=== PATIENT | male | born 1970 | race African-American/Black ===

== ENCOUNTER → 2016-09-20 | Outpatient (CLI) | payer MEDICARE ==
[~2016-09-20] MED LIST: AMLO10 PO; CINA30 PO; CLON.2 PO; RAMI10CA PO; SEVEL800 OR; TOPR100T15 PO
--- NOTE | 2016-09-21 14:16 | EKG ---
Date Performed: 09/20/2016 Time Performed: 14:07:59 PTAGE: 46 years EKG: Sinus rhythm POSSIBLE LEFT ATRIAL ENLARGEMENT BORDERLINE ECG PREVIOUS TRACING : 08/06/2013 05.35 Since previous tracing, R-wave progression has slightly imp roved, otherwise no significant change. DOCTOR: rGeg Taylor Interpretating Date/Time 09/21/2016 14:14:07
== END ==
LOC: HCAV 13:28
PROVIDERS: ATTEND Internal Medicine Nephrology
DX: N18.5 Chronic kidney disease, stage 5 (principal); R94.31 Abnormal electrocardiogram [ECG] [EKG]
CPT/HCPCS: 93005

== ENCOUNTER 2017-02-15 05:18 | Inpatient (IN) | payer MEDICARE, MEDICAID ==
[~2017-02-15] VITALS: Ht 172.7 cm; Wt 134.5 kg
[2017-02-15 05:20] VITALS: BP 159/91; PULSE 81; RESP 16; TEMP 98.1; O2SAT 98
[2017-02-15] MEDS ORDERED: CINA30 PO (05:44)
[2017-02-15] MEDS ORDERED: AMLO10TA2 PO (05:44)
[2017-02-15] MEDS ORDERED: CLON0.2T PO (05:44)
[2017-02-15] MEDS ORDERED: TOPR100T PO (05:44)
[2017-02-15] MEDS ORDERED: SEVEL800 PO (05:44)
[2017-02-15] MEDS ORDERED: ALTA10CA12 PO (05:44)
--- NOTE | 2017-02-15 06:21 | PD ---
HPI Chief Complaint: Edema Time Seen by Provider: 05:43 Travel History International Travel<30 days: No Contact w/Intl Traveler<30days: No Traveled to known affect area: No History of Present Illness HPI Patient is a 46-year-old male with AV fistula in his left upper arm. It was placed many years ago and revised withion last year ago by Dr. Ramos vascular surgeon. Patient says for the last few days he's felt it swelling and tender. It is not hot is not erythematous. He was last dialyzed on Saturday 5 days ago Without complications he was able to be dialyzed a full-time on the machine. Now he says it is swelling significantly in the last 24 hours. took nothing for the pain , has not seen his Nephro MD Hedrick for this compliant. [facility] Past Medical History Arthritis: No Asthma: No Autoimmune Disease: No Blood Disorders: No Heart Rhythm Problems: No Cancer: No Cardiovascular Problems: Yes High Cholesterol: No Chemotherapy: No Chest Pain: No Congestive Heart Failure: Yes COPD: No Cerebrovascular Accident: No Diabetes: No Diminished Hearing: No Endocrine: No GERD: No Glaucoma: No Genitourinary: No Headaches: No Hepatitis: No Hiatal Hernia: No Hypertension: Yes Immune Disorder: No Kidney Stones: No Musculoskeletal: No Neurologic: No Psychiatric: No Respiratory: Yes Immunizations Current: Yes Myocardial Infarction: No Radiation Therapy: No Renal Failure: Yes (DIALYSIS M,W,F) Seizures: No Sickle Cell Disease: No Sleep Apnea: No Thyroid Disease: No Ulcer: No Past Surgical History Abdominal Surgery: No AICD: No Cardiac Surgery: Yes Ear Surgery: No Endocrine Surgery: No Eye Surgery: No Genitourinary Surgery: No Gynecologic Surgery: No Joint Replacement: No Oral Surgery: No Pacemaker: No Thoracic Surgery: No Other Surgery: Yes (AV FISTULA LEFT UPPER ARM) Social History Alcohol Use: Yes (OCC) Tobacco Use: No Substance Use: No Allergies-Medications (Allergen,Severity, Reaction): Coded Allergies: No Known Allergies (Verified Allergy, Unknown, 02/15/17) Reported Meds & Prescriptions Reported Meds & Active Scripts Active Reported Renvela (Sevelamer Carbonate) 800 Mg Tab 800 Mg PO TID Toprol XL (Metoprolol Succinate) 100 Mg Tab 100 Mg PO DAILY Altace (Ramipril) 10 Mg Cap 10 Mg PO BID Clonidine (Clonidine HCl) 0.2 Mg Tab 0.2 Mg PO BID Sensipar (Cinacalcet) 30 Mg Tab 30 Mg PO DAILY Amlodipine (Amlodipine Besylate) 10 Mg Tab 10 Mg PO DAILY Review of Systems Except as stated in HPI: all other systems reviewed are Neg Musculoskeletal: Positive: Other (swelling of the left upper arm around the fistula area) Physical Exam Narrative GENERAL: In no distress awake alert SKIN: Warm and dry. HEAD: Atraumatic. Normocephalic. EYES: Pupils equal and round. No scleral icterus. No injection or drainage. ENT: No nasal bleeding or discharge. Mucous membranes pink and moist. NECK: Trachea midline. No JVD. CARDIOVASCULAR: Regular rate and rhythm. RESPIRATORY: No accessory muscle use. Clear to auscultation. Breath sounds equal bilaterally. GASTROINTESTINAL: Abdomen soft, non-tender, nondistended. Hepatic and splenic margins not palpable. MUSCULOSKELETAL: Extremities the left upper arm has a tortuous swollen area with a be fistula auscultation I do not hear a bruit I do not hear thrill , Point of care bedside ultrasound with linear probe I do not see any large expanding hematoma Doppler color there is minimal flow however I do see what appears to be clots in the central area of the fistulas that I examined NEUROLOGICAL: Awake and alert. No obvious cranial nerve deficits. Motor grossly within normal limits. Five out of 5 muscle strength in the arms and legs. Normal speech. PSYCHIATRIC: Appropriate mood and affect; insight and judgment normal. Data Data Last Documented VS Vital Signs Date Time Temp Pulse Resp B/P (MAP) Pulse Ox O2 Delivery O2 Flow Rate FiO2 02/15/17 05:20 98.1 81 16 159/91 (113) 98 Room Air Orders Orders Complete Blood Count With Diff (02/15/17 06:12) Comprehensive Metabolic Panel (02/15/17 06:12) Prothrombin Time / Inr (Pt) (02/15/17 06:12) Admit Order (Ed Use Only) (02/15/17 06:37) Labs Laboratory Tests Test 02/15/17 06:14 White Blood Count 5.1 TH/MM3 Red Blood Count 3.72 MIL/MM3 Hemoglobin 12.0 GM/DL Hematocrit 35.2 % Mean Corpuscular Volume 94.6 FL Mean Corpuscular Hemoglobin 32.2 PG Mean Corpuscular Hemoglobin Concent 34.0 % Red Cell Distribution Width 15.3 % Platelet Count 176 TH/MM3 Mean Platelet Volume 9.6 FL Neutrophils (%) (Auto) 57.6 % Lymphocytes (%) (Auto) 19.6 % Monocytes (%) (Auto) 19.5 % Eosinophils (%) (Auto) 2.5 % Basophils (%) (Auto) 0.8 % Neutrophils # (Auto) 2.9 TH/MM3 Lymphocytes # (Auto) 1.0 TH/MM3 Monocytes # (Auto) 1.0 TH/MM3 Eosinophils # (Auto) 0.1 TH/MM3 Basophils # (Auto) 0.0 TH/MM3 CBC Comment DIFF FINAL Differential Comment Prothrombin Time 10.5 SEC Prothromb Time International Ratio 1.0 RATIO Blood Urea Nitrogen 67 MG/DL Creatinine 20.37 MG/DL Random Glucose 82 MG/DL Total Protein 8.1 GM/DL Albumin 3.8 GM/DL Calcium Level 9.2 MG/DL Alkaline Phosphatase 87 U/L Aspartate Amino Transf (AST/SGOT) 13 U/L Alanine Aminotransferase (ALT/SGPT) 17 U/L Total Bilirubin 0.5 MG/DL Sodium Level 135 MEQ/L Potassium Level 5.5 MEQ/L Chloride Level 97 MEQ/L Carbon Dioxide Level 25.1 MEQ/L Anion Gap 13 MEQ/L Estimat Glomerular Filtration Rate 3 ML/MIN MDM Medical Decision Making Medical Screen Exam Complete: Yes Emergency Medical Condition: Yes Differential Diagnosis Differential includes thrombosed AV fistula versus hematoma versus pain NOS of AV fistula Narrative Course I call and speak to the on-call computational scientist as well as the on-call vascular surgeon Dr. Nunez he says he will come bedside to examine the patient basic labs are sent as well as coags and I will sign the patient out to the oncoming attending and have vascular examine the patient in the ER . Dr. Nunez came bedside in the ER and decides the fistula is clotted off and will need to be revised needs the patient to be admitted will need a Tessio temporize his ability to be dialyzed and he will have to have a new constructed AV fistula will admit HEPIS AND and vascular consult Procedures Procedure Narrative POC bedside Ultra Sound -- linear probe U/S i see no blood flow through the fistula and I see a large clot in graft Physician Communication Physician Communication Spoke with Nepho and Vascular store protection specialist to arrange management of clotted A/V fistula Diagnosis Primary Impression: Thrombosis due to arteriovenous access device for hemodialysis Qualified Codes: T82.868A - Thrombosis due to vascular prosthetic devices, implants and grafts, initial encounter Admitting Information Admitting Physician Requests: it Price Adan MD Feb 15, 2017 06:21
--- NOTE | 2017-02-15 06:35 | PD.VS.CON ---
History of Present Illness Chief Complaint: Occluded L UE AVF Consult Requested by: Dr. Adan, ED History of Present Illness 46 yo male with ESRD since 2009 who has a L BC AVF revised several months ago. Presented to ED with swelling L UE. Has L Giana that failed and then this access. Last HD was Saturday. RIGHT handed. Past/Family/Social History Past Medical History ESRD HTN Past Surgical History L Giana L BC AVF Social History lives in [facility]. Family History [place] Home Medications Reported Medications Sevelamer Carbonate (Renvela) 800 Mg Tab, 800 MG PO TID for Control phosphorous levels, #90 TAB 0 Refills 02/15/17 Metoprolol Succinate ER 24 HR (Toprol XL) 100 Mg Tab, 100 MG PO DAILY, #30 TAB 0 Refills 02/15/17 Ramipril (Altace) 10 Mg Cap, 10 MG PO BID, #60 CAP 0 Refills 02/15/17 Clonidine (Clonidine) 0.2 Mg Tab, 0.2 MG PO BID for Blood Pressure Management, # 60 TAB 0 Refills 02/15/17 Cinacalcet (Sensipar) 30 Mg Tab, 30 MG PO DAILY, #30 TAB 0 Refills 02/15/17 Amlodipine (Amlodipine) 10 Mg Tab, 10 MG PO DAILY for Blood Pressure Management , #30 TAB 0 Refills 02/15/17 Cinacalcet Hcl 30 mg (Sensipar 30 mg) 30 Mg Tab, PO, TAB 08/06/13 Sevelamer Carbonate (Renvela) 800 Mg Tab, 800 MG OR 11/24/10 Ramipril (Altace) 10 Mg Cap, 10 MG PO BID 11/24/10 Toprol XL (Toprol XL) 100 Mg Tab, 100 MG PO BID, 0 Refills 11/24/10 Amlodipine Besylate (Norvasc) 10 Mg Tab, 10 MG PO DAILY, 0 Refills 11/24/10 Clonidine 0.2 mg (Catapres 0.2 mg) 0.2 Mg Tab, 0.2 MG PO TID, 0 Refills 11/24/10 Coded Allergies: No Known Allergies (Verified Adverse Reaction, Unknown, 02/15/17) Review of Systems Respiratory: COMPLAINS OF: Shortness of breath Cardiovascular: DENIES: Chest pain Musculoskeletal: COMPLAINS OF: Joint pain, Joint Swelling Physical Exam Vitals/I&O Date Time Temp Pulse Resp B/P (MAP) Pulse Ox O2 Delivery O2 Flow Rate FiO2 02/15/17 05:20 98.1 81 16 159/91 (113) 98 Room Air Neuro: alert, oriented, no distress HEENT: NC/AT Neck: no JVD Heart: reg rate Lungs: clear B Abdomen: NT Vascular: L UE palpable radial pulse. Aneurysmal, thrombosed L UE AVF, non tender. Skin not threatened pending Assessment and Plan Plan Occluded aneurysmal L UE AVF. 1. No role for thrombectomy given appearance of what was clearly failing AVF. 2. Needs BMP, catheter and HD (last HD Saturday) - likely best coordinated as inpatient on medical service 3. Tentatively will plan for L UE access excision and new access creation on Saturday Genaro Nunez MD FACS RPVI sheet roller operator [facility] at [facility] [phone] Genaro Nunez MD Feb 15, 2017 06:35
[2017-02-15] MEDS ORDERED: IOHEXOL 350 MG/ML 50 ML BTL (for RAD DIAG) OTHER ONE (06:39)
[2017-02-15 06:41] LABS: AUTOMATED NEUTROPHIL # 2.9 TH/MM3 (1.8-7.7); BASOPHIL % 0.8 % (0.0-2.0); EOSINOPHIL # 0.1 TH/MM3 (0-0.4); EOSINOPHIL % 2.5 % (0.0-4.0); HEMATOCRIT 35.2 % (39.0-51.0); LYMPH % 19.6 % (9.0-44.0); MEAN CELL VOLUME 94.6 FL (80.0-100.0); MEAN CORPUSCULAR HEMOGLOBIN 32.2 PG (27.0-34.0); MEAN PLATELET VOLUME 9.6 FL (7.0-11.0); MONO % 19.5 % (0.0-8.0); NEUT % 57.6 % (16.0-70.0); PLATELET COUNT 176 TH/MM3 (150-450); RED BLOOD COUNT 3.72 MIL/MM3 (4.50-5.90); RED CELL DISTRIBUTION WIDTH 15.3 % (11.6-17.2); WHITE BLOOD COUNT 5.1 TH/MM3 (4.0-11.0)
[2017-02-15] MEDS ORDERED: NALOXONE HCL 0.4 MG/ML AMP IV PUSH PRN ×2 (06:45→11:30)
[2017-02-15] MEDS ORDERED: BISACODYL 10 MG SUPP RECTAL PRN ×2 (06:45→11:30)
[2017-02-15] MEDS ORDERED: ACETAMINOPHEN 325 MG TAB PO PRN ×4 (06:45→11:30)
[2017-02-15] MEDS ORDERED: LACTULOSE SYRUP 20 GM/30 ML CUP PO PRN ×2 (06:45→11:30)
[2017-02-15] MEDS ORDERED: SODIUM CHLORIDE 0.9% FLUSH 10 ML FLUSH IV FLUSH PRN ×4 (06:45→11:30)
[2017-02-15] MEDS ORDERED: SENNOSIDES 8.6 MG TAB PO PRN ×2 (06:45→11:30)
[2017-02-15] MEDS ORDERED: MAGNESIUM HYDROXIDE SUSP 30 ML CUP PO PRN ×2 (06:45→11:30)
[2017-02-15] MEDS ORDERED: ONDANSETRON HCL 4 MG/2 ML VIAL IVP PRN (06:45)
[2017-02-15 06:53] LABS: ALBUMIN 3.8 GM/DL (3.4-5.0); ALT (GPT) 17 U/L (12-78); AST (GOT) 13 U/L (15-37); BICARBONATE 25.1 MEQ/L (21.0-32.0); BLOOD UREA NITROGEN 67 MG/DL (7-18); CALCIUM 9.2 MG/DL (8.5-10.1); CHLORIDE 97 MEQ/L (98-107); GLUCOSE,RANDOM 82 MG/DL (74-106); SODIUM (NA) 135 MEQ/L (136-145)
[2017-02-15 06:55] LABS: PROTHROMBIN TIME - PATIENT 10.5 SEC (9.8-11.6)
[2017-02-15 07:00] LABS: ALKALINE PHOSPHATASE 87 U/L (45-117); GLOMERULAR FILTRATION RATE 3 ML/MIN (>89); TOTAL BILIRUBIN ADULT 0.5 MG/DL (0.2-1.0); TOTAL PROTEIN 8.1 GM/DL (6.4-8.2)
[2017-02-15 07:08] LABS: CREATININE 20.37 MG/DL (0.60-1.30)
[2017-02-15] MEDS ORDERED: SODIUM CHLORIDE 0.9% FLUSH 10 ML FLUSH IV FLUSH SCH (09:00)
[2017-02-15] MEDS ORDERED: DOCUSATE SODIUM 50 MG/SENNA 8.6 MG TAB PO SCH (09:00)
[2017-02-15 09:07] VITALS: BP 150/74; PULSE 78; RESP 17; O2SAT 98
[2017-02-15] MEDS ORDERED: MIDAZOLAM HCL 2 MG/2 ML VIAL ONE (09:32)
[2017-02-15] MEDS ORDERED: ceFAZolin 2 GM PREMIX 50 ML ONE (09:33)
[2017-02-15] MEDS ORDERED: VANCOMYCIN HCL 1000 MG VIAL ONE (09:33)
[2017-02-15] MEDS ORDERED: fentaNYL CITRATE 250 MCG/5 ML AMP ONE (09:33)
[2017-02-15] MEDS ORDERED: SODIUM CHLOR 0.9% 1000 ML INJ 1,000 ML IV PRN (09:42)
[2017-02-15] MEDS ORDERED: SODIUM CHLOR 0.9% 1000 ML INJ 1,000 ML OTHER PRN ×2 (09:42)
[2017-02-15] MEDS ORDERED: MANNITOL 12.5 GM/50 ML VIAL IV PRN (09:45)
[2017-02-15] MEDS ORDERED: GELATIN 12 MM/7 MM FOAM TOP PRN (09:45)
[2017-02-15] MEDS ORDERED: ALBUMIN 25% INJ 100 ML IV PRN (09:45)
[2017-02-15] MEDS ORDERED: NITROGLYCERIN 0.4 MG SL 25 TABS/BTL SL PRN (09:45)
[2017-02-15] MEDS ORDERED: cloNIDine HCL 0.1 MG TAB PO PRN ×2 (09:45→11:30)
[2017-02-15] MEDS ORDERED: diphenhydrAMINE HCL 25 MG CAP PO PRN (09:45)
[2017-02-15] MEDS ORDERED: ONDANSETRON HCL 4 MG/2 ML VIAL IV PUSH PRN (09:45)
[2017-02-15] MEDS ORDERED: HEPARIN SODIUM - IV 10,000 UNITS/10 ML VIAL IV FLUSH PRN (09:45)
--- NOTE | 2017-02-15 10:37 | PD.RAD ---
Post Procedure Progress Note Pre Procedure Diagnosis: (1) ESRD (end stage renal disease) on dialysis Post Procedure Diagnosis: (1) ESRD (end stage renal disease) on dialysis Procedure Date: Feb 15, 2017 Supervising Radiologist: Pratik Myles Estimated blood loss: 5cc Anesthesia: Local, Conscious Sedation Plan of Activity Patient to Unit: Other Patient Condition: Fair Additional Comments: RIght IJ occluded centrally. SVC stenosis Right subclavian catheter placed. Catheter tip is in the distal SVC/right atrium Full dictated report to follow. See PACS Report for procedural detail/treatment Pratik Myles MD Feb 15, 2017 10:37
[2017-02-15] MEDS ORDERED: HEPARIN SODIUM - IV 2,000 UNITS/2 ML VIAL IV FLUSH PRN (10:45)
[2017-02-15] MEDS ORDERED: TEMAZEPAM 15 MG CAP PO PRN (11:30)
[2017-02-15] MEDS ORDERED: oxyCODONE/ACETAMINOPHEN 5 MG/325 MG TAB PO PRN (11:30)
[2017-02-15] MEDS: HEPARIN SODIUM - SQ 10,000 UNITS/ML VIAL SQ SCH ×2 (11:30→23:44)
[2017-02-15] MEDS ORDERED: MORPHINE SULFATE 2 MG/ML INJ IV PUSH PRN ×2 (11:30)
--- NOTE | 2017-02-15 11:37 | HHI.HP ---
[facility] Primary Care Physician Vikash Hedrick MD Admission Diagnosis AV fistula thrombosed Diagnoses: Chief Complaint: DIALYSIS ACCESS NOT WORKING Travel History International Travel<30 Days: No Contact w/Intl Traveler <30 Da: No Traveled to Known Affected Are: No History of Present Illness Patient is a 46-year-old male with A CHRONIC AV fistula in his left upper arm. It was placed A FEW years ago and revised not too long ago by Dr. Ramos OF vascular surgeon. Patient HAS HAD PAIN SWELLING AND TENDERNESS IN LEFT UPPER EXTREMITY. PATIENT DENIES ANY ERYTHEMA IN LEFT UPPER EXTREMITY. He was last dialyzed on Saturday 5 days ago BECAUSE OF THE HOLIDAY, PATIENT NORMALLY dialyzes on Saturday and Saturday and Saturday. Patient normally tolerated a full dialysis session. This had worsening pain and swelling for the last 24 hours. Patient has been seen by Dr. Nunez and had a right-sided chest dialysis access placed by interventional radiology. Patient is currently about to undergo hemodialysis through his no ACCESS. Patient was seen in the dialysis lab. Scheduled to undergo surgery on Saturday with Dr. Nunez to create new ACCESS Review of Systems Constitutional: DENIES: Diaphoretic episodes, Fatigue, Fever, Weight gain, Weight loss, Chills, Dizziness, Change in appetite, Night Sweats Endocrine: DENIES: Heat/cold intolerance, Polydipsia, Polyuria, Polyphagia Eyes: DENIES: Blurred vision, Diplopia, Eye inflammation, Eye pain, Vision loss , Photosensitivity, Double Vision Ears, nose, mouth, throat: DENIES: Tinnitus, Hearing loss, Vertigo, Nasal discharge, Oral lesions, Throat pain, Hoarseness Respiratory: DENIES: Apneas, Cough, Snoring, Wheezing, Hemoptysis Cardiovascular: DENIES: Chest pain, Palpitations, Syncope, Dyspnea on Exertion , PND, Lower Extremity Edema Gastrointestinal: DENIES: Abdominal pain, Black stools, Bloody stools, Constipation, Diarrhea Musculoskeletal: DENIES: Joint pain, Muscle aches, Stiffness, Joint Swelling Integumentary: DENIES: Abnormal pigmentation, Nail changes, Pruritus Hematologic/lymphatic: DENIES: Bruising, Lymphadenopathy Immunologic/allergic: DENIES: Eczema, Urticaria Neurologic: DENIES: Abnormal gait, Headache, Localized weakness, Paresthesias, Seizures Psychiatric: DENIES: Anxiety, Confusion, Mood changes, Depression, Hallucinations Except as stated in HPI: all other systems reviewed are Neg Past Family Social History Past Medical History Hypertension End-stage renal disease on hemodialysis Saturday, Saturday, and Saturday Obesity History of congestive heart failure Past Surgical History Left arm AV fistula creation and revision Multiple dialysis access in past Reported Medications Reported Meds & Active Scripts Active Reported Renvela (Sevelamer Carbonate) 800 Mg Tab 800 Mg PO TID Toprol XL (Metoprolol Succinate) 100 Mg Tab 100 Mg PO DAILY Altace (Ramipril) 10 Mg Cap 10 Mg PO BID Clonidine (Clonidine HCl) 0.2 Mg Tab 0.2 Mg PO BID Sensipar (Cinacalcet) 30 Mg Tab 30 Mg PO DAILY Amlodipine (Amlodipine Besylate) 10 Mg Tab 10 Mg PO DAILY Allergies: Coded Allergies: No Known Allergies (Verified Allergy, Unknown, 02/15/17) Active Ordered Medications Current Medications Sodium Chloride (NS Flush) 2 ml UNSCH PRN IV FLUSH FLUSH AFTER USING IV ACCESS ; Start 02/15/17 at 06:45 Sodium Chloride (NS Flush) 2 ml BID IV FLUSH Last administered on 02/15/17at 08: 37; Start 02/15/17 at 09:00 Acetaminophen (Tylenol) 650 mg Q4H PRN PO TEMP > 100.4; Start 02/15/17 at 06:45 Ondansetron HCl (Zofran Inj) 4 mg Q6H PRN IVP NAUSEA OR VOMITING; Start at 06:45 Naloxone HCl (Narcan Inj) 0.4 mg UNSCH PRN IV PUSH SEE LABEL COMMENTS; Start at 06:45 Senna/Docusate Sodium (Ayse-Colace) 1 tab BID PO ; Start 02/15/17 at 09:00 Magnesium Hydroxide (Milk Of Magnesia Liq) 30 ml Q12H PRN PO Mild constipation ; Start 02/15/17 at 06:45 Sennosides (Senokot) 17.2 mg Q12H PRN PO Moderate constipation; Start 02/15/17 at 06:45 Bisacodyl (Dulcolax Supp) 10 mg DAILY PRN RECTAL SEVERE CONSITIPATION/ IF NPO; Start 02/15/17 at 06:45 Lactulose (Lactulose Liq) 30 ml DAILY PRN PO SEVERE CONSITIPATION/ IF PO; Start 02/15/17 at 06:45 Midazolam HCl (Versed Inj) 4 mg STK-MED ONCE .ROUTE Last administered on at 10:00; Start 02/15/17 at 09:32; Stop 02/15/17 at 09:33; Status DC Fentanyl Citrate (fentaNYL INJ) 250 mcg STK-MED ONCE .ROUTE Last administered on 02/15/17at 10:00; Start 02/15/17 at 09:33; Stop 02/15/17 at 09:34; Status DC Vancomycin HCl (Vancomycin Inj) 1,000 mg STK-MED ONCE .ROUTE Last administered on 02/15/17at 09:50; Start 02/15/17 at 09:33; Stop 02/15/17 at 09:34; Status DC Cefazolin Sodium/ Dextrose 50 ml @ As Directed STK-MED ONCE .ROUTE Last administered on 02/15/17at 09:50; Start 02/15/17 at 09:33; Stop 02/15/17 at 09:34; Status DC Sodium Chloride 1,000 ml @ 0 mls/hr Q0M PRN OTHER For Prime & Rinse Back; Start 02/15/17 at 09:42 Heparin Sodium (Porcine) (Heparin Inj) 8,000 units UNSCH PRN IV FLUSH WITH DIALYSIS; Start 02/15/17 at 09:45 Sodium Chloride 1,000 ml @ 200 mls/hr Q5H PRN IV WITH DIALYSIS; Start 02/15/17 at 09:42 Sodium Chloride 1,000 ml @ 0 mls/hr Q0M PRN OTHER WITH DIALYSIS; Start 02/15/17 at 09:42 Mannitol (Mannitol Inj) 12.5 gm UNSCH PRN IV WITH DIALYSIS; Start 02/15/17 at 09 :45 Albumin Human 100 ml @ 60 mls/hr UNSCH PRN IV WITH DIALYSIS; Start 02/15/17 at 09:45 Sodium Chloride (NS Flush) 5 ml UNSCH PRN IV FLUSH WITH DIALYSIS; Start at 09:45 Heparin Sodium (Porcine) (Heparin Inj) UNSCH PRN .XX WITH DIALYSIS; Start 02/15 at 09:45 Gentamicin Sulfate (Gentamicin (Dialysis) Inj) 20 mg UNSCH PRN OTHER WITH DIALYSIS; Start 02/15/17 at 09:45 Ondansetron HCl (Zofran Inj) 4 mg UNSCH PRN IV PUSH WITH DIALYSIS; Start at 09:45 Acetaminophen (Tylenol) 650 mg UNSCH PRN PO for headach, pain, temp > 101F; Start 02/15/17 at 09:45 Diphenhydramine HCl (Benadryl) 25 mg UNSCH PRN PO for hives/itching/anaphylaxis ; Start 02/15/17 at 09:45 Nitroglycerin (Nitrostat Sl) 0.4 mg UNSCH PRN SL CHEST PAIN; Start 02/15/17 at 09:45 Clonidine (Catapres) 0.1 mg UNSCH PRN PO for BP > 180/100 X 2 readings; Start 02/15/17 at 09:45 Gelatin (Gelfoam 12 Mm/7 Mm Top) 1 foam UNSCH PRN TOP SEE LABEL COMMENTS; Start 02/15/17 at 09:45 Heparin Sodium (Porcine) (*HEPARIN INJ Periprocedural ONLY) 10,000 units STK- MED ONCE .ROUTE Last administered on 02/15/17at 10:23; Start 02/15/17 at 09:43; Stop 02/15/17 at 09:44; Status DC Sodium Chloride (NS Flush) UNSCH PRN IV FLUSH SEE PROTOCOL; Start 02/15/17 at 10:45 Heparin Sodium (Porcine) (Heparin Inj) UNSCH PRN IV FLUSH SEE PROTOCOL; Start 02/15/17 at 10:45 Iohexol (Omnipaque 350 Inj) 15 ml STK-MED ONCE OTHER Last administered on at 10:15; Start 02/15/17 at 06:39; Stop 02/15/17 at 10:56; Status DC Family History Hypertension Renal disease Possible diabetes 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 SKIN: No rashes, ecchymoses or lesions. Cool and dry. HEAD: Atraumatic. Normocephalic. No temporal or scalp tenderness. EYES: Pupils equal round and reactive. Extraocular motions intact. No scleral icterus. No injection or drainage. ENT: Nose without bleeding, purulent drainage or septal hematoma. Throat without erythema, tonsillar hypertrophy or exudate. Uvula midline. Airway patent. NECK: Trachea midline. No JVD or lymphadenopathy. Supple, nontender, no meningeal signs. CARDIOVASCULAR: Regular rate and rhythm without murmurs, gallops, or rubs. S1 and S2 no S3 or S4 no heave or thrill or rub or gallop-- Has right-sided hemodialysis access now RESPIRATORY: Clear to auscultation. Breath sounds equal bilaterally. No wheezes , rales, or rhonchi. GASTROINTESTINAL: Abdomen soft, non-tender, nondistended. No hepato-splenomegaly , or palpable masses. No guarding. Obese MUSCULOSKELETAL: Extremities without clubbing, cyanosis, or edema. No joint tenderness, effusion, or edema noted. No calf tenderness. Negative Homans sign bilaterally. Left upper extremity AV fistula with no thrill or bruit NEUROLOGICAL: Awake and alert. Cranial nerves II through XII intact. Motor and sensory grossly within normal limits. Five out of 5 muscle strength in all muscle groups. Normal speech. Insight and judgment is good Mood and behaviors appropriate Laboratory Laboratory Tests Test 02/15/17 06:14 White Blood Count 5.1 Red Blood Count 3.72 Hemoglobin 12.0 Hematocrit 35.2 Mean Corpuscular Volume 94.6 Mean Corpuscular Hemoglobin 32.2 Mean Corpuscular Hemoglobin Concent 34.0 Red Cell Distribution Width 15.3 Platelet Count 176 Mean Platelet Volume 9.6 Neutrophils (%) (Auto) 57.6 Lymphocytes (%) (Auto) 19.6 Monocytes (%) (Auto) 19.5 Eosinophils (%) (Auto) 2.5 Basophils (%) (Auto) 0.8 Neutrophils # (Auto) 2.9 Lymphocytes # (Auto) 1.0 Monocytes # (Auto) 1.0 Eosinophils # (Auto) 0.1 Basophils # (Auto) 0.0 CBC Comment DIFF FINAL Differential Comment Prothrombin Time 10.5 Prothromb Time International Ratio 1.0 Blood Urea Nitrogen 67 Creatinine 20.37 Random Glucose 82 Total Protein 8.1 Albumin 3.8 Calcium Level 9.2 Alkaline Phosphatase 87 Aspartate Amino Transf (AST/SGOT) 13 Alanine Aminotransferase (ALT/SGPT) 17 Total Bilirubin 0.5 Sodium Level 135 Potassium Level 5.5 Chloride Level 97 Carbon Dioxide Level 25.1 Anion Gap 13 Estimat Glomerular Filtration Rate 3 Result Diagram: 02/15/1761302/15/17613 Caprini VTE Risk Assessment Caprini VTE Risk Assessment: Mod/High Risk (score >= 2) Caprini Risk Assessment Model Point Value = 1 Point Value = 2 Point Value = 3 Point Value = 5 Age 41-60 Minor surgery BMI > 25 kg/m2 Swollen legs Varicose veins or History of unexplained or recurrent spontaneous Oral contraceptives or hormone replacement Sepsis (< 1 month) Serious lung disease, including pneumonia (< 1 month) Abnormal pulmonary function Acute myocardial infarction Congestive heart failure (< 1 month) History of inflammatory bowel disease Medical patient at bed rest Age 61-74 Arthroscopic surgery Major open surgery (> 45 min) Laparoscopic surgery (> 45 min) Malignancy Confined to bed (> 72 hours) Immobilizing plaster cast Central venous access Age >= 75 History of VTE Family history of VTE Factor V Leiden Prothrombin [id number] Lupus anticoagulant Anticardiolipin antibodies Elevated serum homocysteine Heparin-induced thrombocytopenia Other congenital or acquired thrombophilia Stroke (< 1 month) Elective arthroplasty Hip, pelvis, or leg fracture Acute spinal cord injury (< 1 month) Prophylaxis Regimen Total Risk Factor Score Risk Level Prophylaxis Regimen 0-1 Low Early ambulation 2 Moderate Order ONE of the following: *Sequential Compression Device (SCD) *Heparin 5000 units SQ BID 3-4 Higher Order ONE of the following medications: *Heparin 5000 units SQ TID *Enoxaparin/Lovenox 40 mg SQ daily (WT < 150 kg, CrCl > 30 mL/min) *Enoxaparin/Lovenox 30 mg SQ daily (WT < 150 kg, CrCl > 10-29 mL/min) *Enoxaparin/Lovenox 30 mg SQ BID (WT < 150 kg, CrCl > 30 mL/min) AND/OR *Sequential Compression Device (SCD) 5 or more Highest Order ONE of the following medications: *Heparin 5000 units SQ TID (Preferred with Epidurals) *Enoxaparin/Lovenox 40 mg SQ daily (WT < 150 kg, CrCl > 30 mL/min) *Enoxaparin/Lovenox 30 mg SQ daily (WT < 150 kg, CrCl > 10-29 mL/min) *Enoxaparin/Lovenox 30 mg SQ BID (WT < 150 kg, CrCl > 30 mL/min) AND *Sequential Compression Device (SCD) Assessment and Plan Assessment and Plan End-stage renal disease on hemodialysis Saturday with ACCESS not working on the left upper extremity For his hemodialysis Dr. 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 In the case of services not specified as inpatient-only, they are appropriately provided as inpatient services in accordance with the 2-midnight benchmark. Estimated LOS (days): 3 3 days is the estimated time the patient will need to remain in the hospital, assuming treatment plan goals are met and no additional complications. Post-Hospital Plan: Kevin Maria DO Feb 15, 2017 11:37
--- NOTE | 2017-02-15 12:52 | PD.CONS ---
HPI Service Nephrology Consult Requested By Reason for Consult ESRD on HD Primary Care Physician Vikash Hedrick MD History of Present Illness This is our 46 y/o AAM dialysis patient who had his last treatment Saturday. States he missed Sat as he did not feel well. 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 His creatinine was over 20 today, K5.5. He had Permcath placed and is seen today during dialysis. He is a full code. (Pilar Bravo) Review of Systems Constitutional: COMPLAINS OF: Fatigue, Fever Respiratory: COMPLAINS OF: Cough (Pilar Bravo) Past Family Social History Allergies: Coded Allergies: No Known Allergies (Verified Allergy, Unknown, 02/15/17) Past Medical History ESRD on HD MWF Hypertension Metabolic bone disorder Anemia Obesity History of congestive heart failure Past Surgical History Left arm AV fistula creation and revision Multiple dialysis access in past Reported Medications Renvela (Sevelamer Carbonate)800 Mg Tab 3200 Mg PO TID Toprol XL (Metoprolol Succinate) 100 Mg Tab 100 Mg PO DAILY Altace (Ramipril) 10 Mg Cap 10 Mg PO BID Clonidine (Clonidine HCl) 0.2 Mg Tab 0.2 Mg PO BID Sensipar (Cinacalcet) 30 Mg Tab 30 Mg PO DAILY Amlodipine (Amlodipine Besylate) 10 Mg Tab 10 Mg PO DAILY Sensipar 30 mg (Cinacalcet) 30 Mg Tab Unknown Dose PO Renvela (Sevelamer Carbonate) 800 Mg Tab 800 Mg OR Altace (Ramipril) 10 Mg Cap 10 Mg PO BID Toprol XL (Metoprolol Succinate) 100 Mg Tab 100 Mg PO BID Norvasc (Amlodipine Besylate) 10 Mg Tab 10 Mg PO DAILY Catapres 0.2 mg (Clonidine HCl) 0.2 Mg Tab 0.2 Mg PO TID Active Ordered Medications Current Medications Medications (Trade) Dose Ordered Sig/Roberta Route Start Time Stop Time Status Last Admin (NS Flush) 2 ml UNSCH PRN IV FLUSH 02/15/17 06:45 (NS Flush) 2 ml BID IV FLUSH 02/15/17 09:00 02/15/17 08:37 (Tylenol) 650 mg Q4H PRN PO 02/15/17 06:45 (Zofran Inj) 4 mg Q6H PRN IVP 02/15/17 06:45 (Narcan Inj) 0.4 mg UNSCH PRN IV PUSH 02/15/17 06:45 (Ayse-Colace) 1 tab BID PO 02/15/17 09:00 (Milk Of Magnesia Liq) 30 ml Q12H PRN PO 02/15/17 06:45 (Senokot) 17.2 mg Q12H PRN PO 02/15/17 06:45 (Dulcolax Supp) 10 mg DAILY PRN RECTAL 02/15/17 06:45 (Lactulose Liq) 30 ml DAILY PRN PO 02/15/17 06:45 Sodium Chloride 1,000 ml @ 0 mls/hr Q0M PRN OTHER 02/15/17 09:42 (Heparin Inj) 8,000 units UNSCH PRN IV FLUSH 02/15/17 09:45 Sodium Chloride 1,000 ml @ 200 mls/hr Q5H PRN IV 02/15/17 09:42 Sodium Chloride 1,000 ml @ 0 mls/hr Q0M PRN OTHER 02/15/17 09:42 (Mannitol Inj) 12.5 gm UNSCH PRN IV 02/15/17 09:45 Albumin Human 100 ml @ 60 mls/hr UNSCH PRN IV 02/15/17 09:45 (NS Flush) 5 ml UNSCH PRN IV FLUSH 02/15/17 09:45 (Heparin Inj) UNSCH PRN .XX 02/15/17 09:45 (Gentamicin (Dialysis) Inj) 20 mg UNSCH PRN OTHER 02/15/17 09:45 (Zofran Inj) 4 mg UNSCH PRN IV PUSH 02/15/17 09:45 (Tylenol) 650 mg UNSCH PRN PO 02/15/17 09:45 (Benadryl) 25 mg UNSCH PRN PO 02/15/17 09:45 (Nitrostat Sl) 0.4 mg UNSCH PRN SL 02/15/17 09:45 (Catapres) 0.1 mg UNSCH PRN PO 02/15/17 09:45 (Gelfoam 12 Mm/7 Mm Top) 1 foam UNSCH PRN TOP 02/15/17 09:45 (NS Flush) UNSCH PRN IV FLUSH 02/15/17 10:45 (Heparin Inj) UNSCH PRN IV FLUSH 02/15/17 10:45 (Norvasc) 10 mg DAILY PO 02/16/17 09:00 (Sensipar) 30 mg DAILY PO 02/16/17 09:00 (Catapres) 0.2 mg BID PO 02/15/17 21:00 (Toprol Xl) 100 mg DAILY PO 02/16/17 09:00 (Altace) 10 mg BID PO 02/15/17 21:00 (Renvela) 800 mg TID PO 02/15/17 13:00 (Catapres) 0.1 mg Q4H PRN PO 02/15/17 11:30 (NS Flush) 2 ml UNSCH PRN IV FLUSH 02/15/17 11:30 (NS Flush) 2 ml BID IV FLUSH 02/15/17 21:00 (Tylenol) 650 mg Q4H PRN PO 02/15/17 11:30 (Restoril) 15 mg HS PRN PO 02/15/17 11:30 (Heparin Inj) 5,000 units Q12H SQ 02/15/17 11:30 (Tylenol) 650 mg Q6H PRN PO 02/15/17 11:30 (Percocet 5-325 Mg) 1 tab Q6H PRN PO 02/15/17 11:30 (Percocet 10-325 Mg) 1 tab Q6H PRN PO 02/15/17 11:30 (Morphine Inj) 2 mg Q3H PRN IV PUSH 02/15/17 11:30 (Morphine Inj) 4 mg Q3H PRN IV PUSH 02/15/17 11:30 (Narcan Inj) 0.4 mg UNSCH PRN IV PUSH 02/15/17 11:30 (Ayse-Colace) 1 tab BID PO 02/15/17 21:00 (Milk Of Magnesia Liq) 30 ml Q12H PRN PO 02/15/17 11:30 (Senokot) 17.2 mg Q12H PRN PO 02/15/17 11:30 (Dulcolax Supp) 10 mg DAILY PRN RECTAL 02/15/17 11:30 (Lactulose Liq) 30 ml DAILY PRN PO 02/15/17 11:30 Family History Non contributory Social History Non smoking He is Lives locally Full code Disabled independent (Pilar Bravo) Physical Exam Vital Signs Vital Signs Date Time Temp Pulse Resp B/P (MAP) Pulse Ox O2 Delivery O2 Flow Rate FiO2 02/15/17 10:18 02/15/17 09:07 78 17 150/74 (99) 98 Room Air 02/15/17 05:20 98.1 81 16 159/91 (113) 98 Room Air Physical Exam Middle aged AAM sitting up in bed receiving HD Permcath right IJ S1/S2, RRR no murmurs Lungs clear, some coughing on exam Abdomen soft No edema Left arm, AVF large aneuryism Laboratory Laboratory Tests Test 02/15/17 06:14 White Blood Count 5.1 Red Blood Count 3.72 Hemoglobin 12.0 Hematocrit 35.2 Mean Corpuscular Volume 94.6 Mean Corpuscular Hemoglobin 32.2 Mean Corpuscular Hemoglobin Concent 34.0 Red Cell Distribution Width 15.3 Platelet Count 176 Mean Platelet Volume 9.6 Neutrophils (%) (Auto) 57.6 Lymphocytes (%) (Auto) 19.6 Monocytes (%) (Auto) 19.5 Eosinophils (%) (Auto) 2.5 Basophils (%) (Auto) 0.8 Neutrophils # (Auto) 2.9 Lymphocytes # (Auto) 1.0 Monocytes # (Auto) 1.0 Eosinophils # (Auto) 0.1 Basophils # (Auto) 0.0 CBC Comment DIFF FINAL Differential Comment Prothrombin Time 10.5 Prothromb Time International Ratio 1.0 Blood Urea Nitrogen 67 Creatinine 20.37 Random Glucose 82 Total Protein 8.1 Albumin 3.8 Calcium Level 9.2 Alkaline Phosphatase 87 Aspartate Amino Transf (AST/SGOT) 13 Alanine Aminotransferase (ALT/SGPT) 17 Total Bilirubin 0.5 Sodium Level 135 Potassium Level 5.5 Chloride Level 97 Carbon Dioxide Level 25.1 Anion Gap 13 Estimat Glomerular Filtration Rate 3 (Pilar Bravo) Result Diagram: 02/15/1714 02/15/17 0614 Assessment and Plan Problem List: (1) ESRD (end stage renal disease) on dialysis ICD Codes: N18.6 - End stage renal disease; Z99.2 - Dependence on renal dialysis Plan: Last HD Saturday Seen during HD today on a 2K, 250 BFR, goal 4L Resume MWF HD schedule Permcath in place for treatment Avoid IVF, gadolinium is contraindicated Intermittently obtain renal panel Epogen not required for anemia (2) Metabolic bone disease ICD Codes: E88.9 - Metabolic disorder, unspecified; M90.80 - Osteopathy in diseases classified elsewhere, unspecified site Plan: Increase renvela, he takes 3200 mg per meal (3) AVF (arteriovenous fistula) ICD Codes: I77.0 - Arteriovenous fistula, acquired Plan: Vascular is following To have excision and revision or creation on Saturday Temporary access obtained this AM (4) HTN (hypertension) ICD Codes: I10 - Essential (primary) hypertension Plan: Home medications were resumed (Pilar Bravo) Assessment and Plan patient was seen and examined. Had dialysis today after placement of PermCath. Needs AVF revision: scheduled for Saturday. It is thrombosed, has aneurysmal dilatation. 4 liters removed in dialysis today. (Johann Oconnor MD) Pilar Bravo Feb 15, 2017 12:52 Johann Oconnor MD Feb 15, 2017 14:34
[2017-02-15] MEDS ORDERED: SEVELAMER CARBONATE 800 MG TAB PO SCH (13:00)
--- NOTE | 2017-02-15 13:06 | RADRPT ---
EXAM DATE/TIME: 02/15/2017 10:58 [facility] COMPARISON: VENOGRAM, JUGULAR, RIGHT, February 15, 2017, 0:00. INDICATIONS : Patient presents with end stage renal disease in need of dialysis catheter placement for treatment. MEDICAL HISTORY : ESRD HTN Dialysis PAD Heart failure SURGICAL HISTORY : Carolin Coe BC AVF ENCOUNTER: Initial ACUITY: 2 days PAIN SCORE: 8/10 LOCATION: Left arm pain. FLUORO TIME: 6.7 minutes IMAGE SERIES: 3 SEDATION TIME: 45 minutes CONTRAST: 15 cc Omnipaque (iohexol) 350 ACCESS: Right subclavian vein SEDATION: 1.) 4 mg midazolam (Versed) IV 2.) 250 mcg fentanyl (Sublimaze) IV 3.) 1g Vancomycin IV 4.) 2g cefazolin (Ancef) IV Prophylactic antibiotics were administered with appropriate pre-procedure timing. Vancomycin within 2 hours of procedure, Ancef (or alternative) within 1 hour of procedure. DEVICE: 1. 15 Beninese dual lumen 23 cm Leger II Plus catheter PROCEDURE : 1. Ultrasound-guided venipuncture. 2. PermaCath placement. 3. Conscious sedation with continuous EKG and oximetry monitoring. The risks, benefits and alternatives to the procedure were explained and verbal and written consent w as obtained. The site was prepped in sterile fashion. Full sterile technique was used, including ca p, mask, sterile gloves and gown and a large sterile sheet. Hand hygiene and 2% chlorhexidine and/or betadine/alcohol prep was utilized per protocol for cutaneous antisepsis. Sterile gel and sterile p robe cover were utilized for ultrasound guidance. The skin and subcutaneous tissues were infiltrated with local anesthetic solution. The right internal jugular vein was identified with ultrasound and accessed under direct culture nonv isualization. A wire could not be advanced into the central venous system. A small injection of contr ast through the 3/4 dilator demonstrated complete occlusion of the distal right internal jugular vein at its junction with the SVC. The right chest was examined with ultrasound. The right subclavian vein was patent. It was accessed d istally. A wire was manipulated through the subclavian vein into the superior vena cava. The tract wa s dilated. A 14 Beninese hemostatic sheath was placed. A 23 cm permacath was advanced through the peel- away sheath and passed into the superior vena cava without difficulty. The catheter flushed and aspir ated well. Conscious sedation was performed with the prescribed dosages and duration as above in the presence of an independent trained radiology nurse to assist in the monitoring of the patient. EKG and oximetry remained stable throughout the procedure. The patient tolerated the procedure well and there were n o complications. The patient was sent to post anesthesia recovery in stable condition. CONCLUSION: Uncomplicated PermaCath placement as above. Permacath was placed via the subclavian vein. 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 This report was verified electronically.
[2017-02-15] MEDS: HEPARIN SODIUM - IV 10,000 UNITS/10 ML VIAL PRN (15:30)
[2017-02-15] MEDS: GENTAMICIN SULFATE (DIALYSIS USE ONLY) 20 MG/2 ML VIAL OTHER PRN (15:30)
[2017-02-15] MEDS: SEVELAMER CARBONATE 800 MG TAB PO SCH ×2 (15:44→17:26)
[2017-02-15 17:15] VITALS: BP 158/95; PULSE 100; RESP 21; TEMP 96.7; O2SAT 98
[2017-02-15 20:00] VITALS: BP 133/86; PULSE 106; RESP 20; TEMP 96.6; O2SAT 95
[2017-02-15] MEDS: RAMIPRIL 5 MG CAP PO SCH (20:56)
[2017-02-15] MEDS: DOCUSATE SODIUM 50 MG/SENNA 8.6 MG TAB PO SCH (20:57)
[2017-02-15] MEDS: cloNIDine HCL 0.2 MG TAB PO SCH (20:57)
[2017-02-15 20:58] VITALS: PULSE 111
[2017-02-15] MEDS: SODIUM CHLORIDE 0.9% FLUSH 10 ML FLUSH IV FLUSH SCH (22:38)
--- NOTE | 2017-02-15 23:41 | RADRPT ---
EXAM DATE/TIME: 02/15/2017 21:52 [facility] COMPARISON: VENOGRAM, JUGULAR, RIGHT, February 15, 2017, 0:00. INDICATIONS : Arteriovenous fistula planning. MEDICAL HISTORY : Congestive heart failure. Hypertension. Dyspnea. Renal failure. Cardiac disorders. SURGICAL HISTORY : Cardiac surgery. Dialysis. AV fistula left upper arm. ENCOUNTER: Initial ACUITY: 1 day PAIN SCORE: 5/10 LOCATION: Bilateral arm. FINDINGS: RIGHT UPPER EXTREMITY: There is spontaneous flow documented in the brachial, basilic, cephalic, axillary, and subclavian vei ns. The vessels are compressible and augmentation response is documented. No filling defects are se en. The flow is phasic with respiration. Direction of flow in the jugular vein is caudal. LEFT UPPER EXTREMITY: The patient is status post prior AV fistula. There is thrombus in the region of the fistula graft ext ending into the cephalic vein and distal brachial vein. A internal jugular vein, subclavian vein, axi llary vein, and proximal brachial vein are patent with normal color Doppler flow. Left ulnar and radi al veins are also within normal limits. CONCLUSION: 1. No evidence of right upper extremity DVT. 2. Evidence of clotting of AV fistula in the left upper arm with clot extending into the region of th e cephalic vein and distal brachial vein. Eugene Ware MD on February 15, 2017 at 23:30 Board Certified Radiologist. This report was verified electronically.
[2017-02-15] MEDS: oxyCODONE/ACETAMINOPHEN 10 MG/325 MG TAB PO PRN (23:45)
[2017-02-16] VITALS (10 sets, daily range): BP systolic 111–163; BP diastolic 56–90; PULSE 82–112; RESP 17–20; TEMP 96.9–98.3; O2SAT 94–98
--- NOTE | 2017-02-16 07:19 | RADRPT ---
EXAM DATE/TIME: 02/15/2017 22:09 [facility] COMPARISON: No previous studies available for comparison. INDICATIONS : Arteriovenous fistula planning. MEDICAL HISTORY : Congestive heart failure. Hypertension. Dyspnea. Renal failure. Cardiac disorders. SURGICAL HISTORY : Cardiac surgery. Dialysis. AV fistula left upper arm. ENCOUNTER: Initial ACUITY: 2 day PAIN SCORE: 5/10 LOCATION: Bilateral arm. CEPHALIC: ORIGIN: Right 3 mm Left Thrombosed MID-ARM: Right 2 mm Left Thrombosed ELBOW: Right 3 mm Left Thrombosed FOREARM: Right 2 mm Left 3 mm WRIST: Right 4 mm Left 3 mm BASILIC: ORIGIN: Right 6 mm Left 3 mm MID-ARM: Right 4 mm Left 9 mm ELBOW: Right 3 mm Left 5 mm ARTERIES: BRACHIAL: Right 5 mm Left 7 mm ULNAR: Right 3 mm Left 4 mm RADIAL: Right 3 mm Left 3 mm VEINS: RADIAL: Right 2 mm Left 2 mm ULNAR: Right 2 mm Left 2 mm FINDINGS: The venous system of the upper extremities are patent by color Doppler imaging. Measurements of the arm veins (in mm) are listed above. CONCLUSION: Thrombosis of the left cephalic vein above the elbow. Otherwise, measurements of the arm veins are listed above. Genaro Bass MD on February 16, 2017 at 7:15 Board Certified Radiologist. This report was verified electronically.
[2017-02-16] MEDS: SEVELAMER CARBONATE 800 MG TAB PO SCH ×3 (08:56→18:19)
[2017-02-16] MEDS: DOCUSATE SODIUM 50 MG/SENNA 8.6 MG TAB PO SCH ×2 (08:56→19:39)
[2017-02-16] MEDS: METOPROLOL SUCCINATE 50 MG EXTENDED RELEASE TAB PO SCH (08:56)
[2017-02-16] MEDS: RAMIPRIL 5 MG CAP PO SCH ×2 (08:56→19:40)
[2017-02-16] MEDS: cloNIDine HCL 0.2 MG TAB PO SCH ×2 (08:56→19:39)
[2017-02-16 09:10] LABS: AUTOMATED NEUTROPHIL # 2.7 TH/MM3 (1.8-7.7); BASOPHIL % 0.8 % (0.0-2.0); EOSINOPHIL # 0.1 TH/MM3 (0-0.4); EOSINOPHIL % 2.9 % (0.0-4.0); HEMATOCRIT 35.3 % (39.0-51.0); HEMOGLOBIN 11.7 GM/DL (13.0-17.0); LYMPH % 18.9 % (9.0-44.0); LYMPHOCYTE # 0.9 TH/MM3 (1.0-4.8); MEAN CELL VOLUME 95.4 FL (80.0-100.0); MEAN CORPUSCULAR HEMOGLOBIN 31.6 PG (27.0-34.0); MEAN CORPUSCULAR HGB CONC 33.2 % (32.0-36.0); MEAN PLATELET VOLUME 9.5 FL (7.0-11.0); MONO % 18.9 % (0.0-8.0); MONOCYTE # 0.9 TH/MM3 (0-0.9); NEUT % 58.5 % (16.0-70.0); PLATELET COUNT 161 TH/MM3 (150-450); RED BLOOD COUNT 3.71 MIL/MM3 (4.50-5.90); RED CELL DISTRIBUTION WIDTH 15.3 % (11.6-17.2); WHITE BLOOD COUNT 4.7 TH/MM3 (4.0-11.0)
[2017-02-16] MEDS: oxyCODONE/ACETAMINOPHEN 10 MG/325 MG TAB PO PRN ×2 (09:13→18:22)
[2017-02-16] MEDS: CINACALCET HYDROCHLORIDE 30 MG TAB PO SCH (09:39)
[2017-02-16] MEDS: SODIUM CHLORIDE 0.9% FLUSH 10 ML FLUSH IV FLUSH SCH ×2 (09:40→19:40)
[2017-02-16 09:45] LABS: ALBUMIN 3.6 GM/DL (3.4-5.0); ALKALINE PHOSPHATASE 87 U/L (45-117); ALT (GPT) 12 U/L (12-78); AST (GOT) 17 U/L (15-37); BICARBONATE 26.5 MEQ/L (21.0-32.0); BLOOD UREA NITROGEN 54 MG/DL (7-18); CALCIUM 10.3 MG/DL (8.5-10.1); CHLORIDE 96 MEQ/L (98-107); FREE T4 0.99 NG/DL (0.76-1.46); GLOMERULAR FILTRATION RATE 3 ML/MIN (>89); GLUCOSE,RANDOM 85 MG/DL (74-106); MAGNESIUM 2.4 MG/DL (1.5-2.5); PHOSPHORUS 8.4 MG/DL (2.5-4.9); SODIUM (NA) 134 MEQ/L (136-145); TOTAL BILIRUBIN ADULT 0.5 MG/DL (0.2-1.0); TOTAL PROTEIN 8.3 GM/DL (6.4-8.2)
[2017-02-16 09:51] LABS: CREATININE 18.24 MG/DL (0.60-1.30)
[2017-02-16 10:25] LABS: HEMOGLOBIN A1C 5.3 % (4.3-6.0)
[2017-02-16] MEDS: HEPARIN SODIUM - SQ 10,000 UNITS/ML VIAL SQ SCH (12:28)
--- NOTE | 2017-02-16 14:23 | HHI.NPPN ---
Subjective History of Present Illness 46 year old male with ESRD need AVF revision Objective Data Data Vital Signs Date Time Temp Pulse Resp B/P (MAP) Pulse Ox O2 Delivery O2 Flow Rate FiO2 02/16/17 12:00 98.3 94 17 142/65 (90) 98 02/16/17 08:00 97.3 93 18 163/90 (114) 96 02/16/17 06:18 97.0 86 20 111/56 (74) 97 02/16/17 04:19 83 02/16/17 03:09 96 02/16/17 00:07 91 02/16/17 00:00 97.6 89 20 116/58 (77) 96 02/15/17 20:58 111 02/15/17 20:00 96.6 106 20 133/86 (102) 95 02/15/17 17:15 96.7 100 21 158/95 (116) 98 02/15/17 16:44 20 -: 02/16/17 0813 02/16/17 0813 Physical Exam General Appearance: Well Developed, Well Nourished Eyes Eye Exam: Pupils Equal Neck Neck Exam: Neck Supple Pulmonary Resp Exam: Clear Bilaterally, Breath Sounds Equal Cardiology CV Exam: Regular, Normal Sinus Rhythm Gastrointestinal/Abdomen GI Exam: Soft, Non-Tender, Bowel Sounds Present Extremeties Extremities Exam: No Edema Assessment/Plan Problem List: (1) ESRD (end stage renal disease) on dialysis ICD Codes: N18.6 - End stage renal disease; Z99.2 - Dependence on renal dialysis Plan: seen at dialysis, goal 3L Resume MWF HD schedule Permcath in place for treatment Avoid IVF, gadolinium is contraindicated Intermittently obtain renal panel Epogen not required for anemia AVF revision Saturday (2) Metabolic bone disease ICD Codes: E88.9 - Metabolic disorder, unspecified; M90.80 - Osteopathy in diseases classified elsewhere, unspecified site Plan: Increase renvela, he takes 3200 mg per meal (3) AVF (arteriovenous fistula) ICD Codes: I77.0 - Arteriovenous fistula, acquired Plan: Vascular is following To have excision and revision or creation on Saturday Temporary access obtained this AM (4) HTN (hypertension) ICD Codes: I10 - Essential (primary) hypertension Plan: Home medications were resumed Flash Molina MD Feb 16, 2017 14:23
--- NOTE | 2017-02-16 16:29 | HHI.PR ---
Subjective Remarks f/u failed AV fistula. patient has no complaints. He stated he has been doing well. no events. Objective Vitals Vital Signs Date Time Temp Pulse Resp B/P (MAP) Pulse Ox O2 Delivery O2 Flow Rate FiO2 02/16/17 12:00 98.3 94 17 142/65 (90) 98 02/16/17 08:00 97.3 93 18 163/90 (114) 96 02/16/17 06:18 97.0 86 20 111/56 (74) 97 02/16/17 04:19 83 02/16/17 03:09 96 02/16/17 00:07 91 02/16/17 00:00 97.6 89 20 116/58 (77) 96 02/15/17 20:58 111 02/15/17 20:00 96.6 106 20 133/86 (102) 95 02/15/17 17:15 96.7 100 21 158/95 (116) 98 02/15/17 16:44 20 I/O 02/15/17 02/15/17 02/15/17 02/16/17 02/16/17 02/16/17 07:00 15:00 23:00 07:00 15:00 23:00 Intake Total 180 ml Output Total 4000 ml Balance -4000 ml 180 ml Intake Oral 180 ml Output Hemodialysis 4000 ml # Voids 1 Result Diagram: 02/16/17 0813 02/16/17 0813 Objective Remarks GENERAL: This is a well-nourished, well-developed patient, in no apparent distress. CARDIOVASCULAR: Regular rate and rhythm without murmurs, gallops, or rubs. S1 and S2 no S3 or S4 no heave or thrill or rub or gallop-- Has right-sided hemodialysis access now RESPIRATORY: Clear to auscultation. Breath sounds equal bilaterally. No wheezes , rales, or rhonchi. GASTROINTESTINAL: Abdomen soft, non-tender, nondistended. No hepato-splenomegaly , or palpable masses. No guarding. Obese MUSCULOSKELETAL: Extremities without clubbing, cyanosis, or edema. No joint tenderness, effusion, or edema noted. No calf tenderness. Negative Homans sign bilaterally. Left upper extremity AV fistula with no thrill or bruit Medications and IVs Current Medications Sodium Chloride (NS Flush) 2 ml UNSCH PRN IV FLUSH FLUSH AFTER USING IV ACCESS ; Start 1/5/18 at 06:45; Stop 02/15/17 at 16:14; Status DC Sodium Chloride (NS Flush) 2 ml BID IV FLUSH Last administered on 02/15/17at 08: 37; Start 02/15/17 at 09:00; Stop 02/15/17 at 16:14; Status DC Acetaminophen (Tylenol) 650 mg Q4H PRN PO TEMP > 100.4; Start 02/15/17 at 06:45 ; Stop 02/15/17 at 16:17; Status DC Ondansetron HCl (Zofran Inj) 4 mg Q6H PRN IVP NAUSEA OR VOMITING; Start at 06:45 Naloxone HCl (Narcan Inj) 0.4 mg UNSCH PRN IV PUSH SEE LABEL COMMENTS; Start at 06:45; Stop 02/15/17 at 16:16; Status DC Senna/Docusate Sodium (Ayse-Colace) 1 tab BID PO ; Start 02/15/17 at 09:00; Stop 02/15/17 at 16:15; Status DC Magnesium Hydroxide (Milk Of Magnesia Liq) 30 ml Q12H PRN PO Mild constipation ; Start 02/15/17 at 06:45; Stop 02/15/17 at 16:15; Status DC Sennosides (Senokot) 17.2 mg Q12H PRN PO Moderate constipation; Start 02/15/17 at 06:45; Stop 02/15/17 at 16:15; Status DC Bisacodyl (Dulcolax Supp) 10 mg DAILY PRN RECTAL SEVERE CONSITIPATION/ IF NPO; Start 02/15/17 at 06:45; Stop 02/15/17 at 16:16; Status DC Lactulose (Lactulose Liq) 30 ml DAILY PRN PO SEVERE CONSITIPATION/ IF PO; Start 02/15/17 at 06:45; Stop 02/15/17 at 16:15; Status DC Midazolam HCl (Versed Inj) 4 mg STK-MED ONCE .ROUTE Last administered on at 10:00; Start 02/15/17 at 09:32; Stop 02/15/17 at 09:33; Status DC Fentanyl Citrate (fentaNYL INJ) 250 mcg STK-MED ONCE .ROUTE Last administered on 02/15/17at 10:00; Start 02/15/17 at 09:33; Stop 02/15/17 at 09:34; Status DC Vancomycin HCl (Vancomycin Inj) 1,000 mg STK-MED ONCE .ROUTE Last administered on 02/15/17at 09:50; Start 02/15/17 at 09:33; Stop 02/15/17 at 09:34; Status DC Cefazolin Sodium/ Dextrose 50 ml @ As Directed STK-MED ONCE .ROUTE Last administered on 02/15/17at 09:50; Start 02/15/17 at 09:33; Stop 02/15/17 at 09:34; Status DC Sodium Chloride 1,000 ml @ 0 mls/hr Q0M PRN OTHER For Prime & Rinse Back Last administered on 02/15/17at 15:30; Start 02/15/17 at 09:42 Heparin Sodium (Porcine) (Heparin Inj) 8,000 units UNSCH PRN IV FLUSH WITH DIALYSIS; Start 02/15/17 at 09:45 Sodium Chloride 1,000 ml @ 200 mls/hr Q5H PRN IV WITH DIALYSIS; Start 02/15/17 at 09:42 Sodium Chloride 1,000 ml @ 0 mls/hr Q0M PRN OTHER WITH DIALYSIS; Start 02/15/17 at 09:42 Mannitol (Mannitol Inj) 12.5 gm UNSCH PRN IV WITH DIALYSIS; Start 02/15/17 at 09 :45 Albumin Human 100 ml @ 60 mls/hr UNSCH PRN IV WITH DIALYSIS; Start 02/15/17 at 09:45 Sodium Chloride (NS Flush) 5 ml UNSCH PRN IV FLUSH WITH DIALYSIS; Start at 09:45 Heparin Sodium (Porcine) (Heparin Inj) UNSCH PRN .XX WITH DIALYSIS Last administered on 02/15/17at 15:30; Start 02/15/17 at 09:45 Gentamicin Sulfate (Gentamicin (Dialysis) Inj) 20 mg UNSCH PRN OTHER WITH DIALYSIS Last administered on 02/15/17at 15:30; Start 02/15/17 at 09:45 Ondansetron HCl (Zofran Inj) 4 mg UNSCH PRN IV PUSH WITH DIALYSIS; Start at 09:45 Acetaminophen (Tylenol) 650 mg UNSCH PRN PO for headach, pain, temp > 101F; Start 02/15/17 at 09:45 Diphenhydramine HCl (Benadryl) 25 mg UNSCH PRN PO for hives/itching/anaphylaxis ; Start 02/15/17 at 09:45 Nitroglycerin (Nitrostat Sl) 0.4 mg UNSCH PRN SL CHEST PAIN; Start 02/15/17 at 09:45 Clonidine (Catapres) 0.1 mg UNSCH PRN PO for BP > 180/100 X 2 readings; Start 02/15/17 at 09:45 Gelatin (Gelfoam 12 Mm/7 Mm Top) 1 foam UNSCH PRN TOP SEE LABEL COMMENTS; Start 02/15/17 at 09:45 Heparin Sodium (Porcine) (*HEPARIN INJ Periprocedural ONLY) 10,000 units STK- MED ONCE .ROUTE Last administered on 02/15/17at 10:23; Start 02/15/17 at 09:43; Stop 02/15/17 at 09:44; Status DC Sodium Chloride (NS Flush) UNSCH PRN IV FLUSH SEE PROTOCOL; Start 02/15/17 at 10:45 Heparin Sodium (Porcine) (Heparin Inj) UNSCH PRN IV FLUSH SEE PROTOCOL; Start 02/15/17 at 10:45 Iohexol (Omnipaque 350 Inj) 15 ml STK-MED ONCE OTHER Last administered on at 10:15; Start 02/15/17 at 06:39; Stop 02/15/17 at 10:56; Status DC Amlodipine Besylate (Norvasc) 10 mg DAILY PO Last administered on 02/16/17at 08: 56; Start 02/16/17 at 09:00 Cinacalcet (Sensipar) 30 mg DAILY PO Last administered on 02/16/17at 09:39; Start 02/16/17 at 09:00 Clonidine (Catapres) 0.2 mg BID PO Last administered on 02/16/17at 08:56; Start 02/15/17 at 21:00 Metoprolol Succinate (Toprol Xl) 100 mg DAILY PO Last administered on 02/16/17at 08:56; Start 02/16/17 at 09:00 Ramipril (Altace) 10 mg BID PO Last administered on 02/16/17at 08:56; Start at 21:00 Sevelamer Carbonate (Renvela) 800 mg TID PO ; Start 02/15/17 at 13:00; Stop at 13:00; Status DC Clonidine (Catapres) 0.1 mg Q4H PRN PO SBP>160, DBP>90; Start 02/15/17 at 11:30 Sodium Chloride (NS Flush) 2 ml UNSCH PRN IV FLUSH FLUSH AFTER USING IV ACCESS ; Start 02/15/17 at 11:30 Sodium Chloride (NS Flush) 2 ml BID IV FLUSH Last administered on 02/16/17at 09: 40; Start 02/15/17 at 21:00 Acetaminophen (Tylenol) 650 mg Q4H PRN PO TEMP > 100.4; Start 02/15/17 at 11:30 Temazepam (Restoril) 15 mg HS PRN PO INSOMNIA; Start 02/15/17 at 11:30 Heparin Sodium (Porcine) (Heparin Inj) 5,000 units Q12H SQ Last administered on 02/16/17at 12:28; Start 02/15/17 at 11:30 Acetaminophen (Tylenol) 650 mg Q6H PRN PO PAIN SCALE 1 TO 2; Start 02/15/17 at 11:30 Oxycodone/ Acetaminophen (Percocet 5-325 Mg) 1 tab Q6H PRN PO PAIN SCALE 3 TO 5 Last administered on 02/15/17at 15:44; Start 02/15/17 at 11:30 Oxycodone/ Acetaminophen (Percocet 10-325 Mg) 1 tab Q6H PRN PO PAIN SCALE 6 TO 10 Last administered on 02/16/17at 09:13; Start 02/15/17 at 11:30 Morphine Sulfate (Morphine Inj) 2 mg Q3H PRN IV PUSH Pain 3-5; if unable to take PO; Start 02/15/17 at 11:30 Morphine Sulfate (Morphine Inj) 4 mg Q3H PRN IV PUSH Pain 6-10;if unable to take PO; Start 02/15/17 at 11:30 Naloxone HCl (Narcan Inj) 0.4 mg UNSCH PRN IV PUSH SEE LABEL COMMENTS; Start at 11:30 Senna/Docusate Sodium (Ayse-Colace) 1 tab BID PO Last administered on 02/16/17at 08:56; Start 02/15/17 at 21:00 Magnesium Hydroxide (Milk Of Magnesia Liq) 30 ml Q12H PRN PO Mild constipation ; Start 02/15/17 at 11:30 Sennosides (Senokot) 17.2 mg Q12H PRN PO Moderate constipation; Start 02/15/17 at 11:30 Bisacodyl (Dulcolax Supp) 10 mg DAILY PRN RECTAL SEVERE CONSITIPATION; Start at 11:30 Lactulose (Lactulose Liq) 30 ml DAILY PRN PO SEVERE CONSITIPATION; Start at 11:30 Sevelamer Carbonate (Renvela) 3,200 mg TID PO Last administered on 02/16/17at 12: 29; Start 02/15/17 at 14:00 A/P Assessment and Plan Patient p/w failed AV fistula Occluded aneurysmal L UE AVF. -per vascular surgeon no role for thrombectomy given appearance of what was clearly failing AVF. -s/p catheter -tentatively plan for L UE access excision and new access creation on Saturday End-stage renal disease on hemodialysis Saturday -Nephro consulted and ff Hypertension -continue home medication. Hyperkalemia - due to end-stage renal disease -asymptomatic. -dialysis as above. Myra Mohamud MD Feb 16, 2017 16:29
[2017-02-17] VITALS (11 sets, daily range): BP systolic 95–154; BP diastolic 53–93; PULSE 73–92; RESP 17–21; TEMP 96.4–97.4; O2SAT 93–98
[2017-02-17] MEDS: oxyCODONE/ACETAMINOPHEN 10 MG/325 MG TAB PO PRN ×3 (00:31→20:01)
[2017-02-17] MEDS: HEPARIN SODIUM - SQ 10,000 UNITS/ML VIAL SQ SCH ×3 (00:32→23:20)
--- NOTE | 2017-02-17 08:19 | PD.VS.PN ---
Pre-operative Note Pre-operative diagnosis: Thrombosed L UE AVF, skin compromise Planned procedure: L UE access excision Interval History: Pt has had HD Fri and Sat. Arm ok. Will plan for access excision and then re- evaluate for new AVF after arm heals Labs: Laboratory Results Test 02/15/17 06:14 02/16/17 08:13 Prothromb Time International Ratio 1.0 RATIO Anion Gap 12 MEQ/L (5-15) Blood Urea Nitrogen 54 MG/DL (7-18) Creatinine 18.24 MG/DL (0.60-1.30) Random Glucose 85 MG/DL (74-106) Total Protein 8.3 GM/DL (6.4-8.2) Albumin 3.6 GM/DL (3.4-5.0) Calcium Level 10.3 MG/DL (8.5-10.1) Phosphorus Level 8.4 MG/DL (2.5-4.9) Magnesium Level 2.4 MG/DL (1.5-2.5) Alkaline Phosphatase 87 U/L (45-117) Aspartate Amino Transf (AST/SGOT) 17 U/L (15-37) Alanine Aminotransferase (ALT/SGPT) 12 U/L (12-78) Total Bilirubin 0.5 MG/DL (0.2-1.0) Sodium Level 134 MEQ/L (136-145) Potassium Level 5.4 MEQ/L (3.5-5.1) Chloride Level 96 MEQ/L (98-107) Carbon Dioxide Level 26.5 MEQ/L (21.0-32.0) Hematocrit 35.3 % (39.0-51.0) Hemoglobin 11.7 GM/DL (13.0-17.0) Mean Corpuscular Hemoglobin 31.6 PG (27.0-34.0) Mean Corpuscular Hemoglobin Concent 33.2 % (32.0-36.0) Mean Corpuscular Volume 95.4 FL (80.0-100.0) Mean Platelet Volume 9.5 FL (7.0-11.0) Platelet Count 161 TH/MM3 (150-450) Red Blood Count 3.71 MIL/MM3 (4.50-5.90) Red Cell Distribution Width 15.3 % (11.6-17.2) White Blood Count 4.7 TH/MM3 (4.0-11.0) Blood: T&S ordered Imaging: Last Impressions Upper Extremity Ultrasound 02/15/17 0000 Signed Impressions: Service Date/Time: Wednesday, February 15, 2017 21:52 - CONCLUSION: 1. No evidence of right upper extremity DVT. 2. Evidence of clotting of AV fistula in the left upper arm with clot extending into the region of the cephalic vein and distal brachial vein. Eugene Ware MD Catheter Placement X-Ray 02/15/17 Signed Impressions: Service Date/Time: Wednesday, February 15, 2017 10:58 - CONCLUSION: Uncomplicated PermaCath placement as above. Permacath was placed via the subclavian vein. Complete occlusion of the jugular vein at its junction with the SVC Pratik Myles MD Orders: NPO Vanc 1g IV OCTOR Post-operative destination: PACU Operative site marked: Yes Consent: Informed consent has been obtained from Jackson Rubio. I have explained the procedure in detail and discussed the risks, benefits, and potential complications. All questions have been answered. Genaro Nunez MD Feb 17, 2017 08:19
[2017-02-17] MEDS: RAMIPRIL 5 MG CAP PO SCH ×2 (09:00→20:01)
[2017-02-17] MEDS: METOPROLOL SUCCINATE 50 MG EXTENDED RELEASE TAB PO SCH ×2 (09:00→13:17)
[2017-02-17] MEDS: cloNIDine HCL 0.2 MG TAB PO SCH ×2 (09:00→20:01)
[2017-02-17] MEDS: CINACALCET HYDROCHLORIDE 30 MG TAB PO SCH (10:02)
[2017-02-17] MEDS: SEVELAMER CARBONATE 800 MG TAB PO SCH ×3 (10:04→17:27)
[2017-02-17] MEDS: DOCUSATE SODIUM 50 MG/SENNA 8.6 MG TAB PO SCH ×2 (10:04→20:01)
[2017-02-17] MEDS: SODIUM CHLORIDE 0.9% FLUSH 10 ML FLUSH IV FLUSH SCH ×2 (10:04→20:07)
--- NOTE | 2017-02-17 10:18 | HHI.PR ---
Subjective Remarks f/u for occluded aneurysmal L UE AVF. patient has no complaints discussed case with patient's nurse BP lower in AM but asymptomatic. BP meds held. Objective Vitals Vital Signs Date Time Temp Pulse Resp B/P (MAP) Pulse Ox O2 Delivery O2 Flow Rate FiO2 02/17/17 08:00 96.6 76 19 95/53 (67) 96 02/17/17 04:00 97.0 92 20 126/66 (86) 98 02/17/17 04:00 79 02/17/17 00:23 96.7 92 20 122/70 (87) 96 02/17/17 00:00 73 02/16/17 20:31 98.2 112 20 121/66 (84) 94 02/16/17 20:00 84 02/16/17 17:30 98 21 02/16/17 17:30 96.9 82 18 120/65 (83) 97 02/16/17 12:00 98.3 94 17 142/65 (90) 98 I/O 02/16/17 02/16/17 02/16/17 02/17/17 02/17/17 02/17/17 07:00 15:00 23:00 07:00 15:00 23:00 Intake Total 180 ml 525 ml 480 ml Output Total 1000 ml Balance 180 ml -475 ml 480 ml Intake Oral 180 ml 525 ml 480 ml Output Hemodialysis 1000 ml # Voids 1 1 1 # Bowel Movements 0 0 Result Diagram: 02/16/17 0813 02/16/17 0813 Objective Remarks GENERAL: This is a well-nourished, well-developed patient, in no apparent distress. CARDIOVASCULAR: Regular rate and rhythm without murmurs, gallops, or rubs. S1 and S2 no S3 or S4 no heave or thrill or rub or gallop-- Has right-sided hemodialysis access now RESPIRATORY: Clear to auscultation. Breath sounds equal bilaterally. No wheezes , rales, or rhonchi. GASTROINTESTINAL: Abdomen soft, non-tender, nondistended. No hepato-splenomegaly , or palpable masses. No guarding. Obese MUSCULOSKELETAL: Extremities without clubbing, cyanosis, or edema. No joint tenderness, effusion, or edema noted. No calf tenderness. Negative Homans sign bilaterally. Left upper extremity AV fistula with no thrill or bruit Medications and IVs Current Medications Sodium Chloride (NS Flush) 2 ml UNSCH PRN IV FLUSH FLUSH AFTER USING IV ACCESS ; Start 02/15/17 at 06:45; Stop 02/15/17 at 16:14; Status DC Sodium Chloride (NS Flush) 2 ml BID IV FLUSH Last administered on 02/15/17at 08: 37; Start 02/15/17 at 09:00; Stop 02/15/17 at 16:14; Status DC Acetaminophen (Tylenol) 650 mg Q4H PRN PO TEMP > 100.4; Start 02/15/17 at 06:45 ; Stop 02/15/17 at 16:17; Status DC Ondansetron HCl (Zofran Inj) 4 mg Q6H PRN IVP NAUSEA OR VOMITING; Start at 06:45 Naloxone HCl (Narcan Inj) 0.4 mg UNSCH PRN IV PUSH SEE LABEL COMMENTS; Start at 06:45; Stop 02/15/17 at 16:16; Status DC Senna/Docusate Sodium (Ayse-Colace) 1 tab BID PO ; Start 02/15/17 at 09:00; Stop 02/15/17 at 16:15; Status DC Magnesium Hydroxide (Milk Of Magnesia Liq) 30 ml Q12H PRN PO Mild constipation ; Start 02/15/17 at 06:45; Stop 02/15/17 at 16:15; Status DC Sennosides (Senokot) 17.2 mg Q12H PRN PO Moderate constipation; Start 02/15/17 at 06:45; Stop 02/15/17 at 16:15; Status DC Bisacodyl (Dulcolax Supp) 10 mg DAILY PRN RECTAL SEVERE CONSITIPATION/ IF NPO; Start 02/15/17 at 06:45; Stop 02/15/17 at 16:16; Status DC Lactulose (Lactulose Liq) 30 ml DAILY PRN PO SEVERE CONSITIPATION/ IF PO; Start 02/15/17 at 06:45; Stop 02/15/17 at 16:15; Status DC Midazolam HCl (Versed Inj) 4 mg STK-MED ONCE .ROUTE Last administered on at 10:00; Start 02/15/17 at 09:32; Stop 02/15/17 at 09:33; Status DC Fentanyl Citrate (fentaNYL INJ) 250 mcg STK-MED ONCE .ROUTE Last administered on 02/15/17at 10:00; Start 02/15/17 at 09:33; Stop 02/15/17 at 09:34; Status DC Vancomycin HCl (Vancomycin Inj) 1,000 mg STK-MED ONCE .ROUTE Last administered on 02/15/17at 09:50; Start 02/15/17 at 09:33; Stop 02/15/17 at 09:34; Status DC Cefazolin Sodium/ Dextrose 50 ml @ As Directed STK-MED ONCE .ROUTE Last administered on 02/15/17at 09:50; Start 02/15/17 at 09:33; Stop 02/15/17 at 09:34; Status DC Sodium Chloride 1,000 ml @ 0 mls/hr Q0M PRN OTHER For Prime & Rinse Back Last administered on 02/15/17at 15:30; Start 02/15/17 at 09:42 Heparin Sodium (Porcine) (Heparin Inj) 8,000 units UNSCH PRN IV FLUSH WITH DIALYSIS; Start 02/15/17 at 09:45 Sodium Chloride 1,000 ml @ 200 mls/hr Q5H PRN IV WITH DIALYSIS; Start 02/15/17 at 09:42 Sodium Chloride 1,000 ml @ 0 mls/hr Q0M PRN OTHER WITH DIALYSIS; Start 02/15/17 at 09:42 Mannitol (Mannitol Inj) 12.5 gm UNSCH PRN IV WITH DIALYSIS; Start 02/15/17 at 09 :45 Albumin Human 100 ml @ 60 mls/hr UNSCH PRN IV WITH DIALYSIS; Start 02/15/17 at 09:45 Sodium Chloride (NS Flush) 5 ml UNSCH PRN IV FLUSH WITH DIALYSIS; Start at 09:45 Heparin Sodium (Porcine) (Heparin Inj) UNSCH PRN .XX WITH DIALYSIS Last administered on 02/15/17at 15:30; Start 02/15/17 at 09:45 Gentamicin Sulfate (Gentamicin (Dialysis) Inj) 20 mg UNSCH PRN OTHER WITH DIALYSIS Last administered on 02/15/17at 15:30; Start 02/15/17 at 09:45 Ondansetron HCl (Zofran Inj) 4 mg UNSCH PRN IV PUSH WITH DIALYSIS; Start at 09:45 Acetaminophen (Tylenol) 650 mg UNSCH PRN PO for headach, pain, temp > 101F; Start 02/15/17 at 09:45 Diphenhydramine HCl (Benadryl) 25 mg UNSCH PRN PO for hives/itching/anaphylaxis ; Start 02/15/17 at 09:45 Nitroglycerin (Nitrostat Sl) 0.4 mg UNSCH PRN SL CHEST PAIN; Start 02/15/17 at 09:45 Clonidine (Catapres) 0.1 mg UNSCH PRN PO for BP > 180/100 X 2 readings; Start 02/15/17 at 09:45 Gelatin (Gelfoam 12 Mm/7 Mm Top) 1 foam UNSCH PRN TOP SEE LABEL COMMENTS; Start 02/15/17 at 09:45 Heparin Sodium (Porcine) (*HEPARIN INJ Periprocedural ONLY) 10,000 units STK- MED ONCE .ROUTE Last administered on 02/15/17at 10:23; Start 02/15/17 at 09:43; Stop 02/15/17 at 09:44; Status DC Sodium Chloride (NS Flush) UNSCH PRN IV FLUSH SEE PROTOCOL; Start 02/15/17 at 10:45 Heparin Sodium (Porcine) (Heparin Inj) UNSCH PRN IV FLUSH SEE PROTOCOL; Start 02/15/17 at 10:45 Iohexol (Omnipaque 350 Inj) 15 ml STK-MED ONCE OTHER Last administered on at 10:15; Start 02/15/17 at 06:39; Stop 02/15/17 at 10:56; Status DC Amlodipine Besylate (Norvasc) 10 mg DAILY PO Last administered on 02/16/17at 08: 56; Start 02/16/17 at 09:00 Cinacalcet (Sensipar) 30 mg DAILY PO Last administered on 02/17/17at 10:02; Start 02/16/17 at 09:00 Clonidine (Catapres) 0.2 mg BID PO Last administered on 02/16/17at 19:39; Start 02/15/17 at 21:00 Metoprolol Succinate (Toprol Xl) 100 mg DAILY PO Last administered on 02/16/17at 08:56; Start 02/16/17 at 09:00 Ramipril (Altace) 10 mg BID PO Last administered on 02/16/17at 19:40; Start at 21:00 Sevelamer Carbonate (Renvela) 800 mg TID PO ; Start 02/15/17 at 13:00; Stop at 13:00; Status DC Clonidine (Catapres) 0.1 mg Q4H PRN PO SBP>160, DBP>90; Start 02/15/17 at 11:30 Sodium Chloride (NS Flush) 2 ml UNSCH PRN IV FLUSH FLUSH AFTER USING IV ACCESS ; Start 02/15/17 at 11:30 Sodium Chloride (NS Flush) 2 ml BID IV FLUSH Last administered on 02/17/17at 10: 04; Start 02/15/17 at 21:00 Acetaminophen (Tylenol) 650 mg Q4H PRN PO TEMP > 100.4; Start 02/15/17 at 11:30 Temazepam (Restoril) 15 mg HS PRN PO INSOMNIA; Start 02/15/17 at 11:30 Heparin Sodium (Porcine) (Heparin Inj) 5,000 units Q12H SQ Last administered on 02/17/17at 00:32; Start 02/15/17 at 11:30 Acetaminophen (Tylenol) 650 mg Q6H PRN PO PAIN SCALE 1 TO 2; Start 02/15/17 at 11:30 Oxycodone/ Acetaminophen (Percocet 5-325 Mg) 1 tab Q6H PRN PO PAIN SCALE 3 TO 5 Last administered on 02/15/17at 15:44; Start 02/15/17 at 11:30 Oxycodone/ Acetaminophen (Percocet 10-325 Mg) 1 tab Q6H PRN PO PAIN SCALE 6 TO 10 Last administered on 02/17/17at 06:33; Start 02/15/17 at 11:30 Morphine Sulfate (Morphine Inj) 2 mg Q3H PRN IV PUSH Pain 3-5; if unable to take PO; Start 02/15/17 at 11:30 Morphine Sulfate (Morphine Inj) 4 mg Q3H PRN IV PUSH Pain 6-10;if unable to take PO; Start 02/15/17 at 11:30 Naloxone HCl (Narcan Inj) 0.4 mg UNSCH PRN IV PUSH SEE LABEL COMMENTS; Start at 11:30 Senna/Docusate Sodium (Ayse-Colace) 1 tab BID PO Last administered on 02/17/17at 10:04; Start 02/15/17 at 21:00 Magnesium Hydroxide (Milk Of Magnesia Liq) 30 ml Q12H PRN PO Mild constipation ; Start 02/15/17 at 11:30 Sennosides (Senokot) 17.2 mg Q12H PRN PO Moderate constipation; Start 02/15/17 at 11:30 Bisacodyl (Dulcolax Supp) 10 mg DAILY PRN RECTAL SEVERE CONSITIPATION; Start at 11:30 Lactulose (Lactulose Liq) 30 ml DAILY PRN PO SEVERE CONSITIPATION; Start at 11:30 Sevelamer Carbonate (Renvela) 3,200 mg TID PO Last administered on 02/17/17at 10: 04; Start 02/15/17 at 14:00 A/P Assessment and Plan Patient p/w failed AV fistula Occluded aneurysmal L UE AVF. -per vascular surgeon no role for thrombectomy given appearance of what was clearly failing AVF. -s/p catheter -schedule for access excision and then re-evaluate for new AVF after arm heals tomorrow. End-stage renal disease on hemodialysis Saturday -Nephro consulted and ff Hypertension -anti-hypertensive meds held due to hypotension. asymptomatic. continue to monitor. Hyperkalemia - due to end-stage renal disease -asymptomatic. -dialysis as above. Discharge Planning scheduled for OR tomorrow. Myra Mohamud MD Feb 17, 2017 10:18
[2017-02-17 10:37] LABS: BICARBONATE 28.2 MEQ/L (21.0-32.0); CALCIUM 9.2 MG/DL (8.5-10.1)
[2017-02-17 10:40] LABS: CREATININE 16.34 MG/DL (0.60-1.30)
[2017-02-17] MEDS ORDERED: SODIUM CHLORID 0.9% 500 ML IV PRN (12:30)
[2017-02-17] MEDS ORDERED: METOPROLOL TARTRATE 25 MG TAB PO PRN (12:30)
[2017-02-17] MEDS ORDERED: POVIDONE IODINE 5% (ANTISEPSIS KIT) 4 APPLICATIONS EACH NARE PRN (12:30)
[2017-02-17] MEDS ORDERED: CHLORHEXIDINE GLUCONATE 2 % 1 PACK (2 CLOTHS) TOPICAL PRN (12:30)
[2017-02-17] MEDS ORDERED: LACTATED RINGER'S 1000 ML IV PRN (12:30)
[2017-02-17] MEDS ORDERED: SODIUM POLYSTYRENE SULFONATE SUSP 15 GM/60 ML CUP PO ONE (15:15)
--- NOTE | 2017-02-17 15:16 | HHI.NPPN ---
Subjective History of Present Illness 46 year old male with ESRD need AVF revision Objective Data Data Vital Signs Date Time Temp Pulse Resp B/P (MAP) Pulse Ox O2 Delivery O2 Flow Rate FiO2 02/17/17 12:47 80 02/17/17 12:00 96.4 83 21 140/60 (86) 93 02/17/17 09:12 94 21 02/17/17 08:30 80 02/17/17 08:00 96.6 76 19 95/53 (67) 96 02/17/17 04:00 97.0 92 20 126/66 (86) 98 02/17/17 04:00 79 02/17/17 00:23 96.7 92 20 122/70 (87) 96 02/17/17 00:00 73 02/16/17 20:31 98.2 112 20 121/66 (84) 94 02/16/17 20:00 84 02/16/17 17:30 98 21 02/16/17 17:30 96.9 82 18 120/65 (83) 97 -: 02/16/17 0813 02/17/17 0944 Physical Exam General Appearance: Well Developed, Well Nourished Eyes Eye Exam: Pupils Equal Neck Neck Exam: Neck Supple Pulmonary Resp Exam: Clear Bilaterally, Breath Sounds Equal Cardiology CV Exam: Regular, Normal Sinus Rhythm Gastrointestinal/Abdomen GI Exam: Soft, Non-Tender, Bowel Sounds Present Extremeties Extremities Exam: No Edema Assessment/Plan Problem List: (1) ESRD (end stage renal disease) on dialysis ICD Codes: N18.6 - End stage renal disease; Z99.2 - Dependence on renal dialysis Plan: dialysis, yesterday K 5.6 went up give kayexalate BMP in am HD yesterday Resume MWF HD schedule Permcath in place for treatment Avoid IVF, gadolinium is contraindicated Intermittently obtain renal panel Epogen not required for anemia AVF revision Saturday Dr. Oconnor to follow (2) Metabolic bone disease ICD Codes: E88.9 - Metabolic disorder, unspecified; M90.80 - Osteopathy in diseases classified elsewhere, unspecified site Plan: Increase renvela, he takes 3200 mg per meal (3) AVF (arteriovenous fistula) ICD Codes: I77.0 - Arteriovenous fistula, acquired Plan: Vascular is following To have excision and revision or creation on Levar Temporary access obtained this AM (4) HTN (hypertension) ICD Codes: I10 - Essential (primary) hypertension Plan: Home medications were resumed Flash Molina MD Feb 17, 2017 15:16
[2017-02-18 00:24] VITALS: BP 138/84; PULSE 82; RESP 20; TEMP 96.2; O2SAT 97
[2017-02-18 04:00] VITALS: PULSE 69
[2017-02-18 05:23] VITALS: BP 118/58; PULSE 78; RESP 18; TEMP 96.3; O2SAT 97
[2017-02-18 08:00] VITALS: BP 173/89; PULSE 102; PULSE 79; RESP 19; TEMP 96.1; O2SAT 94
[2017-02-18] MEDS: CINACALCET HYDROCHLORIDE 30 MG TAB PO SCH ×2 (08:13→08:16)
[2017-02-18] MEDS: RAMIPRIL 5 MG CAP PO SCH ×2 (08:13→21:02)
[2017-02-18] MEDS: DOCUSATE SODIUM 50 MG/SENNA 8.6 MG TAB PO SCH ×2 (08:13→21:00)
[2017-02-18] MEDS: METOPROLOL SUCCINATE 50 MG EXTENDED RELEASE TAB PO SCH (08:13)
[2017-02-18] MEDS: SODIUM CHLORIDE 0.9% FLUSH 10 ML FLUSH IV FLUSH SCH ×2 (08:14→21:02)
[2017-02-18] MEDS: cloNIDine HCL 0.2 MG TAB PO SCH ×2 (08:14→21:02)
[2017-02-18] MEDS: SEVELAMER CARBONATE 800 MG TAB PO SCH ×3 (08:16→18:00)
--- NOTE | 2017-02-18 10:06 | HHI.PR ---
Subjective Remarks f/u for occluded AVF patient has no complaints. he is schedule for OR today. remains afebrile. Objective Vitals Vital Signs Date Time Temp Pulse Resp B/P (MAP) Pulse Ox O2 Delivery O2 Flow Rate FiO2 02/18/17 08:00 96.1 102 19 173/89 (117) 94 02/18/17 05:23 96.3 78 18 118/58 (78) 97 02/18/17 04:00 69 02/18/17 00:24 96.2 82 20 138/84 (102) 97 02/17/17 23:58 80 02/17/17 20:00 97.2 92 18 154/93 (113) 97 02/17/17 16:00 97.4 81 17 139/73 (95) 95 02/17/17 12:47 80 02/17/17 12:00 96.4 83 21 140/60 (86) 93 I/O 02/17/17 02/17/17 02/17/17 02/18/17 02/18/17 02/18/17 07:00 15:00 23:00 07:00 15:00 23:00 Intake Total 480 ml 575 ml 580 ml Balance 480 ml 575 ml 580 ml Intake Oral 480 ml 575 ml 580 ml # Voids 1 2 1 # Bowel Movements 0 0 1 Result Diagram: 02/16/17 0813 02/17/17 0944 Objective Remarks GENERAL: This is a well-nourished, well-developed patient, in no apparent distress. CARDIOVASCULAR: Regular rate and rhythm without murmurs, gallops, or rubs. S1 and S2 no S3 or S4 no heave or thrill or rub or gallop-- Has right-sided hemodialysis access now RESPIRATORY: Clear to auscultation. Breath sounds equal bilaterally. No wheezes , rales, or rhonchi. GASTROINTESTINAL: Abdomen soft, non-tender, nondistended. No hepato-splenomegaly , or palpable masses. No guarding. Obese MUSCULOSKELETAL: Extremities without clubbing, cyanosis, or edema. No joint tenderness, effusion, or edema noted. No calf tenderness. Negative Homans sign bilaterally. Left upper extremity AV fistula with no thrill or bruit Medications and IVs Current Medications Sodium Chloride (NS Flush) 2 ml UNSCH PRN IV FLUSH FLUSH AFTER USING IV ACCESS ; Start 02/15/17 at 06:45; Stop 02/15/17 at 16:14; Status DC Sodium Chloride (NS Flush) 2 ml BID IV FLUSH Last administered on 02/15/17at 08: 37; Start 02/15/17 at 09:00; Stop 02/15/17 at 16:14; Status DC Acetaminophen (Tylenol) 650 mg Q4H PRN PO TEMP > 100.4; Start 02/15/17 at 06:45 ; Stop 02/15/17 at 16:17; Status DC Ondansetron HCl (Zofran Inj) 4 mg Q6H PRN IVP NAUSEA OR VOMITING; Start at 06:45 Naloxone HCl (Narcan Inj) 0.4 mg UNSCH PRN IV PUSH SEE LABEL COMMENTS; Start at 06:45; Stop 02/15/17 at 16:16; Status DC Senna/Docusate Sodium (Ayse-Colace) 1 tab BID PO ; Start 02/15/17 at 09:00; Stop 02/15/17 at 16:15; Status DC Magnesium Hydroxide (Milk Of Magnesia Liq) 30 ml Q12H PRN PO Mild constipation ; Start 02/15/17 at 06:45; Stop 02/15/17 at 16:15; Status DC Sennosides (Senokot) 17.2 mg Q12H PRN PO Moderate constipation; Start 02/15/17 at 06:45; Stop 02/15/17 at 16:15; Status DC Bisacodyl (Dulcolax Supp) 10 mg DAILY PRN RECTAL SEVERE CONSITIPATION/ IF NPO; Start 02/15/17 at 06:45; Stop 02/15/17 at 16:16; Status DC Lactulose (Lactulose Liq) 30 ml DAILY PRN PO SEVERE CONSITIPATION/ IF PO; Start 02/15/17 at 06:45; Stop 02/15/17 at 16:15; Status DC Midazolam HCl (Versed Inj) 4 mg STK-MED ONCE .ROUTE Last administered on at 10:00; Start 02/15/17 at 09:32; Stop 02/15/17 at 09:33; Status DC Fentanyl Citrate (fentaNYL INJ) 250 mcg STK-MED ONCE .ROUTE Last administered on 02/15/17at 10:00; Start 02/15/17 at 09:33; Stop 02/15/17 at 09:34; Status DC Vancomycin HCl (Vancomycin Inj) 1,000 mg STK-MED ONCE .ROUTE Last administered on 02/15/17at 09:50; Start 02/15/17 at 09:33; Stop 02/15/17 at 09:34; Status DC Cefazolin Sodium/ Dextrose 50 ml @ As Directed STK-MED ONCE .ROUTE Last administered on 02/15/17at 09:50; Start 02/15/17 at 09:33; Stop 02/15/17 at 09:34; Status DC Sodium Chloride 1,000 ml @ 0 mls/hr Q0M PRN OTHER For Prime & Rinse Back Last administered on 02/15/17at 15:30; Start 02/15/17 at 09:42 Heparin Sodium (Porcine) (Heparin Inj) 8,000 units UNSCH PRN IV FLUSH WITH DIALYSIS; Start 02/15/17 at 09:45 Sodium Chloride 1,000 ml @ 200 mls/hr Q5H PRN IV WITH DIALYSIS; Start 02/15/17 at 09:42 Sodium Chloride 1,000 ml @ 0 mls/hr Q0M PRN OTHER WITH DIALYSIS; Start 02/15/17 at 09:42 Mannitol (Mannitol Inj) 12.5 gm UNSCH PRN IV WITH DIALYSIS; Start 02/15/17 at 09 :45 Albumin Human 100 ml @ 60 mls/hr UNSCH PRN IV WITH DIALYSIS; Start 02/15/17 at 09:45 Sodium Chloride (NS Flush) 5 ml UNSCH PRN IV FLUSH WITH DIALYSIS; Start at 09:45 Heparin Sodium (Porcine) (Heparin Inj) UNSCH PRN .XX WITH DIALYSIS Last administered on 02/15/17at 15:30; Start 02/15/17 at 09:45 Gentamicin Sulfate (Gentamicin (Dialysis) Inj) 20 mg UNSCH PRN OTHER WITH DIALYSIS Last administered on 02/15/17at 15:30; Start 02/15/17 at 09:45 Ondansetron HCl (Zofran Inj) 4 mg UNSCH PRN IV PUSH WITH DIALYSIS; Start at 09:45 Acetaminophen (Tylenol) 650 mg UNSCH PRN PO for headach, pain, temp > 101F; Start 02/15/17 at 09:45 Diphenhydramine HCl (Benadryl) 25 mg UNSCH PRN PO for hives/itching/anaphylaxis ; Start 02/15/17 at 09:45 Nitroglycerin (Nitrostat Sl) 0.4 mg UNSCH PRN SL CHEST PAIN; Start 02/15/17 at 09:45 Clonidine (Catapres) 0.1 mg UNSCH PRN PO for BP > 180/100 X 2 readings; Start 02/15/17 at 09:45 Gelatin (Gelfoam 12 Mm/7 Mm Top) 1 foam UNSCH PRN TOP SEE LABEL COMMENTS; Start 02/15/17 at 09:45 Heparin Sodium (Porcine) (*HEPARIN INJ Periprocedural ONLY) 10,000 units STK- MED ONCE .ROUTE Last administered on 02/15/17at 10:23; Start 02/15/17 at 09:43; Stop 02/15/17 at 09:44; Status DC Sodium Chloride (NS Flush) UNSCH PRN IV FLUSH SEE PROTOCOL; Start 02/15/17 at 10:45 Heparin Sodium (Porcine) (Heparin Inj) UNSCH PRN IV FLUSH SEE PROTOCOL; Start 02/15/17 at 10:45 Iohexol (Omnipaque 350 Inj) 15 ml STK-MED ONCE OTHER Last administered on at 10:15; Start 02/15/17 at 06:39; Stop 02/15/17 at 10:56; Status DC Amlodipine Besylate (Norvasc) 10 mg DAILY PO Last administered on 02/18/17at 08: 14; Start 02/16/17 at 09:00 Cinacalcet (Sensipar) 30 mg DAILY PO Last administered on 02/17/17at 10:02; Start 02/16/17 at 09:00 Clonidine (Catapres) 0.2 mg BID PO Last administered on 02/18/17at 08:14; Start 02/15/17 at 21:00 Metoprolol Succinate (Toprol Xl) 100 mg DAILY PO Last administered on 02/18/17at 08:13; Start 02/16/17 at 09:00 Ramipril (Altace) 10 mg BID PO Last administered on 02/18/17at 08:13; Start at 21:00 Sevelamer Carbonate (Renvela) 800 mg TID PO ; Start 02/15/17 at 13:00; Stop at 13:00; Status DC Clonidine (Catapres) 0.1 mg Q4H PRN PO SBP>160, DBP>90; Start 02/15/17 at 11:30 Sodium Chloride (NS Flush) 2 ml UNSCH PRN IV FLUSH FLUSH AFTER USING IV ACCESS ; Start 02/15/17 at 11:30 Sodium Chloride (NS Flush) 2 ml BID IV FLUSH Last administered on 02/18/17at 08: 14; Start 02/15/17 at 21:00 Acetaminophen (Tylenol) 650 mg Q4H PRN PO TEMP > 100.4; Start 02/15/17 at 11:30 Temazepam (Restoril) 15 mg HS PRN PO INSOMNIA; Start 02/15/17 at 11:30 Heparin Sodium (Porcine) (Heparin Inj) 5,000 units Q12H SQ Last administered on 02/17/17at 23:20; Start 02/15/17 at 11:30 Acetaminophen (Tylenol) 650 mg Q6H PRN PO PAIN SCALE 1 TO 2; Start 02/15/17 at 11:30 Oxycodone/ Acetaminophen (Percocet 5-325 Mg) 1 tab Q6H PRN PO PAIN SCALE 3 TO 5 Last administered on 02/15/17at 15:44; Start 02/15/17 at 11:30 Oxycodone/ Acetaminophen (Percocet 10-325 Mg) 1 tab Q6H PRN PO PAIN SCALE 6 TO 10 Last administered on 02/17/17at 20:01; Start 02/15/17 at 11:30 Morphine Sulfate (Morphine Inj) 2 mg Q3H PRN IV PUSH Pain 3-5; if unable to take PO; Start 02/15/17 at 11:30 Morphine Sulfate (Morphine Inj) 4 mg Q3H PRN IV PUSH Pain 6-10;if unable to take PO; Start 02/15/17 at 11:30 Naloxone HCl (Narcan Inj) 0.4 mg UNSCH PRN IV PUSH SEE LABEL COMMENTS; Start at 11:30 Senna/Docusate Sodium (Ayse-Colace) 1 tab BID PO Last administered on 02/18/17at 08:13; Start 02/15/17 at 21:00 Magnesium Hydroxide (Milk Of Magnesia Liq) 30 ml Q12H PRN PO Mild constipation ; Start 02/15/17 at 11:30 Sennosides (Senokot) 17.2 mg Q12H PRN PO Moderate constipation; Start 02/15/17 at 11:30 Bisacodyl (Dulcolax Supp) 10 mg DAILY PRN RECTAL SEVERE CONSITIPATION; Start at 11:30 Lactulose (Lactulose Liq) 30 ml DAILY PRN PO SEVERE CONSITIPATION; Start at 11:30 Sevelamer Carbonate (Renvela) 3,200 mg TID PO Last administered on 02/17/17at 17: 27; Start 02/15/17 at 14:00 Lactated Ringer's 1,000 ml @ 30 mls/hr Q24H PRN IV SEE LABEL COMMENTS; Start at 12:30; Stop 02/20/17 at 12:29 Sodium Chloride 500 ml @ 30 mls/hr [id number] PRN IV SEE LABEL COMMENTS Last administered on 02/18/17at 08:58; Start 02/17/17 at 12:30; Stop 02/20/17 at 12:29 Metoprolol Tartrate (Lopressor) 25 mg SUBSTANCE ADDICTION COORDINATOR PRN PO SEE LABEL COMMENTS; Start 02/17/17 at 12:30; Stop 02/20/17 at 12:29 Povidone Iodine (Betadine 5% Antisepsis Kit) 1 applic SUBSTANCE ADDICTION COORDINATOR PRN EACH NARE SEE LABEL COMMENTS; Start 02/17/17 at 12:30; Stop 02/20/17 at 12:29 Chlorhexidine Gluconate (Chlorhexidine 2% Cloth) 3 pack SUBSTANCE ADDICTION COORDINATOR PRN TOPICAL SEE LABEL COMMENTS; Start 02/17/17 at 12:30; Stop 02/20/17 at 12:29 Sodium Polystyrene Sulfonate (Kayexalate Liq) 30 gm ONCE ONCE PO Last administered on 02/17/17at 16:14; Start 02/17/17 at 15:15; Stop 02/17/17 at 15:21; Status DC A/P Assessment and Plan Patient p/w failed AV fistula Occluded aneurysmal L UE AVF. -per vascular surgeon no role for thrombectomy given appearance of what was clearly failing AVF. -s/p catheter -schedule for access excision and then re-evaluate for new AVF after arm heals tomorrow. End-stage renal disease on hemodialysis Saturday -Nephro consulted and ff Hypertension -anti-hypertensive meds held due to hypotension. asymptomatic. continue to monitor. Hyperkalemia - due to end-stage renal disease -asymptomatic. -dialysis as above. Discharge Planning scheduled for OR today. Myra Mohamud MD Feb 18, 2017 10:05
[2017-02-18 10:15] LABS: BICARBONATE 25.7 MEQ/L (21.0-32.0); CALCIUM 9.4 MG/DL (8.5-10.1)
[2017-02-18 10:31] LABS: CREATININE 18.77 MG/DL (0.60-1.30)
[2017-02-18] MEDS: HEPARIN SODIUM - SQ 10,000 UNITS/ML VIAL SQ SCH ×2 (11:16→22:18)
[2017-02-18] MEDS ORDERED: GLYCOPYRROLATE 1 MG/5 ML SYRINGE IV PUSH ONE (12:00)
[2017-02-18] MEDS ORDERED: NS 500 ML (EXCEL BAG) INJ 500 ML IV ONE (12:00)
[2017-02-18] MEDS ORDERED: ONDANSETRON HCL 4 MG/2 ML VIAL IV ONE (12:00)
[2017-02-18] MEDS ORDERED: NEOSTIGMINE 5 MG/5 ML SYRINGE IV PUSH ONE (12:00)
[2017-02-18] MEDS ORDERED: PHENYLEPH/NS 1000 MCG/10 ML SYR IV ONE (12:00)
[2017-02-18] MEDS ORDERED: PROPOFOL 200 MG/20 ML AMP IV ONE (12:00)
[2017-02-18] MEDS ORDERED: ROCURONIUM INJ 50 MG/5 ML VIAL IV ONE (12:00)
[2017-02-18] MEDS ORDERED: LIDOCAINE HCL 1% PF 5 ML SYRINGE OTHER ONE (12:00)
[2017-02-18] MEDS ORDERED: PROTAMINE SULFATE 50 MG/5 ML VIAL ONE (13:55)
[2017-02-18] MEDS ORDERED: HEPARIN SODIUM - IV 10,000 UNITS/10 ML VIAL ONE ×2 (13:55→13:57)
[2017-02-18] MEDS ORDERED: HEPARIN-NS/PF INJ 500 ML ONE (13:56)
[2017-02-18] MEDS ORDERED: THROMBIN (TOPICAL) 20,000 UNIT SPRAY KIT ONE (13:56)
[2017-02-18] MEDS ORDERED: BUPIVACAINE HCL PF 0.5% 30 ML VIAL ONE (14:05)
[2017-02-18] MEDS ORDERED: VANCOMYCIN HCL 1000 MG VIAL ONE (14:06)
[2017-02-18] MEDS ORDERED: SODIUM CHLOR 0.9% 250 ML INJ 250 ML ONE (14:06)
--- NOTE | 2017-02-18 15:27 | HHI.PR ---
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
[2017-02-18] MEDS ORDERED: MORPHINE SULFATE 2 MG/ML INJ IV PUSH PRN (15:45)
[2017-02-18] MEDS ORDERED: DO NOT ADM ANY ANTICOAGULANT DRUGS PRN (16:32)
[2017-02-18 20:00] VITALS: BP 142/81; PULSE 88; RESP 18; TEMP 96.2; O2SAT 92
[2017-02-18] MEDS: HYDROmorphone HCL 2 MG TAB PO PRN (21:01)
[2017-02-19] VITALS (11 sets, daily range): BP systolic 115–145; BP diastolic 59–84; PULSE 76–94; RESP 18–20; TEMP 96–98.1; O2SAT 91–98
[2017-02-19] MEDS: HYDROmorphone HCL 2 MG TAB PO PRN ×5 (03:52→21:30)
--- NOTE | 2017-02-19 07:16 | MP ---
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 PROCEDURE Left upper extremity access excision MEDICATIONS Adiel Nunez MD [employer] MACHINE FEEDER SURGEON Piter Campbell ANESTHESIA General INDICATION Mr. Rubio is a 46-year gentleman with end-stage renal disease. He has a left upper extremity arteriovenous fistula that has been surgically repaired several times. He presented to the emergency department where I met him and he has a thrombosed left upper extremity A-V fistula that is causing him pain. This access needs to be excised. DESCRIPTION OF THE PROCEDURE Informed consent was obtained from the patient. He was taken to the operating room and placed supine on the operating room table and an appropriate time-out was taken to ensure the patient's identity, operative site and planned procedure. A gram of vancomycin was initiated prior to the skin incision and will be discontinued after a single preoperative dose. Vancomycin was chosen because of the patient's end-stage renal disease. Everyone in the room agreed with the time-out and we proceeded. His left arm was prepped and draped. An incision made over the course of fistula, carried down to the subcutaneous tissue with electrocautery. The entire fistula was noted to be quite edematous but thrombosed. It was encircled with a Vesseloop proximally and then dissected free all the way near the deltopectoral groove. The fistula was clamped proximally and distally with right-angle clamps. The fistula was excised by cutting the fistula proximal and distal to the right angle respectively and then excising the fistula with electrocautery. The proximal and distal ends were oversewn with 4-0 Prolene suture in a running fashion. The clamps were released. There was a nice multiphasic Doppler signal in the wrist. The entire wound was made hemostatic with topical hemostatic agents as well as electrocautery and the wound was closed with 2-0 Polysorb, 3-0 Polysorb and skin deanna. The sponge and needle counts were correct at the end of the case. I was present, scrubbed and performed the entire procedure. MD NIK Arreaga/CHELO /3:18 PM /6:56 AM
--- NOTE | 2017-02-19 07:21 | PD.VS.PN ---
Subjective POD #: 1 Procedure(s): L UE access excision Subjective/Hospital Course pain controlled hand slightly numb but no motor dysfunction resting comfortably this morning Objective Vitals/I&O Date Time Temp Pulse Resp B/P (MAP) Pulse Ox O2 Delivery O2 Flow Rate FiO2 02/19/17 06:13 94 Nasal Cannula 2.00 02/19/17 04:00 96.5 80 20 134/73 (93) 94 02/19/17 00:08 87 02/19/17 00:00 96.5 76 18 134/65 (88) 94 02/18/17 20:00 96.2 88 18 142/81 (101) 92 02/18/17 17:15 65 12 133/83 (100) 100 Nasal Cannula 2 02/18/17 17:00 97.4 69 20 128/84 (99) 100 Nasal Cannula 2 02/18/17 16:45 73 21 135/85 (102) 99 Nasal Cannula 3 02/18/17 16:33 97.4 82 17 138/66 (90) 98 Nasal Cannula 3 02/18/17 08:00 79 02/18/17 08:00 96.1 102 19 173/89 (117) 94 02/19/17 02/19/17 02/19/17 07:00 15:00 23:00 Intake Total 360 ml Output Total 0 ml Balance 360 ml Exam: L UE dressing intact good hand strength palpable radial pulse Laboratory Laboratory Tests Test 02/18/17 09:35 Blood Urea Nitrogen 52 Creatinine 18.77 Random Glucose 75 Calcium Level 9.4 Sodium Level 136 Potassium Level 5.3 Chloride Level 100 Carbon Dioxide Level 25.7 Anion Gap 10 Estimat Glomerular Filtration Rate 3 Assessment and Plan Plan POD#1 s/p L UE access excision 1. f/u AML 2. Take dressing down tomorrow (POD#2) 3. Normalize 4. PT/OT Genaro Nunez MD FACS RPVI .net programmer [facility] - Heart and Vascular Surgery at [facility] [address] [phone] Discharge Planning likely tomorrow (POD#2) Genaro Nunez MD Feb 19, 2017 07:21
[2017-02-19 07:41] LABS: HEMATOCRIT 28.1 % (39.0-51.0); HEMOGLOBIN 9.6 GM/DL (13.0-17.0); MEAN CELL VOLUME 95.4 FL (80.0-100.0); MEAN CORPUSCULAR HEMOGLOBIN 32.6 PG (27.0-34.0); MEAN CORPUSCULAR HGB CONC 34.2 % (32.0-36.0); MEAN PLATELET VOLUME 9.4 FL (7.0-11.0); PLATELET COUNT 170 TH/MM3 (150-450); RED BLOOD COUNT 2.94 MIL/MM3 (4.50-5.90); RED CELL DISTRIBUTION WIDTH 14.8 % (11.6-17.2); WHITE BLOOD COUNT 4.1 TH/MM3 (4.0-11.0)
[2017-02-19 08:08] LABS: BICARBONATE 29.1 MEQ/L (21.0-32.0)
[2017-02-19 08:12] LABS: CREATININE 15.28 MG/DL (0.60-1.30)
[2017-02-19] MEDS: CINACALCET HYDROCHLORIDE 30 MG TAB PO SCH (08:54)
[2017-02-19] MEDS: METOPROLOL SUCCINATE 50 MG EXTENDED RELEASE TAB PO SCH (08:54)
[2017-02-19] MEDS: DOCUSATE SODIUM 50 MG/SENNA 8.6 MG TAB PO SCH ×2 (08:55→20:35)
[2017-02-19] MEDS: SEVELAMER CARBONATE 800 MG TAB PO SCH ×3 (08:55→17:34)
[2017-02-19] MEDS: cloNIDine HCL 0.2 MG TAB PO SCH ×2 (08:55→20:35)
[2017-02-19] MEDS: RAMIPRIL 5 MG CAP PO SCH ×2 (08:55→20:35)
[2017-02-19] MEDS: SODIUM CHLORIDE 0.9% FLUSH 10 ML FLUSH IV FLUSH SCH ×2 (08:55→20:34)
--- NOTE | 2017-02-19 10:34 | HHI.NPPN ---
Subjective General Problems: Anemia Renal Failure: Chronic, End Stage Renal Disease Interval History Successful AVF excision yesterday. Had dialysis. Potential discharge tomorrow. (Pilar Bravo) Review of Systems Musculoskeletal MS: Pain/Stiffness (Pilar Bravo) Objective Data Data Vital Signs Date Time Temp Pulse Resp B/P (MAP) Pulse Ox O2 Delivery O2 Flow Rate FiO2 02/19/17 08:58 98 Nasal Cannula 2.00 02/19/17 08:00 97.0 94 18 137/63 (87) 98 02/19/17 06:13 94 Nasal Cannula 2.00 02/19/17 04:00 96.5 80 20 134/73 (93) 94 02/19/17 00:08 87 02/19/17 00:00 96.5 76 18 134/65 (88) 94 02/18/17 20:00 96.2 88 18 142/81 (101) 92 02/18/17 17:15 65 12 133/83 (100) 100 Nasal Cannula 2 02/18/17 17:00 97.4 69 20 128/84 (99) 100 Nasal Cannula 2 02/18/17 16:45 73 21 135/85 (102) 99 Nasal Cannula 3 02/18/17 16:33 97.4 82 17 138/66 (90) 98 Nasal Cannula 3 (Pilar Bravo) -: 02/19/17 0655 02/19/17 0655 Tubes & Lines: Perma-Cath (Pilar Bravo) Physical Exam General Appearance: Well Developed, Well Nourished, Comfortable (Pilar Bravo) Eyes Eye Exam: Pupils Equal (Pilar Bravo) Neck Neck Exam: Neck Supple (Pilar Bravo) Pulmonary Resp Exam: Clear Bilaterally, Breath Sounds Equal, No Distress (Pilar Bravo) Cardiology CV Exam: Regular, Normal Sinus Rhythm (Pilar Bravo) Gastrointestinal/Abdomen GI Exam: Soft, Non-Tender, Bowel Sounds Present (Pilar Bravo) Musculoskeletal MS Exam: Normal Tone, Good Strength (Pilar Bravo) Integumentary Skin Exam: Warm, Dry Skin Remarks Left arm wrapped. Distal pulses strong (Pilar Bravo) Extremeties Extremities Exam: No Edema (Pilar Bravo) Assessment/Plan Discussed Condition With: Patient, Relative Assessment Summary: Anemia of CKD, Hypertension, End Stage Renal Disease Problem List: (1) ESRD (end stage renal disease) on dialysis ICD Codes: N18.6 - End stage renal disease; Z99.2 - Dependence on renal dialysis Plan: MWF HD, 3L UF yesterday Permcath in place for treatment Avoid IVF, gadolinium is contraindicated Intermittently obtain renal panel Start epogen for anemia High protein diet (2) AVF (arteriovenous fistula) ICD Codes: I77.0 - Arteriovenous fistula, acquired Plan: Vascular is following S/P excision will need new access created in future (3) Metabolic bone disease ICD Codes: E88.9 - Metabolic disorder, unspecified; M90.80 - Osteopathy in diseases classified elsewhere, unspecified site Plan: On high dose renvela, phosphorus level elevated (4) HTN (hypertension) ICD Codes: I10 - Essential (primary) hypertension Plan: Continue Home medications (Pilar Bravo) Problem List: (1) ESRD (end stage renal disease) on dialysis ICD Codes: N18.6 - End stage renal disease; Z99.2 - Dependence on renal dialysis Plan: MWF HD, 3L UF yesterday Permcath in place for treatment Avoid IVF, gadolinium is contraindicated Intermittently obtain renal panel Start epogen for anemia High protein diet (2) AVF (arteriovenous fistula) ICD Codes: I77.0 - Arteriovenous fistula, acquired Plan: Vascular is following S/P excision will need new access created in future (3) Metabolic bone disease ICD Codes: E88.9 - Metabolic disorder, unspecified; M90.80 - Osteopathy in diseases classified elsewhere, unspecified site Plan: On high dose renvela, phosphorus level elevated (4) HTN (hypertension) ICD Codes: I10 - Essential (primary) hypertension Plan: Continue Home medications Plan patient was seen and examined. Agree with above assessment and plan. S/p excision of AV access. Dialysis tomorrow. Possible discharge tomorrow. (Johann Oconnor MD) Pilar Bravo Feb 19, 2017 10:34 Johann Oconnor MD Feb 19, 2017 12:19
--- NOTE | 2017-02-19 11:36 | HHI.PR ---
Subjective Remarks Follow-up for L UE access excision Patient has no complaints. He remains afebrile. He is asking about why he is on a diabetic diet. Patient also lost his IV access but is not on any IV medication asking if okay to keep IV out since he has been stuck multiple times. Discussed case with patient's nurse. Objective Vitals Vital Signs Date Time Temp Pulse Resp B/P (MAP) Pulse Ox O2 Delivery O2 Flow Rate FiO2 02/19/17 08:58 98 Nasal Cannula 2.00 02/19/17 08:55 90 02/19/17 08:00 97.0 94 18 137/63 (87) 98 02/19/17 06:13 94 Nasal Cannula 2.00 02/19/17 04:00 96.5 80 20 134/73 (93) 94 02/19/17 00:08 87 02/19/17 00:00 96.5 76 18 134/65 (88) 94 02/18/17 20:00 96.2 88 18 142/81 (101) 92 02/18/17 17:15 65 12 133/83 (100) 100 Nasal Cannula 2 02/18/17 17:00 97.4 69 20 128/84 (99) 100 Nasal Cannula 2 02/18/17 16:45 73 21 135/85 (102) 99 Nasal Cannula 3 02/18/17 16:33 97.4 82 17 138/66 (90) 98 Nasal Cannula 3 I/O 02/18/17 02/18/17 02/18/17 02/19/17 02/19/17 02/19/17 06:59 14:59 22:59 06:59 14:59 22:59 Intake Total 580 ml 600 ml 360 ml Output Total 3200 ml 0 ml Balance 580 ml -2600 ml 360 ml Intake Oral 580 ml 0 ml 360 ml Other 600 ml Output Urine Total 0 ml Hemodialysis 3000 ml Estimated Blood Loss 200 ml # Voids 1 2 # Bowel Movements 1 Result Diagram: 02/19/1765402/19/17654 Objective Remarks GENERAL: This is a well-nourished, well-developed patient, in no apparent distress. Left arm: Dressing in place. Able to move his fingers and arm. Sensation intact. CARDIOVASCULAR: Regular rate and rhythm without murmurs, gallops, or rubs. S1 and S2 no S3 or S4 no heave or thrill or rub or gallop-- Has right-sided hemodialysis access now RESPIRATORY: Clear to auscultation. Breath sounds equal bilaterally. No wheezes , rales, or rhonchi. GASTROINTESTINAL: Abdomen soft, non-tender, nondistended. No hepato-splenomegaly , or palpable masses. No guarding. Obese Medications and IVs Current Medications Sodium Chloride (NS Flush) 2 ml UNSCH PRN IV FLUSH FLUSH AFTER USING IV ACCESS ; Start 02/15/17 at 06:45; Stop 02/15/17 at 16:14; Status DC Sodium Chloride (NS Flush) 2 ml BID IV FLUSH Last administered on 02/15/17at 08: 37; Start 02/15/17 at 09:00; Stop 02/15/17 at 16:14; Status DC Acetaminophen (Tylenol) 650 mg Q4H PRN PO TEMP > 100.4; Start 02/15/17 at 06:45 ; Stop 02/15/17 at 16:17; Status DC Ondansetron HCl (Zofran Inj) 4 mg Q6H PRN IVP NAUSEA OR VOMITING; Start at 06:45 Naloxone HCl (Narcan Inj) 0.4 mg UNSCH PRN IV PUSH SEE LABEL COMMENTS; Start at 06:45; Stop 02/15/17 at 16:16; Status DC Senna/Docusate Sodium (Ayse-Colace) 1 tab BID PO ; Start 02/15/17 at 09:00; Stop 02/15/17 at 16:15; Status DC Magnesium Hydroxide (Milk Of Magnesia Liq) 30 ml Q12H PRN PO Mild constipation ; Start 02/15/17 at 06:45; Stop 02/15/17 at 16:15; Status DC Sennosides (Senokot) 17.2 mg Q12H PRN PO Moderate constipation; Start 02/15/17 at 06:45; Stop 02/15/17 at 16:15; Status DC Bisacodyl (Dulcolax Supp) 10 mg DAILY PRN RECTAL SEVERE CONSITIPATION/ IF NPO; Start 02/15/17 at 06:45; Stop 02/15/17 at 16:16; Status DC Lactulose (Lactulose Liq) 30 ml DAILY PRN PO SEVERE CONSITIPATION/ IF PO; Start 02/15/17 at 06:45; Stop 02/15/17 at 16:15; Status DC Midazolam HCl (Versed Inj) 4 mg STK-MED ONCE .ROUTE Last administered on at 10:00; Start 02/15/17 at 09:32; Stop 02/15/17 at 09:33; Status DC Fentanyl Citrate (fentaNYL INJ) 250 mcg STK-MED ONCE .ROUTE Last administered on 02/15/17at 10:00; Start 02/15/17 at 09:33; Stop 02/15/17 at 09:34; Status DC Vancomycin HCl (Vancomycin Inj) 1,000 mg STK-MED ONCE .ROUTE Last administered on 02/15/17at 09:50; Start 02/15/17 at 09:33; Stop 02/15/17 at 09:34; Status DC Cefazolin Sodium/ Dextrose 50 ml @ As Directed STK-MED ONCE .ROUTE Last administered on 02/15/17at 09:50; Start 02/15/17 at 09:33; Stop 02/15/17 at 09:34; Status DC Sodium Chloride 1,000 ml @ 0 mls/hr Q0M PRN OTHER For Prime & Rinse Back Last administered on 02/15/17at 15:30; Start 02/15/17 at 09:42 Heparin Sodium (Porcine) (Heparin Inj) 8,000 units UNSCH PRN IV FLUSH WITH DIALYSIS; Start 02/15/17 at 09:45 Sodium Chloride 1,000 ml @ 200 mls/hr Q5H PRN IV WITH DIALYSIS; Start 02/15/17 at 09:42 Sodium Chloride 1,000 ml @ 0 mls/hr Q0M PRN OTHER WITH DIALYSIS; Start 02/15/17 at 09:42 Mannitol (Mannitol Inj) 12.5 gm UNSCH PRN IV WITH DIALYSIS; Start 02/15/17 at 09 :45 Albumin Human 100 ml @ 60 mls/hr UNSCH PRN IV WITH DIALYSIS; Start 02/15/17 at 09:45 Sodium Chloride (NS Flush) 5 ml UNSCH PRN IV FLUSH WITH DIALYSIS; Start at 09:45 Heparin Sodium (Porcine) (Heparin Inj) UNSCH PRN .XX WITH DIALYSIS Last administered on 02/15/17at 15:30; Start 02/15/17 at 09:45 Gentamicin Sulfate (Gentamicin (Dialysis) Inj) 20 mg UNSCH PRN OTHER WITH DIALYSIS Last administered on 02/15/17at 15:30; Start 02/15/17 at 09:45 Ondansetron HCl (Zofran Inj) 4 mg UNSCH PRN IV PUSH WITH DIALYSIS; Start at 09:45 Acetaminophen (Tylenol) 650 mg UNSCH PRN PO for headach, pain, temp > 101F; Start 02/15/17 at 09:45 Diphenhydramine HCl (Benadryl) 25 mg UNSCH PRN PO for hives/itching/anaphylaxis ; Start 02/15/17 at 09:45 Nitroglycerin (Nitrostat Sl) 0.4 mg UNSCH PRN SL CHEST PAIN; Start 02/15/17 at 09:45 Clonidine (Catapres) 0.1 mg UNSCH PRN PO for BP > 180/100 X 2 readings; Start 02/15/17 at 09:45 Gelatin (Gelfoam 12 Mm/7 Mm Top) 1 foam UNSCH PRN TOP SEE LABEL COMMENTS; Start 02/15/17 at 09:45 Heparin Sodium (Porcine) (*HEPARIN INJ Periprocedural ONLY) 10,000 units STK- MED ONCE .ROUTE Last administered on 02/15/17at 10:23; Start 02/15/17 at 09:43; Stop 02/15/17 at 09:44; Status DC Sodium Chloride (NS Flush) UNSCH PRN IV FLUSH SEE PROTOCOL; Start 02/15/17 at 10:45 Heparin Sodium (Porcine) (Heparin Inj) UNSCH PRN IV FLUSH SEE PROTOCOL; Start 02/15/17 at 10:45 Iohexol (Omnipaque 350 Inj) 15 ml STK-MED ONCE OTHER Last administered on at 10:15; Start 02/15/17 at 06:39; Stop 02/15/17 at 10:56; Status DC Amlodipine Besylate (Norvasc) 10 mg DAILY PO Last administered on 02/19/17at 08: 55; Start 02/16/17 at 09:00 Cinacalcet (Sensipar) 30 mg DAILY PO Last administered on 02/19/17at 08:54; Start 02/16/17 at 09:00 Clonidine (Catapres) 0.2 mg BID PO Last administered on 02/19/17at 08:55; Start 02/15/17 at 21:00 Metoprolol Succinate (Toprol Xl) 100 mg DAILY PO Last administered on 02/19/17at 08:54; Start 02/16/17 at 09:00 Ramipril (Altace) 10 mg BID PO Last administered on 02/19/17at 08:55; Start at 21:00 Sevelamer Carbonate (Renvela) 800 mg TID PO ; Start 02/15/17 at 13:00; Stop at 13:00; Status DC Clonidine (Catapres) 0.1 mg Q4H PRN PO SBP>160, DBP>90; Start 02/15/17 at 11:30 Sodium Chloride (NS Flush) 2 ml UNSCH PRN IV FLUSH FLUSH AFTER USING IV ACCESS ; Start 02/15/17 at 11:30 Sodium Chloride (NS Flush) 2 ml BID IV FLUSH Last administered on 02/19/17at 08: 55; Start 02/15/17 at 21:00 Acetaminophen (Tylenol) 650 mg Q4H PRN PO TEMP > 100.4; Start 02/15/17 at 11:30 Temazepam (Restoril) 15 mg HS PRN PO INSOMNIA; Start 02/15/17 at 11:30 Heparin Sodium (Porcine) (Heparin Inj) 5,000 units Q12H SQ Last administered on 02/17/17at 23:20; Start 02/15/17 at 11:30 Acetaminophen (Tylenol) 650 mg Q6H PRN PO PAIN SCALE 1 TO 2; Start 02/15/17 at 11:30 Oxycodone/ Acetaminophen (Percocet 5-325 Mg) 1 tab Q6H PRN PO PAIN SCALE 3 TO 5 Last administered on 02/15/17at 15:44; Start 02/15/17 at 11:30 Oxycodone/ Acetaminophen (Percocet 10-325 Mg) 1 tab Q6H PRN PO PAIN SCALE 6 TO 10 Last administered on 02/17/17at 20:01; Start 02/15/17 at 11:30 Morphine Sulfate (Morphine Inj) 2 mg Q3H PRN IV PUSH Pain 3-5; if unable to take PO; Start 02/15/17 at 11:30 Morphine Sulfate (Morphine Inj) 4 mg Q3H PRN IV PUSH Pain 6-10;if unable to take PO; Start 02/15/17 at 11:30 Naloxone HCl (Narcan Inj) 0.4 mg UNSCH PRN IV PUSH SEE LABEL COMMENTS; Start at 11:30 Senna/Docusate Sodium (Ayse-Colace) 1 tab BID PO Last administered on 02/19/17at 08:55; Start 02/15/17 at 21:00 Magnesium Hydroxide (Milk Of Magnesia Liq) 30 ml Q12H PRN PO Mild constipation ; Start 02/15/17 at 11:30 Sennosides (Senokot) 17.2 mg Q12H PRN PO Moderate constipation; Start 02/15/17 at 11:30 Bisacodyl (Dulcolax Supp) 10 mg DAILY PRN RECTAL SEVERE CONSITIPATION; Start at 11:30 Lactulose (Lactulose Liq) 30 ml DAILY PRN PO SEVERE CONSITIPATION; Start at 11:30 Sevelamer Carbonate (Renvela) 3,200 mg TID PO Last administered on 02/19/17at 08: 55; Start 02/15/17 at 14:00 Lactated Ringer's 1,000 ml @ 30 mls/hr Q24H PRN IV SEE LABEL COMMENTS; Start at 12:30; Stop 02/20/17 at 12:29 Sodium Chloride 500 ml @ 30 mls/hr [id number] PRN IV SEE LABEL COMMENTS Last administered on 02/18/17at 08:58; Start 02/17/17 at 12:30; Stop 02/20/17 at 12:29 Metoprolol Tartrate (Lopressor) 25 mg CEO AND PRESIDENT PRN PO SEE LABEL COMMENTS; Start 02/17/17 at 12:30; Stop 02/20/17 at 12:29 Povidone Iodine (Betadine 5% Antisepsis Kit) 1 applic CEO AND PRESIDENT PRN EACH NARE SEE LABEL COMMENTS; Start 02/17/17 at 12:30; Stop 02/20/17 at 12:29 Chlorhexidine Gluconate (Chlorhexidine 2% Cloth) 3 pack CEO AND PRESIDENT PRN TOPICAL SEE LABEL COMMENTS; Start 02/17/17 at 12:30; Stop 02/20/17 at 12:29 Sodium Polystyrene Sulfonate (Kayexalate Liq) 30 gm ONCE ONCE PO Last administered on 02/17/17at 16:14; Start 02/17/17 at 15:15; Stop 02/17/17 at 15:21; Status DC Protamine Sulfate (Protamine Sulfate Inj) 50 mg STK-MED ONCE .ROUTE ; Start 02/18 at 13:55; Stop 02/18/17 at 13:56; Status DC Heparin Sodium (Porcine) (Heparin Inj) 10,000 units STK-MED ONCE .ROUTE ; Start 02/18/17 at 13:55; Stop 02/18/17 at 13:56; Status DC Thrombin (Thrombin Top [place]) 20,000 units STK-MED ONCE .ROUTE Last administered on 02/18/17at 13:56; Start 02/18/17 at 13:56; Stop 02/18/17 at 13:57; Status DC Heparin Sodium/ Sodium Chloride 500 ml @ As Directed STK-MED ONCE .ROUTE Last administered on 02/18/17at 13:56; Start 02/18/17 at 13:56; Stop 02/18/17 at 13:57; Status DC Heparin Sodium (Porcine) (Heparin Inj) 10,000 units STK-MED ONCE .ROUTE ; Start 02/18/17 at 13:57; Stop 02/18/17 at 13:58; Status DC Bupivacaine HCl (Marcaine Pf 0.5% Inj) 30 ml STK-MED ONCE .ROUTE Last administered on 02/18/17at 14:05; Start 02/18/17 at 14:05; Stop 02/18/17 at 14:06; Status DC Vancomycin HCl (Vancomycin Inj) 1,000 mg STK-MED ONCE .ROUTE Last administered on 02/18/17at 14:15; Start 02/18/17 at 14:06; Stop 02/18/17 at 14:07; Status DC Sodium Chloride 250 ml @ As Directed STK-MED ONCE .ROUTE ; Start 02/18/17 at 14: 06; Stop 02/18/17 at 14:07; Status DC Fentanyl Citrate (fentaNYL INJ) 300 mcg STK-MED ONCE .ROUTE ; Start 02/18/17 at 15:00; Stop 02/18/17 at 15:01; Status DC Fentanyl Citrate (fentaNYL INJ) 200 mcg STK-MED ONCE .ROUTE ; Start 02/18/17 at 15:13; Stop 02/18/17 at 15:14; Status DC Oxycodone HCl (Roxicodone) 5 mg Q4H PRN PO PAIN SCALE 3 TO 5; Start 02/18/17 at 15:30 Hydromorphone HCl (Dilaudid) 2 mg Q4H PRN PO PAIN SCALE 6 TO 10 Last administered on 02/19/17at 09:10; Start 02/18/17 at 15:30 Morphine Sulfate (Morphine Inj) 2 mg Q1H PRN IV PUSH BREAKTHROUGH PAIN; Start 02/18/17 at 15:45 Miscellaneous Information ALL NURSING DEPARTME... UNSCH PRN .XX SEE LABEL COMMENTS; Start 02/18/17 at 16:32; Stop 02/19/17 at 16:31 A/P Assessment and Plan Patient p/w failed AV fistula Occluded aneurysmal L UE AVF. -Status post L UE access excision on 02/18/2017 -s/p catheter -Per Dr. Nunez, dressing surgeon stated will take dressings down tomorrow. End-stage renal disease on hemodialysis Saturday -Nephro consulted and ff Hypertension -anti-hypertensive meds held due to hypotension. asymptomatic. Currently normotensive. Hyperkalemia - due to end-stage renal disease -asymptomatic. -dialysis as above. Discharge Planning Possible discharge tomorrow if okay by vascular surgeon. Myra Mohamud MD Feb 19, 2017 11:36
[2017-02-19] MEDS: HEPARIN SODIUM - SQ 10,000 UNITS/ML VIAL SQ SCH (12:47)
[2017-02-20] VITALS (7 sets, daily range): BP systolic 112–154; BP diastolic 57–90; PULSE 72–87; RESP 16–20; TEMP 95.5–98; O2SAT 92–98
[2017-02-20] MEDS: HEPARIN SODIUM - SQ 10,000 UNITS/ML VIAL SQ SCH ×3 (00:26→23:42)
[2017-02-20] MEDS: CINACALCET HYDROCHLORIDE 30 MG TAB PO SCH (08:00)
[2017-02-20] MEDS: DOCUSATE SODIUM 50 MG/SENNA 8.6 MG TAB PO SCH ×2 (08:00→20:26)
[2017-02-20] MEDS: cloNIDine HCL 0.2 MG TAB PO SCH ×2 (08:00→20:26)
[2017-02-20] MEDS: SEVELAMER CARBONATE 800 MG TAB PO SCH ×3 (08:01→18:18)
[2017-02-20] MEDS: SODIUM CHLORIDE 0.9% FLUSH 10 ML FLUSH IV FLUSH SCH ×2 (08:01→19:42)
[2017-02-20] MEDS: METOPROLOL SUCCINATE 50 MG EXTENDED RELEASE TAB PO SCH (08:01)
[2017-02-20] MEDS: RAMIPRIL 5 MG CAP PO SCH ×2 (08:01→20:26)
--- NOTE | 2017-02-20 08:06 | PD.VS.PN ---
Subjective POD #: 2 Procedure(s): L UE access excision Subjective/Hospital Course pain controlled hand ok c/o arm itching Objective Vitals/I&O Date Time Temp Pulse Resp B/P (MAP) Pulse Ox O2 Delivery O2 Flow Rate FiO2 02/20/17 04:00 97.0 72 20 136/68 (90) 98 02/20/17 00:00 97.7 76 18 121/61 (81) 92 02/19/17 20:05 85 02/19/17 20:00 96.0 83 20 145/84 (104) 92 02/19/17 18:24 16 02/19/17 16:00 97.5 80 18 115/60 (78) 95 02/19/17 12:00 98.1 92 18 116/59 (78) 91 02/19/17 08:58 98 Nasal Cannula 2.00 02/19/17 08:55 90 02/20/17 02/20/17 02/20/17 07:00 15:00 23:00 Intake Total 480 ml Balance 480 ml Exam: L UE incision c/d/i modest arm swelling palpable radial pulse Assessment and Plan Plan POD#2 s/p L UE access excision 1. HEAVEN wrap for comfort fingers to shoulder 2. D/C planning - ok to d/c today/tomorrow per patient and will schedule f/u 2 weeks with me in clinic Genaro Nunez MD FACS RPVI tenoner operator [facility] - Heart and Vascular Surgery at [facility] [phone] Discharge Planning likely tomorrow (POD#2) Genaro Nunez MD Feb 20, 2017 08:06
--- NOTE | 2017-02-20 09:14 | HHI.NPPN ---
Subjective General Problems: Anemia Renal Failure: Chronic, End Stage Renal Disease Interval History Seen during dialysis. States his discharge has been changed to tomorrow. Some pain left arm. (Pilar Bravo) Review of Systems Musculoskeletal MS: Pain/Stiffness (Pilar Bravo) Objective Data Data Vital Signs Date Time Temp Pulse Resp B/P (MAP) Pulse Ox O2 Delivery O2 Flow Rate FiO2 02/20/17 04:00 97.0 72 20 136/68 (90) 98 02/20/17 00:00 97.7 76 18 121/61 (81) 92 02/19/17 20:05 85 02/19/17 20:00 96.0 83 20 145/84 (104) 92 02/19/17 18:24 16 02/19/17 16:00 97.5 80 18 115/60 (78) 95 02/19/17 12:00 98.1 92 18 116/59 (78) 91 (Pilar Bravo) -: 02/19/17 0655 02/19/17 0655 Tubes & Lines: Perma-Cath (Pilar Bravo) Physical Exam General Appearance: Well Developed, Well Nourished, Comfortable (Pilar Bravo) Eyes Eye Exam: Pupils Equal (Pilar Bravo) Neck Neck Exam: Neck Supple (Pilar Bravo) Pulmonary Resp Exam: Clear Bilaterally, Breath Sounds Equal, No Distress (Pilar Bravo) Cardiology CV Exam: Regular, Normal Sinus Rhythm (Pilar Bravo) Gastrointestinal/Abdomen GI Exam: Soft, Non-Tender, Bowel Sounds Present (Pilar Bravo) Musculoskeletal MS Exam: Normal Tone, Good Strength (Pilar Bravo) Integumentary Skin Exam: Warm, Dry Skin Remarks Left arm minor edema. Sensation intact. Distal pulses strong (Pilar Bravo) Extremeties Extremities Exam: No Edema (Pilar Bravo) Assessment/Plan Discussed Condition With: Patient, Relative Assessment Summary: Anemia of CKD, Hypertension, End Stage Renal Disease Problem List: (1) ESRD (end stage renal disease) on dialysis ICD Codes: N18.6 - End stage renal disease; Z99.2 - Dependence on renal dialysis Plan: Seen during dialysis today on a 2K, 350 BFR, goal 3L Continue IHD support on MWF Permcath in place for treatment Avoid IVF, gadolinium is contraindicated Intermittently obtain renal panel On epogen for anemia High protein diet ordered (2) AVF (arteriovenous fistula) ICD Codes: I77.0 - Arteriovenous fistula, acquired Plan: Vascular is following S/P excision will need new access created in future (3) Metabolic bone disease ICD Codes: E88.9 - Metabolic disorder, unspecified; M90.80 - Osteopathy in diseases classified elsewhere, unspecified site Plan: On high dose renvela, repeat phosphorus level intermittently (4) HTN (hypertension) ICD Codes: I10 - Essential (primary) hypertension Plan: Continue present medications (Pilar Bravo) Plan patient was seen and examined. Seen during dialysis. UF 3 liters. On 2K (Johann Oconnor MD) Pilar Bravo Feb 20, 2017 09:14 Johann Oconnor MD Feb 20, 2017 10:16
[2017-02-20] MEDS: HEPARIN SODIUM - IV 10,000 UNITS/10 ML VIAL PRN (11:05)
[2017-02-20] MEDS: GENTAMICIN SULFATE (DIALYSIS USE ONLY) 20 MG/2 ML VIAL OTHER PRN (11:06)
--- NOTE | 2017-02-20 14:48 | HHI.PR ---
Subjective Remarks Decreased swelling at left arm. Patient is doing well. Pain control. No new complaints. Objective Vital Signs Date Time Temp Pulse Resp B/P (MAP) Pulse Ox O2 Delivery O2 Flow Rate FiO2 02/20/17 12:00 96.5 87 18 152/81 (104) 95 02/20/17 08:00 95.5 80 16 154/90 (111) 97 02/20/17 07:45 80 02/20/17 07:45 80 02/20/17 04:00 97.0 72 20 136/68 (90) 98 02/20/17 00:00 97.7 76 18 121/61 (81) 92 02/19/17 20:05 85 02/19/17 20:00 96.0 83 20 145/84 (104) 92 02/19/17 18:24 16 02/19/17 16:00 97.5 80 18 115/60 (78) 95 I/O 02/19/17 02/19/17 02/19/17 02/20/17 02/20/17 02/20/17 07:00 15:00 23:00 07:00 15:00 23:00 Intake Total 360 ml 960 ml 480 ml Output Total 0 ml 2400 ml Balance 360 ml 960 ml 480 ml -2400 ml Intake Oral 360 ml 960 ml 480 ml Output Urine Total 0 ml Hemodialysis 2400 ml # Voids 1 1 # Bowel Movements 0 0 Result Diagram: 02/19/17 0655 02/19/17 0655 Objective Remarks GENERAL: NAD, A&Ox3 HEAD: Normocephalic. NECK: Supple, trachea midline. No lymphadenopathy. EYES: No scleral icterus. No injection or drainage. CARDIOVASCULAR: Regular rate and rhythm without murmurs, gallops, or rubs. RESPIRATORY: Breath sounds equal bilaterally. No accessory muscle use. GASTROINTESTINAL: Abdomen soft, non-tender, nondistended. MUSCULOSKELETAL: No cyanosis, or edema. Bilateral arm swelling, tenderness at left arm. Overall improved swelling at left arm. SKIN: Warm and dry. NEURO: No focal neurological deficitis. A/P Problem List: (1) Thrombosis due to arteriovenous access device for hemodialysis ICD Code: T82.868A - Thrombosis due to vascular prosthetic devices, implants and grafts, initial encounter Status: Acute (2) ESRD (end stage renal disease) on dialysis ICD Code: N18.6 - End stage renal disease; Z99.2 - Dependence on renal dialysis (3) HTN (hypertension) ICD Code: I10 - Essential (primary) hypertension (4) AVF (arteriovenous fistula) ICD Code: I77.0 - Arteriovenous fistula, acquired Assessment and Plan 46-year-old male admitted secondary to failed AV fistula with thrombosis Occluded aneurysmal L UE AVF Status post L UE access excision on 02/18/2017 New catheter placement during this stay Dressings haven't taken down today. 1 day further monitoring advised per vascular surgery Hypertension Monitor blood pressures Resume baseline treatments as tolerated, if needed End-stage renal disease Hyperkalemia Continue dialysis as needed Nephrology following Monitor potassium levels Discharge Planning Possible discharge tomorrow if okay by vascular surgeon Problem Qualifiers (1) Thrombosis due to arteriovenous access device for hemodialysis: Qualified Codes: T82.868A - Thrombosis due to vascular prosthetic devices, implants and grafts, initial encounter Pratik Javed MD Feb 20, 2017 14:48
[2017-02-20] MEDS: HYDROmorphone HCL 2 MG TAB PO PRN (15:10)
[2017-02-20] MEDS: oxyCODONE/ACETAMINOPHEN 10 MG/325 MG TAB PO PRN (21:01)
[2017-02-21] VITALS: BP 141/71; PULSE 79; RESP 16; TEMP 96.5; O2SAT 95
[2017-02-21 02:30] VITALS: PULSE 79
[2017-02-21 04:00] VITALS: BP 139/71; PULSE 77; RESP 17; TEMP 98.9; O2SAT 94
[2017-02-21 08:00] VITALS: BP 142/82; PULSE 77; RESP 18; TEMP 97.5; O2SAT 95
[2017-02-21 08:48] LABS: HEMATOCRIT 26.7 % (39.0-51.0); MEAN CELL VOLUME 95.8 FL (80.0-100.0); MEAN CORPUSCULAR HEMOGLOBIN 32.5 PG (27.0-34.0); MEAN CORPUSCULAR HGB CONC 33.9 % (32.0-36.0); MEAN PLATELET VOLUME 9.2 FL (7.0-11.0); PLATELET COUNT 165 TH/MM3 (150-450); RED BLOOD COUNT 2.79 MIL/MM3 (4.50-5.90); RED CELL DISTRIBUTION WIDTH 14.4 % (11.6-17.2); WHITE BLOOD COUNT 3.1 TH/MM3 (4.0-11.0)
[2017-02-21 09:13] LABS: AST (GOT) 17 U/L (15-37); BLOOD UREA NITROGEN 46 MG/DL (7-18); CALCIUM 9.6 MG/DL (8.5-10.1); CHLORIDE 96 MEQ/L (98-107); GLOMERULAR FILTRATION RATE 4 ML/MIN (>89); GLUCOSE,RANDOM 78 MG/DL (74-106); SODIUM (NA) 135 MEQ/L (136-145)
[2017-02-21 09:15] LABS: ALT (GPT) 8 U/L (12-78)
[2017-02-21 09:16] LABS: ALKALINE PHOSPHATASE 68 U/L (45-117); TOTAL BILIRUBIN ADULT 0.3 MG/DL (0.2-1.0); TOTAL PROTEIN 7.1 GM/DL (6.4-8.2)
[2017-02-21 09:28] LABS: CREATININE 15.42 MG/DL (0.60-1.30)
[2017-02-21 10:25] LABS: LYMPHOCYTES 23 % (9-44); MONOCYTES 22 % (0-8); NEUTROPHIL # MANUAL DIFF 1.6 TH/MM3 (1.8-7.7); POLYS (SEG NEUTROPHILS) 53 % (16-70)
--- NOTE | 2017-02-21 10:29 | PD.VS.PN ---
Subjective POD #: 3 Procedure(s): L UE access excision Subjective/Hospital Course Pt alert in NAD Pain controlled Pt with mild post operative LUE swelling LUE Incision intact UE warm w/ motor intact Objective Vitals/I&O Date Time Temp Pulse Resp B/P (MAP) Pulse Ox O2 Delivery O2 Flow Rate FiO2 02/21/17 08:00 97.5 77 18 142/82 (102) 95 02/21/17 04:00 98.9 77 17 139/71 (93) 94 02/21/17 02:30 79 02/21/17 02:05 Nasal Cannula 2.00 02/21/17 00:00 96.5 79 16 141/71 (94) 95 02/20/17 20:00 82 02/20/17 20:00 95.7 84 16 136/74 (94) 95 02/20/17 16:10 18 02/20/17 16:00 98.0 74 17 112/57 (75) 94 02/20/17 12:00 96.5 87 18 152/81 (104) 95 02/21/17 02/21/17 02/21/17 06:59 14:59 22:59 Intake Total 240 ml Balance 240 ml Exam: GENERAL: A&OX3,NAD SKIN: UE Warm and dry LUE incision intact w/ staple closure w/o R/D MUSCULOSKELETAL: No cyanosis/ Mild non pitting edema (LUE) R/L radial pulses palpable Laboratory Laboratory Tests Test 02/21/17 07:35 White Blood Count 3.1 Red Blood Count 2.79 Hemoglobin 9.0 Hematocrit 26.7 Mean Corpuscular Volume 95.8 Mean Corpuscular Hemoglobin 32.5 Mean Corpuscular Hemoglobin Concent 33.9 Red Cell Distribution Width 14.4 Platelet Count 165 Mean Platelet Volume 9.2 CBC Comment AUTO DIFF Blood Urea Nitrogen 46 Creatinine 15.42 Random Glucose 78 Total Protein 7.1 Albumin 3.0 Calcium Level 9.6 Alkaline Phosphatase 68 Aspartate Amino Transf (AST/SGOT) 17 Alanine Aminotransferase (ALT/SGPT) 8 Total Bilirubin 0.3 Sodium Level 135 Potassium Level 4.9 Chloride Level 96 Carbon Dioxide Level 27.0 Anion Gap 12 Estimat Glomerular Filtration Rate 4 Assessment and Plan Assessment: (1) ESRD (end stage renal disease) on dialysis (2) Thrombosis due to arteriovenous access device for hemodialysis Status: Acute (3) AVF (arteriovenous fistula) Plan POD#3 s/p L UE access excision Pt doing well Palpable R/L radial pulses Pain controlled Incision intact Plan Discussed and reviewed post operative care and management w/ pt Pt clear for D/C from a vascular stand point Arranged out pt f/u (AVF Eval) Continue to HEAVEN wrap LUE for comfort fingers to shoulder Tiffani MCKENZIE [facility] [phone] Discharge Planning Today Arranged OP F/U Problem Qualifiers (1) Thrombosis due to arteriovenous access device for hemodialysis: Qualified Codes: T82.868A - Thrombosis due to vascular prosthetic devices, implants and grafts, initial encounter Tiffani Land Feb 21, 2017 10:29
--- NOTE | 2017-02-21 10:40 | HHI.NPPN ---
Subjective General Problems: Anemia Renal Failure: Chronic, End Stage Renal Disease Interval History Cleared for discharge by vascular. No new concerns. Dialyzed yesterday. (Pilar Bravo) Review of Systems Musculoskeletal MS: Pain/Stiffness (Pilar Bravo) Objective Data Data Vital Signs Date Time Temp Pulse Resp B/P (MAP) Pulse Ox O2 Delivery O2 Flow Rate FiO2 02/21/17 08:00 97.5 77 18 142/82 (102) 95 02/21/17 04:00 98.9 77 17 139/71 (93) 94 02/21/17 02:30 79 02/21/17 02:05 Nasal Cannula 2.00 02/21/17 00:00 96.5 79 16 141/71 (94) 95 02/20/17 20:00 82 02/20/17 20:00 95.7 84 16 136/74 (94) 95 02/20/17 16:10 18 02/20/17 16:00 98.0 74 17 112/57 (75) 94 02/20/17 12:00 96.5 87 18 152/81 (104) 95 (Pilar Bravo) -: 02/21/17 0735 02/21/17 0735 Tubes & Lines: Perma-Cath (Pilar Bravo) Physical Exam General Appearance: Well Developed, Well Nourished, No Acute Distress, Comfortable (Pilar Bravo) Eyes Eye Exam: Pupils Equal (Pilar Bravo) Neck Neck Exam: Neck Supple (Pilar Bravo) Pulmonary Resp Exam: Clear Bilaterally, Breath Sounds Equal, No Distress (Pilar Bravo) Cardiology CV Exam: Regular, Normal Sinus Rhythm (Pilar Bravo) Gastrointestinal/Abdomen GI Exam: Soft, Non-Tender, Bowel Sounds Present (Pilar Bravo) Musculoskeletal MS Exam: Normal Tone, Good Strength (Pilar Bravo) Integumentary Skin Exam: Warm, Dry Skin Remarks Left arm minor edema. Sensation intact. Distal pulses strong. [place] intact. (Pilar Bravo) Extremeties Extremities Exam: No Edema (Pilar Bravo) Assessment/Plan Discussed Condition With: Patient, Relative Assessment Summary: Anemia of CKD, Hypertension, End Stage Renal Disease Problem List: (1) ESRD (end stage renal disease) on dialysis ICD Codes: N18.6 - End stage renal disease; Z99.2 - Dependence on renal dialysis Plan: 2.4 L UF yesterday Continue IHD support on MWF, if discharged has existing outpatient arrangements Permcath in place for treatment Avoid IVF, gadolinium is contraindicated Intermittently obtain renal panel On epogen for anemia High protein diet ordered (2) AVF (arteriovenous fistula) ICD Codes: I77.0 - Arteriovenous fistula, acquired Plan: Vascular is following S/P excision will need new access created in future (3) Metabolic bone disease ICD Codes: E88.9 - Metabolic disorder, unspecified; M90.80 - Osteopathy in diseases classified elsewhere, unspecified site Plan: On high dose renvela, repeat phosphorus level intermittently (4) HTN (hypertension) ICD Codes: I10 - Essential (primary) hypertension Plan: Continue present medications (Pilar Bravo) Plan patient was seen and examined. To be discharged today. Agree with above assessment and plan. (Johann Oconnor MD) Pilar Bravo Feb 21, 2017 10:40 Johann Oconnor MD Feb 21, 2017 17:42
[2017-02-21] MEDS: CINACALCET HYDROCHLORIDE 30 MG TAB PO SCH (11:07)
[2017-02-21] MEDS: METOPROLOL SUCCINATE 50 MG EXTENDED RELEASE TAB PO SCH (11:07)
[2017-02-21] MEDS: RAMIPRIL 5 MG CAP PO SCH (11:08)
[2017-02-21] MEDS: SEVELAMER CARBONATE 800 MG TAB PO SCH ×2 (11:08→11:16)
[2017-02-21] MEDS: HEPARIN SODIUM - SQ 10,000 UNITS/ML VIAL SQ SCH (11:08)
[2017-02-21] MEDS: DOCUSATE SODIUM 50 MG/SENNA 8.6 MG TAB PO SCH (11:08)
[2017-02-21] MEDS: SODIUM CHLORIDE 0.9% FLUSH 10 ML FLUSH IV FLUSH SCH (11:09)
[2017-02-21] MEDS: cloNIDine HCL 0.2 MG TAB PO SCH (11:09)
[2017-02-21] MEDS ORDERED: DOCU100C15 PO (11:29)
[2017-02-21] MEDS ORDERED: OXYC1TAB63 PO (11:29)
[2017-02-21 12:00] VITALS: BP 142/81; PULSE 83; RESP 18; TEMP 97.7; O2SAT 98
--- NOTE | 2017-02-21 12:03 | HHI.FF ---
Face to Face Verification Diagnosis: (1) Thrombosis due to arteriovenous access device for hemodialysis (2) AVF (arteriovenous fistula) Home Health Nursing Order: Signs/symptoms of disease process Wound care and dressing changes Instructions: Dressing changes of left arm. Wound evaluations of left arm wound. Report any signs of infection. I have seen patient Jackson Rubio on 02/21/17. My clinical findings support the need for the requested home health care services because: Ltd mobility - disease progression I certify that my clinical findings support that this patient is homebound because: Unable to use public transportation Pratik Javed MD Feb 21, 2017 12:03
--- NOTE | 2017-02-21 14:21 | HHI.DS ---
Discharge Summary Admission Date Feb 15, 2017 at 11:41 Discharge Date: Feb 21, 2017 Admitting Diagnosis AV fistula thrombosed (1) ESRD (end stage renal disease) on dialysis ICD Code: N18.6 - End stage renal disease; Z99.2 - Dependence on renal dialysis Diagnosis: Principal (2) AVF (arteriovenous fistula) ICD Code: I77.0 - Arteriovenous fistula, acquired Diagnosis: Principal Procedures Left AV fistula graft revision with thrombus-lysis/thrombectomy. Brief History - From Admission Patient is a 46-year-old male with A CHRONIC AV fistula in his left upper arm. It was placed A FEW years ago and revised not too long ago by Dr. Ramos OF vascular surgeon. Patient HAS HAD PAIN SWELLING AND TENDERNESS IN LEFT UPPER EXTREMITY. PATIENT DENIES ANY ERYTHEMA IN LEFT UPPER EXTREMITY. He was last dialyzed on Saturday 5 days ago BECAUSE OF THE HOLIDAY, PATIENT NORMALLY dialyzes on Saturday and Saturday and Saturday. Patient normally tolerated a full dialysis session. This had worsening pain and swelling for the last 24 hours. Patient has been seen by Dr. Nunez and had a right-sided chest dialysis access placed by interventional radiology. Patient is currently about to undergo hemodialysis through his no ACCESS. Patient was seen in the dialysis lab. Scheduled to undergo surgery on Saturday with Dr. Nunez to create new ACCESS CBC/BMP: 02/21/17 0735 02/21/17 0735 Significant Findings Laboratory Tests Test 02/19/17 06:55 02/21/17 07:35 Red Blood Count 2.94 MIL/MM3 (4.50-5.90) 2.79 MIL/MM3 (4.50-5.90) Hemoglobin 9.6 GM/DL (13.0-17.0) 9.0 GM/DL (13.0-17.0) Hematocrit 28.1 % (39.0-51.0) 26.7 % (39.0-51.0) Blood Urea Nitrogen 39 MG/DL (7-18) 46 MG/DL (7-18) Creatinine 15.28 MG/DL (0.60-1.30) 15.42 MG/DL (0.60-1.30) Potassium Level 5.4 MEQ/L (3.5-5.1) Estimat Glomerular Filtration Rate 4 ML/MIN (>89) 4 ML/MIN (>89) White Blood Count 3.1 TH/MM3 (4.0-11.0) Monocytes % 22 % (0-8) Neutrophils # (Manual) 1.6 TH/MM3 (1.8-7.7) Albumin 3.0 GM/DL (3.4-5.0) Alanine Aminotransferase (ALT/SGPT) 8 U/L (12-78) Sodium Level 135 MEQ/L (136-145) Chloride Level 96 MEQ/L (98-107) PE at Discharge GENERAL: This is a well-nourished, well-developed patient, in no apparent distress. Left arm: Dressing in place. Able to move his fingers and arm. Sensation intact. CARDIOVASCULAR: Regular rate and rhythm without murmurs, gallops, or rubs. S1 and S2 no S3 or S4 no heave or thrill or rub or gallop-- Has right-sided hemodialysis access now RESPIRATORY: Clear to auscultation. Breath sounds equal bilaterally. No wheezes , rales, or rhonchi. GASTROINTESTINAL: Abdomen soft, non-tender, nondistended. No hepato-splenomegaly , or palpable masses. No guarding. Obese Hospital Course Mr. Rubio is a 46-year-old male. He was admitted secondary to occlusion of his AV fistula. Intervention was performed and resolution of his occlusion/ thrombosis was successful. He's been monitored overnight to ensure no recurrence of symptoms. At this point she needs continued wound care of his left arm but he is medically stable for discharge to home. Outpatient home health for wound monitoring and management dressings has been ordered. The patient is medically clear for discharge home today. Pt Condition on Discharge: Stable Discharge Disposition: Disch w/ Home Health Serv Discharge Time: <= 30 minutes Discharge Instructions DIET: Follow Instructions for: As Tolerated, No Restrictions Activities you can perform: Regular-No Restrictions Follow up Referrals: PCP Follow-up - 2 Weeks Vascular Surgery @ Vascular Surgery with Genaro Nunez MD New Medications: Docusate Sodium (Docusate Sodium) 100 Mg Cap 100 MG PO BID PRN for CONSTIPATION, #60 CAP 0 Refills Oxycodone HCl/Acetaminophen (Oxycodone-Acetaminophen 5-325) 5 Mg-325 Mg Tablet 1 TAB PO Q6H PRN for Pain, #40 TAB Continued Medications: Amlodipine (Amlodipine) 10 Mg Tab 10 MG PO DAILY for Blood Pressure Management, #30 TAB 0 Refills Cinacalcet (Sensipar) 30 Mg Tab 30 MG PO DAILY, #30 TAB 0 Refills Clonidine (Clonidine) 0.2 Mg Tab 0.2 MG PO BID for Blood Pressure Management, #60 TAB 0 Refills Metoprolol Succinate ER 24 HR (Toprol XL) 100 Mg Tab 100 MG PO DAILY, #30 TAB 0 Refills Ramipril (Altace) 10 Mg Cap 10 MG PO BID, #60 CAP 0 Refills Sevelamer Carbonate (Renvela) 800 Mg Tab 800 MG PO TID for Control phosphorous levels, #90 TAB 0 Refills Pratik Javed MD Feb 21, 2017 14:21
== END 2017-02-21 13:57 | disposition home health service (06) | DRG 252 ==
LOC: NEPE 05:18 → NEDA 06:38 → OBSVTOIN 11:41 → N07A 15:30
PROVIDERS: ADMIT Hospitalist; ATTEND Hospitalist
PROC: 5A1D70Z Performance of Urinary Filtration, Intermittent, Less than 6 Hours Per Day (ICD-10-PCS; 2017-02-15)
PROC: 02HV33Z Insertion of Infusion Device into Superior Vena Cava, Percutaneous Approach (ICD-10-PCS; 2017-02-15)
PROC: 05BY0ZZ Excision of Upper Vein, Open Approach (ICD-10-PCS; principal; 2017-02-18 13:45)
DX: T82.868A Thrombosis due to vascular prosthetic devices, implants and grafts, initial encounter (principal); N18.6 End stage renal disease; I13.2 Hypertensive heart and chronic kidney disease with heart failure and with stage 5 chronic kidney disease, or end stage renal disease; Z68.42 Body mass index [BMI] 45.0-49.9, adult; E83.39 Other disorders of phosphorus metabolism; N25.0 Renal osteodystrophy; I50.9 Heart failure, unspecified; Y83.2 Surgical operation with anastomosis, bypass or graft as the cause of abnormal reaction of the patient, or of later complication, without mention of misadventure at the time of the procedure; Z99.2 Dependence on renal dialysis; E66.9 Obesity, unspecified; E87.5 Hyperkalemia; D63.1 Anemia in chronic kidney disease
CPT/HCPCS: 36558; 76937; 77001; 80048; 80053; 83036; 83735; 84100; 84439; 84443; 85007; 85025; 85027; 85610; 86850; 86900; 86901; 90935; 93970; 93998; 96374; 96375; 99152; 99153; 99285; C1750; C1769; C1887; J0690; J1580; J1644; J2250; J2370; J2405; J2710; J2720; J3010; J3370; J7030; J7040; J7050; Q9967

== ENCOUNTER → 2017-04-04 | Outpatient (CLI) | payer MEDICARE, MEDICAID ==
[~2017-04-04] MED LIST changes: +ALTA10CA12 PO; -AMLO10 PO; +AMLO10TA2 PO; -CLON.2 PO; +CLON0.2T PO; +DOCU100C15 PO; +OXYC1TAB63 PO; -RAMI10CA PO; +RENACAP2 PO; -SEVEL800 OR; +SEVEL800 PO; +TOPR100T PO; -TOPR100T15 PO
[2017-04-04 12:46] LABS: HEMATOCRIT 32.5 % (39.0-51.0); HEMOGLOBIN 10.9 GM/DL (13.0-17.0); MEAN CELL VOLUME 95.9 FL (80.0-100.0); MEAN CORPUSCULAR HEMOGLOBIN 32.1 PG (27.0-34.0); MEAN CORPUSCULAR HGB CONC 33.5 % (32.0-36.0); MEAN PLATELET VOLUME 9.2 FL (7.0-11.0); PLATELET COUNT 183 TH/MM3 (150-450); RED BLOOD COUNT 3.39 MIL/MM3 (4.50-5.90); RED CELL DISTRIBUTION WIDTH 15.3 % (11.6-17.2); WHITE BLOOD COUNT 3.6 TH/MM3 (4.0-11.0)
[2017-04-04 13:01] LABS: PROTHROMBIN TIME - PATIENT 10.5 SEC (9.8-11.6)
[2017-04-04 13:08] LABS: BICARBONATE 25.7 MEQ/L (21.0-32.0); CALCIUM 10.1 MG/DL (8.5-10.1)
[2017-04-04 13:22] LABS: CREATININE 12.26 MG/DL (0.60-1.30)
== END ==
LOC: CPRE 10:48
PROVIDERS: ATTEND Surgery
DX: Z01.812 Encounter for preprocedural laboratory examination (principal); N18.6 End stage renal disease
CPT/HCPCS: 36415; 80048; 85027; 85610; 85730

== ENCOUNTER 2017-04-09 10:34 | Observation (INO) | payer MEDICARE, MEDICAID ==
[2017-04-09] VITALS (9 sets, daily range): BP systolic 142–182; BP diastolic 81–95; PULSE 82–122; RESP 16–18; TEMP 97.1–97.8; O2SAT 94–96
[~2017-04-09] VITALS: Ht 172.7 cm; Wt 128.0 kg
[2017-04-09] MEDS ORDERED: PROTAMINE SULFATE 50 MG/5 ML VIAL ONE (10:52)
[2017-04-09] MEDS ORDERED: HEPARIN SODIUM - IV 10,000 UNITS/10 ML VIAL ONE ×2 (10:53→15:11)
[2017-04-09] MEDS ORDERED: VANCOMYCIN HCL 1000 MG VIAL ONE (10:53)
[2017-04-09] MEDS ORDERED: BUPIVACAINE HCL PF 0.5% 30 ML VIAL ONE (10:53)
[2017-04-09] MEDS ORDERED: HEPARIN-NS/PF INJ 500 ML ONE (10:53)
[2017-04-09] MEDS ORDERED: THROMBIN (TOPICAL) 20,000 UNIT SPRAY KIT ONE (10:54)
[2017-04-09] MEDS ORDERED: FAMOTIDINE 20 MG/2 ML VIAL ONE (11:31)
[2017-04-09] MEDS ORDERED: PROPOFOL 200 MG/20 ML AMP IV ONE (12:00)
[2017-04-09] MEDS ORDERED: PHENYLEPH/NS 1000 MCG/10 ML SYR IV ONE (12:00)
[2017-04-09] MEDS ORDERED: NEOSTIGMINE 5 MG/5 ML SYRINGE IV PUSH ONE (12:00)
[2017-04-09] MEDS ORDERED: GLYCOPYRROLATE 1 MG/5 ML SYRINGE IV PUSH ONE (12:00)
[2017-04-09] MEDS ORDERED: SODIUM CHLOR 0.9% 250 ML INJ 250 ML IV ONE (12:00)
[2017-04-09] MEDS ORDERED: LIDOCAINE HCL 1% PF 5 ML SYRINGE OTHER ONE (12:00)
[2017-04-09] MEDS ORDERED: METOPROLOL TARTRATE 5 MG/5 ML VIAL IV ONE (12:00)
[2017-04-09] MEDS ORDERED: ROCURONIUM INJ 50 MG/5 ML SYRINGE IV PUSH ONE (12:00)
[2017-04-09 12:01] LABS: BICARBONATE 27.5 MEQ/L (21.0-32.0)
--- NOTE | 2017-04-09 12:05 | HHI.HP ---
History of Present Illness Chief Complaint: ESRD, need for HD access History of Present Illness 47 yo male with ESRD, on HD via R chest catheter. Failed L UE access. No other autogenous options Past/Family/Social History Past Medical History ESRD, HTN Home Medications Active Scripts Docusate Sodium (Docusate Sodium) 100 Mg Cap, 100 MG PO BID Y for CONSTIPATION, #60 CAP 0 Refills Prov:Pratik Javed MD 02/21/17 Oxycodone HCl/Acetaminophen (Oxycodone-Acetaminophen 5-325) 5 Mg-325 Mg Tablet, 1 TAB PO Q6H Y for Pain, #40 TAB Prov:Pratik Javed MD 02/21/17 Reported Medications B-Complex W/ C & Folic Acid (Renal Vitamin) 1 Cap, 1 CAP PO DAILY for Nutritional Supplement, #30 CAP 0 Refills If on dialysis, take after treatment. 04/04/17 Sevelamer Carbonate (Renvela) 800 Mg Tab, 800 MG PO TID for Control phosphorous levels, #90 TAB 0 Refills 02/15/17 Metoprolol Succinate ER 24 HR (Toprol XL) 100 Mg Tab, 100 MG PO DAILY, #30 TAB 0 Refills 02/15/17 Ramipril (Altace) 10 Mg Cap, 10 MG PO BID, #60 CAP 0 Refills 02/15/17 Clonidine (Clonidine) 0.2 Mg Tab, 0.2 MG PO BID for Blood Pressure Management, # 60 TAB 0 Refills 02/15/17 Cinacalcet (Sensipar) 30 Mg Tab, 30 MG PO DAILY, #30 TAB 0 Refills 02/15/17 Amlodipine (Amlodipine) 10 Mg Tab, 10 MG PO DAILY for Blood Pressure Management , #30 TAB 0 Refills 02/15/17 Coded Allergies: No Known Allergies (Verified Allergy, Unknown, 04/09/17) Review of Systems Constitutional: DENIES: Diaphoretic episodes, Fatigue, Fever, Weight gain, Weight loss, Chills, Dizziness, Change in appetite, Night Sweats Physical Exam Vitals/I&O Date Time Temp Pulse Resp B/P (MAP) Pulse Ox O2 Delivery O2 Flow Rate FiO2 04/09/17 11:30 98.2 96 20 160/98 (118) 99 Neuro: alert, oriented, no distress HEENT: NC/AT Neck: no JVD Heart: reg rate Lungs: clear B Vascular: L UE incision healed R UE no incisions or rashes Laboratory Tests Test 04/09/17 11:20 Sodium Level 138 Potassium Level 4.6 Chloride Level 102 Carbon Dioxide Level 27.5 Anion Gap 9 Caprini VTE Risk Assessment Caprini VTE Risk Assessment: No/Low Risk (score <= 1) Caprini Risk Assessment Model Point Value = 1 Point Value = 2 Point Value = 3 Point Value = 5 Age 41-60 Minor surgery BMI > 25 kg/m2 Swollen legs Varicose veins or History of unexplained or recurrent spontaneous Oral contraceptives or hormone replacement Sepsis (< 1 month) Serious lung disease, including pneumonia (< 1 month) Abnormal pulmonary function Acute myocardial infarction Congestive heart failure (< 1 month) History of inflammatory bowel disease Medical patient at bed rest Age 61-74 Arthroscopic surgery Major open surgery (> 45 min) Laparoscopic surgery (> 45 min) Malignancy Confined to bed (> 72 hours) Immobilizing plaster cast Central venous access Age >= 75 History of VTE Family history of VTE Factor V Leiden Prothrombin [id number] Lupus anticoagulant Anticardiolipin antibodies Elevated serum homocysteine Heparin-induced thrombocytopenia Other congenital or acquired thrombophilia Stroke (< 1 month) Elective arthroplasty Hip, pelvis, or leg fracture Acute spinal cord injury (< 1 month) Prophylaxis Regimen Total Risk Factor Score Risk Level Prophylaxis Regimen 0-1 Low Early ambulation 2 Moderate Order ONE of the following: *Sequential Compression Device (SCD) *Heparin 5000 units SQ BID 3-4 Higher Order ONE of the following medications: *Heparin 5000 units SQ TID *Enoxaparin/Lovenox 40 mg SQ daily (WT < 150 kg, CrCl > 30 mL/min) *Enoxaparin/Lovenox 30 mg SQ daily (WT < 150 kg, CrCl > 10-29 mL/min) *Enoxaparin/Lovenox 30 mg SQ BID (WT < 150 kg, CrCl > 30 mL/min) AND/OR *Sequential Compression Device (SCD) 5 or more Highest Order ONE of the following medications: *Heparin 5000 units SQ TID (Preferred with Epidurals) *Enoxaparin/Lovenox 40 mg SQ daily (WT < 150 kg, CrCl > 30 mL/min) *Enoxaparin/Lovenox 30 mg SQ daily (WT < 150 kg, CrCl > 10-29 mL/min) *Enoxaparin/Lovenox 30 mg SQ BID (WT < 150 kg, CrCl > 30 mL/min) AND *Sequential Compression Device (SCD) Assessment and Plan Plan Needs HD access R UE brach-ax with PTFE POA for obs Genaro Nunez MD Apr 09, 2017 12:05
[2017-04-09] MEDS ORDERED: LACTATED RINGER'S 1000 ML IV PRN (12:30)
[2017-04-09] MEDS ORDERED: SODIUM CHLORID 0.9% 500 ML IV PRN (12:30)
[2017-04-09] MEDS ORDERED: CHLORHEXIDINE GLUCONATE 2 % 1 PACK (2 CLOTHS) TOPICAL PRN (12:30)
[2017-04-09] MEDS ORDERED: POVIDONE IODINE 5% (ANTISEPSIS KIT) 4 APPLICATIONS EACH NARE PRN (12:30)
[2017-04-09] MEDS ORDERED: METOPROLOL TARTRATE 25 MG TAB PO PRN (12:30)
--- NOTE | 2017-04-09 13:44 | HHI.PR ---
cc: Genaro Nunez MD Immediate Post Op Note Procedure Date: Apr 09, 2017 Pre Op Diagnosis: ESRD, need for HD access Post Op Diagnosis: ESRD, need for HD access Surgeon: Genaro Nunez Air Brake Man(s): Genaro Miranda Procedure: R brach-ax with PTFE Findings: 4mm artery, 6mm vein Additional Information: strong Doppler signal at wrist at end of case Complications: none Specimen(s) removed: none Estimated blood loss: 50mL Anesthesia: LMA Drains: None Fluids: 650mL IVF Patient to: PACU Patient Condition: Good Implant/Devices: SEE IMPLANT LOG (if applicable) Date/Time of Procedure: SEE SURGICAL CARE RECORD Genaro Nunez MD Apr 09, 2017 13:44
[2017-04-09] MEDS ORDERED: BISACODYL 10 MG SUPP RECTAL PRN (13:45)
[2017-04-09] MEDS ORDERED: DOCUSATE SODIUM 100 MG CAP PO PRN (13:45)
[2017-04-09] MEDS ORDERED: MORPHINE SULFATE 2 MG/ML INJ IV PUSH PRN (13:45)
[2017-04-09] MEDS ORDERED: SENNOSIDES 8.6 MG TAB PO PRN (13:45)
[2017-04-09] MEDS ORDERED: LACTULOSE SYRUP 20 GM/30 ML CUP PO PRN (13:45)
[2017-04-09] MEDS ORDERED: *morphine SULFATE 10 MG/ML PERIprocedure ONLY ONE (14:50)
[2017-04-09] MEDS ORDERED: Hemodialysis Vas Acc Cath PRN Heparin 1000 unit/ml Flush IV FLUSH (15:15)
[2017-04-09] MEDS ORDERED: Hemodialysis Vas Access Cath PRN NS Lock Flush IV FLUSH (15:15)
[2017-04-09] MEDS ORDERED: DO NOT ADM ANY ANTICOAGULANT DRUGS PRN (15:15)
[2017-04-09] MEDS: HYDROmorphone HCL 2 MG TAB PO PRN ×2 (16:04→21:33)
[2017-04-09] MEDS: SEVELAMER CARBONATE 800 MG TAB PO SCH (17:28)
[2017-04-09] MEDS: DOCUSATE SODIUM 50 MG/SENNA 8.6 MG TAB PO SCH (21:33)
[2017-04-09] MEDS: FAMOTIDINE 20 MG TAB PO SCH (21:33)
[2017-04-09] MEDS: cloNIDine HCL 0.2 MG TAB PO SCH (21:33)
[2017-04-09] MEDS: RAMIPRIL 5 MG CAP PO SCH (21:34)
[2017-04-09] MEDS ORDERED: METOPROLOL TARTRATE 5 MG/5 ML VIAL IV PUSH PRN (21:45)
[2017-04-10] VITALS (10 sets, daily range): BP systolic 115–125; BP diastolic 61–63; PULSE 79–106; RESP 16–18; TEMP 97.1–97.5; O2SAT 96
[2017-04-10 05:35] LABS: HEMATOCRIT 31.3 % (39.0-51.0); HEMOGLOBIN 10.5 GM/DL (13.0-17.0); MEAN CELL VOLUME 96.1 FL (80.0-100.0); MEAN CORPUSCULAR HEMOGLOBIN 32.1 PG (27.0-34.0); MEAN CORPUSCULAR HGB CONC 33.4 % (32.0-36.0); MEAN PLATELET VOLUME 8.6 FL (7.0-11.0); PLATELET COUNT 183 TH/MM3 (150-450); RED BLOOD COUNT 3.25 MIL/MM3 (4.50-5.90); RED CELL DISTRIBUTION WIDTH 14.7 % (11.6-17.2)
[2017-04-10 05:58] LABS: BICARBONATE 26.8 MEQ/L (21.0-32.0); CALCIUM 10.1 MG/DL (8.5-10.1)
[2017-04-10 06:10] LABS: CREATININE 12.6 MG/DL (0.60-1.30)
[2017-04-10] MEDS ORDERED: EPOETIN ALFA 10,000 UNITS/ML VIAL IV PUSH PRN (08:15)
[2017-04-10] MEDS ORDERED: NITROGLYCERIN 0.4 MG SL 25 TABS/BTL SL PRN (08:15)
[2017-04-10] MEDS ORDERED: MANNITOL 12.5 GM/50 ML VIAL IV PRN (08:15)
[2017-04-10] MEDS ORDERED: ONDANSETRON HCL 4 MG/2 ML VIAL IV PUSH PRN (08:15)
[2017-04-10] MEDS ORDERED: ACETAMINOPHEN 325 MG TAB PO PRN (08:15)
[2017-04-10] MEDS ORDERED: GENTAMICIN SULFATE 20 MG/2 ML VIAL OTHER PRN (08:15)
[2017-04-10] MEDS ORDERED: SODIUM CHLOR 0.9% 1000 ML INJ 1,000 ML OTHER PRN ×2 (08:15)
[2017-04-10] MEDS ORDERED: SODIUM CHLOR 0.9% 1000 ML INJ 1,000 ML IV PRN (08:15)
[2017-04-10] MEDS ORDERED: HEPARIN SODIUM - IV 10,000 UNITS/10 ML VIAL PRN (08:15)
[2017-04-10] MEDS ORDERED: GELATIN 12 MM/7 MM FOAM TOP PRN (08:15)
[2017-04-10] MEDS ORDERED: diphenhydrAMINE HCL 25 MG CAP PO PRN (08:15)
[2017-04-10] MEDS ORDERED: ALBUMIN 25% INJ 100 ML IV PRN (08:15)
[2017-04-10] MEDS ORDERED: HEPARIN SODIUM - IV 10,000 UNITS/10 ML VIAL IV FLUSH PRN (08:15)
[2017-04-10] MEDS ORDERED: SODIUM CHLORIDE 0.9% FLUSH 10 ML FLUSH IV FLUSH PRN (08:15)
[2017-04-10] MEDS ORDERED: cloNIDine HCL 0.1 MG TAB PO PRN (08:15)
[2017-04-10] MEDS ORDERED: VITAMIN B CMPLX/VITC/FOLIC AC CAP PO SCH (09:00)
[2017-04-10] MEDS ORDERED: CINACALCET HYDROCHLORIDE 30 MG TAB PO SCH (09:00)
[2017-04-10] MEDS ORDERED: ASPIRIN 81 MG CHEW TAB PO SCH (09:00)
[2017-04-10] MEDS ORDERED: METOPROLOL SUCCINATE 50 MG EXTENDED RELEASE TAB PO SCH (09:00)
--- NOTE | 2017-04-10 09:12 | PD.CONS ---
HPI Service Nephrology Consult Requested By Mayra Reason for Consult ESRD on HD Primary Care Physician Vikash Hedrick MD History of Present Illness This is a 47 y/o AAM admitted for RUE access revision. He had dialysis last on Saturday. Today his potassium is 5.9, he is seen during dialysis on a 1K bath. PMH listed below. He has discharge plans for today. We were consulted for dialysis management. He is a full code (Pilar Bravo) Review of Systems Constitutional: COMPLAINS OF: Fatigue, DENIES: Weight gain, Change in appetite Cardiovascular: DENIES: Chest pain, Lower Extremity Edema Gastrointestinal: DENIES: Abdominal pain Hematologic/lymphatic: COMPLAINS OF: Bruising (Pilar Bravo) Past Family Social History Allergies: Coded Allergies: No Known Allergies (Verified Allergy, Unknown, 04/09/17) Past Medical History ESRD on HD MWF Hypertension Metabolic bone disorder Anemia Obesity History of congestive heart failure Past Surgical History Left arm AV fistula creation and revision Multiple dialysis access in past Reported Medications Docusate Sodium (Docusate Sodium) 100 Mg Cap, 100 MG PO BID Y for CONSTIPATION, #60 CAP 0 Refills Prov:Pratik Javed MD 02/21/17 Oxycodone HCl/Acetaminophen (Oxycodone-Acetaminophen 5-325) 5 Mg-325 Mg Tablet, 1 TAB PO Q6H Y for Pain, #40 TAB Prov:Pratik Javed MD 02/21/17 Reported Medications B-Complex W/ C & Folic Acid (Renal Vitamin) 1 Cap, 1 CAP PO DAILY for Nutritional Supplement, #30 CAP 0 Refills If on dialysis, take after treatment. 04/04/17 Sevelamer Carbonate (Renvela) 800 Mg Tab, 800 MG PO TID for Control phosphorous levels, #90 TAB 0 Refills 02/15/17 Metoprolol Succinate ER 24 HR (Toprol XL) 100 Mg Tab, 100 MG PO DAILY, #30 TAB 0 Refills 02/15/17 Ramipril (Altace) 10 Mg Cap, 10 MG PO BID, #60 CAP 0 Refills 02/15/17 Clonidine (Clonidine) 0.2 Mg Tab, 0.2 MG PO BID for Blood Pressure Management, # 60 TAB 0 Refills 02/15/17 Cinacalcet (Sensipar) 30 Mg Tab, 30 MG PO DAILY, #30 TAB 0 Refills 02/15/17 Amlodipine (Amlodipine) 10 Mg Tab, 10 MG PO DAILY for Blood Pressure Management , #30 TAB 0 Refills 02/15/17 Active Ordered Medications Current Medications Medications (Trade) Dose Ordered Sig/Roberta Route Start Time Stop Time Status Last Admin Lactated Ringer's 1,000 ml @ 30 mls/hr Q24H PRN IV 04/09/17 12:30 04/12/17 12:29 Sodium Chloride 500 ml @ 30 mls/hr [id number] PRN IV 04/09/17 12:30 04/12/17 12:29 (Lopressor) 25 mg RETORT PRESS OPERATOR PRN PO 04/09/17 12:30 04/12/17 12:29 (Betadine 5% Antisepsis Kit) 1 applic RETORT PRESS OPERATOR PRN EACH NARE 04/09/17 12:30 04/12/17 12:29 (Chlorhexidine 2% Cloth) 3 pack RETORT PRESS OPERATOR PRN TOPICAL 04/09/17 12:30 04/12/17 12:29 (Aspirin Chew) 81 mg DAILY PO 04/10/17 09:00 (Pepcid) 20 mg BID PO 04/09/17 21:00 04/09/17 21:33 (Heparin Inj) 5,000 units Q8H SQ 04/10/17 13:30 (Ayse-Colace) 1 tab BID PO 04/09/17 21:00 04/09/17 21:33 (Senokot) 17.2 mg Q12H PRN PO 04/09/17 13:45 (Dulcolax Supp) 10 mg DAILY PRN RECTAL 04/09/17 13:45 (Lactulose Liq) 30 ml DAILY PRN PO 04/09/17 13:45 (Roxicodone) 5 mg Q4H PRN PO 04/09/17 13:45 (Dilaudid) 2 mg Q4H PRN PO 04/09/17 13:45 04/09/17 21:33 (Morphine Inj) 2 mg Q1H PRN IV PUSH 04/09/17 13:45 (Norvasc) 10 mg DAILY PO 04/10/17 09:00 (Nephrocaps) 1 cap DAILY PO 04/10/17 09:00 (Sensipar) 30 mg DAILY PO 04/10/17 09:00 (Catapres) 0.2 mg BID PO 04/09/17 21:00 04/09/17 21:33 (Colace) 100 mg BID PRN PO 04/09/17 13:45 (Toprol Xl) 100 mg DAILY PO 04/10/17 09:00 (Altace) 10 mg BID PO 04/09/17 21:00 04/09/17 21:34 (Renvela) 800 mg TID PO 04/09/17 18:00 04/09/17 17:28 Miscellaneous Information ALL NURSING DEPARTME... UNSCH PRN .XX 04/09/17 15:15 04/10/17 15:14 (NS Flush) 5 ml UNSCH PRN IV FLUSH 04/09/17 15:15 04/09/17 21:33 (Heparin Inj) 2,000 units UNSCH PRN IV FLUSH 04/09/17 15:15 (Lopressor Inj) 5 mg Q2H PRN IV PUSH 04/09/17 21:45 Sodium Chloride 1,000 ml @ 0 mls/hr Q0M PRN OTHER 04/10/17 08:15 (Heparin Inj) 8,000 units UNSCH PRN IV FLUSH 04/10/17 08:15 Sodium Chloride 1,000 ml @ 200 mls/hr Q5H PRN IV 04/10/17 08:15 Sodium Chloride 1,000 ml @ 0 mls/hr Q0M PRN OTHER 04/10/17 08:15 (Mannitol Inj) 12.5 gm UNSCH PRN IV 04/10/17 08:15 Albumin Human 100 ml @ 60 mls/hr UNSCH PRN IV 04/10/17 08:15 (NS Flush) 5 ml UNSCH PRN IV FLUSH 04/10/17 08:15 (Heparin Inj) UNSCH PRN .XX 04/10/17 08:15 (Gentamicin Inj) 20 mg UNSCH PRN OTHER 04/10/17 08:15 (Zofran Inj) 4 mg UNSCH PRN IV PUSH 04/10/17 08:15 (Tylenol) 650 mg UNSCH PRN PO 04/10/17 08:15 (Benadryl) 25 mg UNSCH PRN PO 04/10/17 08:15 (Nitrostat Sl) 0.4 mg UNSCH PRN SL 04/10/17 08:15 (Catapres) 0.1 mg UNSCH PRN PO 04/10/17 08:15 (Epogen Inj) 4,000 units UNSCH PRN IV PUSH 04/10/17 08:15 (Gelfoam 12 Mm/7 Mm Top) 1 foam UNSCH PRN TOP 04/10/17 08:15 Family History Non contributory Social History Non smoking He is Lives locally Full code Disabled independent (Pilar Bravo) Physical Exam Vital Signs Vital Signs Date Time Temp Pulse Resp B/P (MAP) Pulse Ox O2 Delivery O2 Flow Rate FiO2 04/10/17 08:00 82 04/10/17 07:32 97.5 79 18 115/63 (80) 96 04/10/17 07:00 83 04/10/17 06:00 89 04/10/17 05:00 80 04/10/17 04:00 83 04/10/17 03:00 97.1 99 16 125/61 (82) 96 04/10/17 03:00 90 04/10/17 02:00 97 04/10/17 01:00 106 04/10/17 00:00 105 04/09/17 23:51 18 04/09/17 23:00 97.7 111 16 142/81 (101) 96 04/09/17 23:00 122 04/09/17 22:00 96 04/09/17 21:00 98 04/09/17 20:00 92 04/09/17 19:00 99 04/09/17 19:00 97.1 100 16 182/88 (119) 94 04/09/17 18:00 94 04/09/17 17:00 92 04/09/17 16:24 97.8 82 18 169/95 (119) 96 04/09/17 16:00 82 04/09/17 15:30 97.5 85 16 151/82 (105) 95 Room Air 04/09/17 15:15 88 16 150/85 (106) 94 Room Air 04/09/17 15:00 86 15 154/80 (104) 95 Room Air 04/09/17 14:55 15 04/09/17 14:45 87 15 159/76 (103) 95 Room Air 2/27/18 14:30 90 15 150/74 (99) 94 Room Air 04/09/17 14:24 97.3 96 18 152/74 (100) 100 Simple Mask 7 04/09/17 11:30 98.2 96 20 160/98 (118) 99 Physical Exam Middle aged AAM sitting up in bed receiving HD Permcath right IJ S1/S2, RRR no murmurs Lungs clear, some coughing on exam Abdomen soft No edema to lower extremities RUE with 2+ non pitting edema, distal sensation and motor intact Laboratory Laboratory Tests Test 04/09/17 11:20 04/10/17 05:13 Sodium Level 138 134 Potassium Level 4.6 5.9 Chloride Level 102 98 Carbon Dioxide Level 27.5 26.8 Anion Gap 9 9 White Blood Count 5.0 Red Blood Count 3.25 Hemoglobin 10.5 Hematocrit 31.3 Mean Corpuscular Volume 96.1 Mean Corpuscular Hemoglobin 32.1 Mean Corpuscular Hemoglobin Concent 33.4 Red Cell Distribution Width 14.7 Platelet Count 183 Mean Platelet Volume 8.6 Blood Urea Nitrogen 30 Creatinine 12.60 Random Glucose 92 Calcium Level 10.1 Estimat Glomerular Filtration Rate 5 (Pilar Bravo) Result Diagram: 04/10/1751204/10/17512 Assessment and Plan Problem List: (1) ESRD (end stage renal disease) on dialysis ICD Codes: N18.6 - End stage renal disease; Z99.2 - Dependence on renal dialysis Plan: Seen during dialysis today on a 1K, BFR 350, 3L UF Using Permcath for HD. Has existing outpatient HD arrangements for Saturday High protein diet encouraged (2) Hyperkalemia, diminished renal excretion ICD Codes: E87.5 - Hyperkalemia Plan: Dialysis on a 1K today (3) HTN (hypertension) ICD Codes: I10 - Essential (primary) hypertension Plan: Home medications have been resumed (4) AVF (arteriovenous fistula) ICD Codes: I77.0 - Arteriovenous fistula, acquired Plan: s/p revision, some edema is present Advised to elevate RUE Protect from injury, invasive procedures Follow up with vascular (5) Metabolic bone disease ICD Codes: E88.9 - Metabolic disorder, unspecified; M90.80 - Osteopathy in diseases classified elsewhere, unspecified site Plan: On Renvela with meals Also on Sensipar for secondary hyperparathyroidism (Pilar Bravo) Assessment and Plan patient was seen and examined. Seen during dialysis. Seen on 1K, he can be discharged from renal standpoint after dialysis. (Johann Oconnor MD) Pilar Bravo Apr 10, 2017 09:12 Johann Oconnor MD Apr 10, 2017 10:06
--- NOTE | 2017-04-10 09:28 | PD.VS.PN ---
Subjective POD #: 1 Procedure(s): R brach-ax with PTFE Subjective/Hospital Course Pt out of bed this am ambulating w/o complaints Pain controlled Pt w/ R UE swelling Pt denied hand pain Incision I/C/D w/o erythema. swelling or drainage Objective Vitals/I&O Date Time Temp Pulse Resp B/P (MAP) Pulse Ox O2 Delivery O2 Flow Rate FiO2 04/10/17 08:00 82 04/10/17 07:32 97.5 79 18 115/63 (80) 96 04/10/17 07:00 83 04/10/17 06:00 89 04/10/17 05:00 80 04/10/17 04:00 83 04/10/17 03:00 97.1 99 16 125/61 (82) 96 04/10/17 03:00 90 04/10/17 02:00 97 04/10/17 01:00 106 04/10/17 00:00 105 04/09/17 23:51 18 04/09/17 23:00 97.7 111 16 142/81 (101) 96 04/09/17 23:00 122 04/09/17 22:00 96 04/09/17 21:00 98 04/09/17 20:00 92 04/09/17 19:00 99 04/09/17 19:00 97.1 100 16 182/88 (119) 94 04/09/17 18:00 94 04/09/17 17:00 92 04/09/17 16:24 97.8 82 18 169/95 (119) 96 04/09/17 16:00 82 04/09/17 15:30 97.5 85 16 151/82 (105) 95 Room Air 04/09/17 15:15 88 16 150/85 (106) 94 Room Air 04/09/17 15:00 86 15 154/80 (104) 95 Room Air 04/09/17 14:55 15 04/09/17 14:45 87 15 159/76 (103) 95 Room Air 04/09/17 14:30 90 15 150/74 (99) 94 Room Air 04/09/17 14:24 97.3 96 18 152/74 (100) 100 Simple Mask 7 04/09/17 11:30 98.2 96 20 160/98 (118) 99 204/10/17 04/10/17 07:00 15:00 23:00 Intake Total 480 ml Balance 480 ml Exam: GENERAL: A&OX3,NAD,GCS15 SKIN: UE Warm and dry w/ motor intact HEAD: Normocephalic. EYES: No scleral icterus. No injection or drainage. R UE swollen Pt denied hand pain Palpable R Radial pulse noted Audible thrill near R UE AVF Laboratory Laboratory Tests Test 04/09/17 11:20 04/10/17 05:13 Sodium Level 138 134 Potassium Level 4.6 5.9 Chloride Level 102 98 Carbon Dioxide Level 27.5 26.8 Anion Gap 9 9 White Blood Count 5.0 Red Blood Count 3.25 Hemoglobin 10.5 Hematocrit 31.3 Mean Corpuscular Volume 96.1 Mean Corpuscular Hemoglobin 32.1 Mean Corpuscular Hemoglobin Concent 33.4 Red Cell Distribution Width 14.7 Platelet Count 183 Mean Platelet Volume 8.6 Blood Urea Nitrogen 30 Creatinine 12.60 Random Glucose 92 Calcium Level 10.1 Estimat Glomerular Filtration Rate 5 Assessment and Plan Assessment: (1) AVF (arteriovenous fistula) (2) ESRD (end stage renal disease) on dialysis Plan Pt SP R UE brach-ax with PTFE Doing well with R UE swelling Pt w/o hand pain UE warm with motor intact Pt w/ palpable distal pulses Incision I/C/D w/o erythema/drainage Plan May apply an michaelle wrap (lightly) to R UE for swelling Pt clear for D/C post HD Arranged out pt f/u in 1W Tiffani Land [facility] [phone] Discharge Planning Today post HD Tiffani Land Apr 10, 2017 09:28
--- NOTE | 2017-04-10 09:34 | PD.VS.DC ---
Discharge Summary Admission Date: Apr 09, 2017 at 13:48 Discharge Date: Apr 10, 2017 Admission Diagnosis: (1) ESRD (end stage renal disease) on dialysis (2) AVF (arteriovenous fistula) Discharge Diagnosis: (1) AVF (arteriovenous fistula) ICD Codes: I77.0 - Arteriovenous fistula, acquired (2) ESRD (end stage renal disease) on dialysis ICD Codes: N18.6 - End stage renal disease; Z99.2 - Dependence on renal dialysis Brief History from admission 47 yo male with ESRD, on HD via R chest catheter. Failed L UE access. No other autogenous options Procedure(s): R brach-ax with PTFE Significant Findings GENERAL: A&OX3,NAD,GCS15 SKIN: UE Warm and dry w/ motor intact HEAD: Normocephalic. EYES: No scleral icterus. No injection or drainage. R UE swollen Pt denied hand pain Palpable R Radial pulse noted Audible thrill near R UE AVF Laboratory Tests Test 04/09/17 11:20 04/10/17 05:13 Red Blood Count 3.25 MIL/MM3 (4.50-5.90) Hemoglobin 10.5 GM/DL (13.0-17.0) Hematocrit 31.3 % (39.0-51.0) Blood Urea Nitrogen 30 MG/DL (7-18) Creatinine 12.60 MG/DL (0.60-1.30) Sodium Level 134 MEQ/L (136-145) Potassium Level 5.9 MEQ/L (3.5-5.1) Estimat Glomerular Filtration Rate 5 ML/MIN (>89) Hospital Course: 47 yo male with ESRD, on HD via R chest catheter. Hx of Failed L UE access w/ No other autogenous options Pt s/p R brach-ax with PTFE POD 1 Pt out of bed this am ambulating w/o complaints Pain controlled Pt w/ R UE swelling Pt denied hand pain Incision I/C/D w/o erythema. swelling or drainage Pt advised to apply a light michaelle wrap to R UE while swelling is present Pt clear for D/C post HD Arranged out pt f/u in 1W Allergies Coded Allergies Type Severity Reaction Last Updated Verified No Known Allergies Allergy Unknown 04/09/17 Yes 04/08/17 04/08/17 04/09/17 04/09/17 04/10/17 04/10/17 06:00 18:00 06:00 18:00 06:00 18:00 Intake Total 1490 ml 480 ml Output Total 650 ml Balance 840 ml 480 ml Intake Oral 840 ml 480 ml Other 650 ml Output Urine Total 600 ml Estimated Blood Loss 50 ml # Voids 3 # Bowel Movements 0 Laboratory Tests Test 04/09/17 11:20 04/10/17 05:13 Sodium Level 138 MEQ/L 134 MEQ/L Potassium Level 4.6 MEQ/L 5.9 MEQ/L Chloride Level 102 MEQ/L 98 MEQ/L Carbon Dioxide Level 27.5 MEQ/L 26.8 MEQ/L Anion Gap 9 MEQ/L 9 MEQ/L White Blood Count 5.0 TH/MM3 Red Blood Count 3.25 MIL/MM3 Hemoglobin 10.5 GM/DL Hematocrit 31.3 % Mean Corpuscular Volume 96.1 FL Mean Corpuscular Hemoglobin 32.1 PG Mean Corpuscular Hemoglobin Concent 33.4 % Red Cell Distribution Width 14.7 % Platelet Count 183 TH/MM3 Mean Platelet Volume 8.6 FL Blood Urea Nitrogen 30 MG/DL Creatinine 12.60 MG/DL Random Glucose 92 MG/DL Calcium Level 10.1 MG/DL Estimat Glomerular Filtration Rate 5 ML/MIN Orders Procedure Category Date Status Time Type And Screen BBK 04/09/17 Complete 10:52 Protamine Sulfate Inj MED 04/09/17 Complete (Protamine Sulfate 10:52 Heparin Inj (Heparin MED 04/09/17 Complete Inj) 10:53 Bupivacaine Pf 0.5% MED 04/09/17 Complete Inj (Marcaine Pf 0.5 10:53 Vancomycin Inj MED 04/09/17 Complete (Vancomycin Inj) 10:53 Heparin-Ns/Pf Inj MED 04/09/17 Complete (Heparin-Ns/Pf Inj) 10:53 Thrombin Top [place] MED 04/09/17 Complete (Thrombin Top [place]) 10:54 Electrolyte Panel LAB 04/09/17 Complete (Lytes) 11:27 Famotidine Inj MED 04/09/17 Complete (Pepcid Inj) 11:31 Lactated Ringer's MED 04/09/17 In Process 1000 Ml Inj (Lr 1000 M 12:30 Sodium Chlorid 0.9% MED 04/09/17 In Process 500 Ml Inj (Ns 500 M 12:30 Metoprolol Tartrate MED 04/09/17 In Process (Lopressor) 12:30 Povidone Iod 5% MED 04/09/17 In Process Antisepsis Kit 12:30 Chlorhexidine 2% MED 04/09/17 In Process Cloth (Chlorhexidine 12:30 Place In Observation ADMITTING 04/09/17 Transmitted Code Status CODE 04/09/17 Transmitted 13:45 Vital Signs (Adult) MYRON 04/09/17 Complete 13:45 Franchise Development Manager / MYRON 04/09/17 In Process Telemetry 13:45 Activity Oob Ad Lucie MYRON 04/09/17 In Process 13:45 Precautions MYRON 04/09/17 In Process 13:45 Diet Heart Healthy DIET 04/09/17 Transmitted Lunch Basic Metabolic Panel LAB 04/10/17 Complete (Bmp) 06:00 Consult Nephrology CONS 04/09/17 Transmitted Aspirin Chew (Aspirin MED 04/10/17 In Process Chew) 09:00 Famotidine (Pepcid) MED 04/09/17 In Process 21:00 Scd Bilateral/Knee MYRON 04/09/17 In Process High 13:45 Docusate Sodium-Senna MED 04/09/17 In Process (Ayse-Colace) 21:00 Sennosides (Senokot) MED 04/09/17 In Process 13:45 Bisacodyl Supp MED 04/09/17 In Process (Dulcolax Supp) 13:45 Lactulose Liq MED 04/09/17 In Process (Lactulose Liq) 13:45 Oxycodone (Roxicodone) MED 04/09/17 In Process 13:45 Hydromorphone MED 04/09/17 In Process (Dilaudid) 13:45 Amlodipine (Norvasc) MED 04/10/17 In Process 09:00 Vitamin B Cmplx-Vit MED 04/10/17 In Process C-Folic Ac (Nephroca 09:00 Cinacalcet (Sensipar) MED 04/10/17 In Process 09:00 Clonidine (Catapres) MED 04/09/17 In Process 21:00 Docusate Sodium MED 2/27/18 In Process (Colace) 13:45 Metoprolol Succinate MED 04/10/17 In Process Er (Toprol Xl) 09:00 Ramipril (Altace) MED 04/09/17 In Process 21:00 Sevelamer (Renvela) MED 04/09/17 In Process 18:00 (Hub Use Only)Inp Phy CONS 04/09/17 Transmitted Cons/Ref *Morphine Inj MED 04/09/17 Complete (*Morphine Inj 14:50 Heparin Inj (Heparin MED 04/09/17 Complete Inj) 15:11 Misc Nursing MED 04/09/17 In Process Information 15:15 Sodium Chloride 0.9% MED 04/09/17 In Process Flush (Ns Flush) 15:15 Heparin Inj (Heparin MED 04/09/17 In Process Inj) 15:15 Fentanyl Inj MED 04/09/17 Complete (Fentanyl Inj) 15:35 Morphine Inj MED 04/09/17 In Process (Morphine Inj) 13:45 Heparin Inj (Heparin MED 04/10/17 In Process Inj) 13:30 Class Iv Pacu Ea 30 [facility] 04/09/17 Complete MIN General/Pacu [facility] 04/09/17 Complete Post Anesthesia Oxygen [facility] 04/09/17 Complete Metoprolol Tartrate MED 04/09/17 In Process Inj (Lopressor Inj) 21:45 Cbc No Diff, Includes LAB 04/10/17 Complete Plts 04:00 Blood Flow Rate MYRON 04/10/17 In Process 08:15 Dialysate Flow Rate MYRON 04/10/17 In Process 08:15 Dialyzer MYRON 04/10/17 In Process 08:15 Concentrate MYRON 04/10/17 In Process 08:15 Acid Concentrate MYRON 04/10/17 In Process 08:15 Length Of Dialysis MYRON 04/10/17 In Process 08:15 Frequency Of Dialysis MYRON 04/10/17 In Process 08:15 Dialysis Obtain MYRON 04/10/17 In Process 08:15 Needle Size MYRON 04/10/17 In Process 08:15 Dialysis Schedule MYRON 04/10/17 In Process 08:15 Resp Oxygen Wang C RSP 04/10/17 Logged Titrat 1-4 L Dialysis Weight MYRON 04/10/17 In Process 08:15 ^ Obtain As Needed MYRON 04/10/17 In Process 08:15 Sodium Chlor 0.9% MED 04/10/17 In Process 1000 Ml Inj (Ns 1000 M 08:15 Heparin Inj (Heparin MED 04/10/17 In Process Inj) 08:15 Sodium Chlor 0.9% MED 04/10/17 In Process 1000 Ml Inj (Ns 1000 M 08:15 Sodium Chlor 0.9% MED 04/10/17 In Process 1000 Ml Inj (Ns 1000 M 08:15 Mannitol Inj MED 04/10/17 In Process (Mannitol Inj) 08:15 Albumin 25% Inj MED 04/10/17 In Process (Albumin 25% Inj) 08:15 Sodium Chloride 0.9% MED 04/10/17 In Process Flush (Ns Flush) 08:15 Heparin Inj (Heparin MED 04/10/17 In Process Inj) 08:15 Gentamicin Inj MED 04/10/17 In Process (Gentamicin Inj) 08:15 Ondansetron Inj MED 04/10/17 In Process (Zofran Inj) 08:15 Acetaminophen MED 04/10/17 In Process (Tylenol) 08:15 Diphenhydramine MED 04/10/17 In Process (Benadryl) 08:15 Nitroglycerin Sl MED 04/10/17 In Process (Nitrostat Sl) 08:15 Clonidine (Catapres) MED 04/10/17 In Process 08:15 Epoetin Leodan Inj MED 04/10/17 In Process (Epogen Inj) 08:15 Gelatin 12 Mm/7 Mm MED 04/10/17 In Process Top (Gelfoam 12 Mm/7 08:15 Phosphorus (Po4) LAB 04/10/17 Logged 08:16 Attending Discharge DISCHARGE 04/10/17 Transmitted Order Vital Signs Date Time Temp Pulse Resp B/P (MAP) Pulse Ox O2 Delivery O2 Flow Rate FiO2 04/10/17 08:00 82 04/10/17 07:32 97.5 79 18 115/63 (80) 96 04/10/17 07:00 83 04/10/17 06:00 89 04/10/17 05:00 80 04/10/17 04:00 83 04/10/17 03:00 97.1 99 16 125/61 (82) 96 04/10/17 03:00 90 04/10/17 02:00 97 04/10/17 01:00 106 04/10/17 00:00 105 04/09/17 23:51 18 04/09/17 23:00 97.7 111 16 142/81 (101) 96 04/09/17 23:00 122 04/09/17 22:00 96 04/09/17 21:00 98 04/09/17 20:00 92 04/09/17 19:00 99 04/09/17 19:00 97.1 100 16 182/88 (119) 94 04/09/17 18:00 94 04/09/17 17:00 92 04/09/17 16:24 97.8 82 18 169/95 (119) 96 04/09/17 16:00 82 04/09/17 15:30 97.5 85 16 151/82 (105) 95 Room Air 04/09/17 15:15 88 16 150/85 (106) 94 Room Air 04/09/17 15:00 86 15 154/80 (104) 95 Room Air 04/09/17 14:55 15 04/09/17 14:45 87 15 159/76 (103) 95 Room Air 04/09/17 14:30 90 15 150/74 (99) 94 Room Air 04/09/17 14:24 97.3 96 18 152/74 (100) 100 Simple Mask 7 04/09/17 11:30 98.2 96 20 160/98 (118) 99 Discharge Condition: Good Discharge Disposition: Discharge Home Discharge Instructions: DIET May resume a Dialysis diet ACTIVITY No heavy lifting over a gallon of milk for 10 days- RIGHT upper extremity NO B/P readings/Lab draws - RIGHT upper extremity May shower NO tub baths until your incision is fully healed INCISION CARE Leave your incision open to air Do not apply any creams or ointments as it may loosen the surgical glue Call the office to report any new onset swelling, redness or drainage MEDICATIONS You may resume your home medications You were prescribed a narcotic pain medications that may cause constipation- take with an over the counter stool softener You were prescribed a narcotic pain medications that may cause drowsiness- No driving while taking your prescribed pain medication Any questions or concerns: Call [facility] at [facility] [phone] Tiffani Land Apr 10, 2017 09:34
[2017-04-10] MEDS: RAMIPRIL 5 MG CAP PO SCH (12:28)
[2017-04-10] MEDS: FAMOTIDINE 20 MG TAB PO SCH (12:28)
[2017-04-10] MEDS: SEVELAMER CARBONATE 800 MG TAB PO SCH ×2 (12:28→12:36)
[2017-04-10] MEDS: DOCUSATE SODIUM 50 MG/SENNA 8.6 MG TAB PO SCH (12:28)
[2017-04-10] MEDS: cloNIDine HCL 0.2 MG TAB PO SCH (12:29)
[2017-04-10] MEDS ORDERED: HEPARIN SODIUM - SQ 10,000 UNITS/ML VIAL SQ SCH (13:30)
[2017-04-10] MEDS ORDERED: FAMOTIDINE 20 MG TAB PO SCH (21:00)
--- NOTE | 2017-04-11 06:51 | MP ---
cc: Genaro Nunez MD DATE OF OPERATION: 04/09/2017 PREOPERATIVE DIAGNOSIS: End-stage renal disease, need for hemodialysis access. POSTOPERATIVE DIAGNOSIS: End-stage renal disease, need for hemodialysis access. PROCEDURE PERFORMED: Right brachial artery to axillary vein arteriovenous graft with PTFE. ATTENDING SURGEON: Genaro Nunez MD ANESTHESIA: General. INDICATION: Mr. Rubio is a gentleman with end-stage renal disease who has several upper extremity access attempts that have all failed. 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 He was taken to the operating room for right upper extremity graft. DESCRIPTION OF PROCEDURE: Informed consent was obtained from the patient. He was taken to the operating room and placed supine on the operating room table, and appropriate timeout was taken to ensure the patient's identity, operative site and planned procedure. The administration of a gram of vancomycin was initiated prior to skin incision and will be discontinued after a single preop dose. Vancomycin was chosen because of the patient's end-stage renal disease. Everyone in room agreed, therefore we proceeded. His right arm was prepped and draped. An incision was made over the distal aspect of the upper arm immediately proximal to the antecubitum, carried down to subcutaneous tissue with electrocautery. The brachial artery was identified and dissected free, encircled with a vessel loop. A separate incision was made in the patient's axilla, carried down to subcutaneous tissue with electrocautery. The axillary vein was identified. A tunnel was created between these 2 incisions and the PTFE was passed through this, taking caution not to twist it. The patient was systemically heparinized with 3000 units of intravenous heparin. Proximal and distal control of the brachial artery was obtained with profunda clamps, and a longitudinal arteriotomy was made with an 11 blade, extended with [place] scissors. The PTFE was spatulated and sewn end-to-side to the brachial artery with running 5-0 Prolene suture. At the completion, it was flushed and noted to be hemostatic. A Addis Softjaw clamp was placed on the PTFE and the proximal and distal control of the axillary vein was obtained with profunda clamps, and a longitudinal venotomy was made with an 11 blade, extended with Alpesh scissors. The graft was cut to an appropriate length, spatulated, and sewn end-to-side with running 5-0 Prolene suture. At the completion, it was flushed and noted to be hemostatic. There was nice thrill in the fistula and a Doppler signal at the wrist. The heparin was reversed with protamine. The wound was infiltrated with Marcaine, irrigated, made hemostatic, and closed with 2-0 Polysorb, 3-0 Polysorb, and 4-0 Monocryl. The sponge and needle counts were correct at the end of the case. I was present, scrubbed, and performed the entire procedure. MD NIK Arreaga/DE , 05:42 AM , 06:49 AM
== END 2017-04-10 15:35 | disposition home or self-care (01) ==
LOC: HSDC 10:34 → HSDI 13:48 → HCPC 15:38 → HCIS 04-10 13:50 → HCPC 04-10 13:50
PROVIDERS: ADMIT Surgery; ATTEND Surgery
DX: I13.2 Hypertensive heart and chronic kidney disease with heart failure and with stage 5 chronic kidney disease, or end stage renal disease (principal); I50.9 Heart failure, unspecified; N18.6 End stage renal disease; D63.1 Anemia in chronic kidney disease; N25.81 Secondary hyperparathyroidism of renal origin; I77.0 Arteriovenous fistula, acquired; E88.89 Other specified metabolic disorders; E87.5 Hyperkalemia; Z99.2 Dependence on renal dialysis
CPT/HCPCS: 01844; 36832; 80048; 80051; 84100; 85027; 86850; 86900; 86901; 96374; 96375; G0257; G0378; J1580; J1644; J2270; J2370; J2710; J2720; J3010; J3370; J7050; Q4081; 90935

== ENCOUNTER 2017-04-15 01:27 | Inpatient (IN) | payer MEDICARE, MEDICAID ==
[~2017-04-15] VITALS: Ht 180.3 cm; Wt 136.3 kg
[2017-04-15 02:32] VITALS: BP 125/96; PULSE 98; RESP 16; O2SAT 98
--- NOTE | 2017-04-15 02:42 | PD ---
HPI Chief Complaint: Edema Time Seen by Provider: 02:35 Travel History International Travel<30 days: No Contact w/Intl Traveler<30days: No Traveled to known affect area: No History of Present Illness HPI 47-year-old male complaining of pain and swelling right arm. Patient has history of end-stage renal disease on dialysis. Patient has dialysis Saturday and Saturday weekly. Patient had a fissure on the left arm. The fistula in the left arm fell and patient recently was seen by vascular surgeon and has a fistula placed on the right arm. Patient had a fistula placement by Dr. Nunez or 5 days ago. Patient states he has increasing pain and swelling on the right arm since then. Patient denies any fever chills. Patient denies any chest pain or shortness of breath. Patient has history hypertension. PFSH Past Medical History Arthritis: No Asthma: No Autoimmune Disease: No Blood Disorders: No Heart Rhythm Problems: No Cancer: No Cardiovascular Problems: No High Cholesterol: No Chemotherapy: No Chest Pain: Yes Congestive Heart Failure: Yes COPD: No Cerebrovascular Accident: No Diabetes: No Diminished Hearing: No Endocrine: No GERD: No Glaucoma: No Genitourinary: No Headaches: No Hepatitis: No Hiatal Hernia: No Hypertension: Yes Immune Disorder: No Kidney Stones: No Musculoskeletal: No Neurologic: No Psychiatric: No Reproductive: No Respiratory: No Immunizations Current: Yes Myocardial Infarction: No Radiation Therapy: No Renal Failure: Yes (DIALYSIS M,W,F) Seizures: No Sickle Cell Disease: No Sleep Apnea: No Thyroid Disease: No Ulcer: No Past Surgical History Abdominal Surgery: No AICD: No Body Medical Devices: AV FISTUAL LUE, VAS CATH RIGHT CHEST Cardiac Surgery: No Ear Surgery: No Endocrine Surgery: No Eye Surgery: No Genitourinary Surgery: No Gynecologic Surgery: No Insulin Pump: No Joint Replacement: No Oral Surgery: No Pacemaker: No Thoracic Surgery: No Other Surgery: Yes ( AV FISTULA LEFT UPPER ARM) Social History Alcohol Use: Yes (OCC) Tobacco Use: No Substance Use: No Allergies-Medications (Allergen,Severity, Reaction): Coded Allergies: No Known Allergies (Verified Allergy, Unknown, 04/15/17) Reported Meds & Prescriptions Reported Meds & Active Scripts Active Docusate Sodium 100 Mg Cap 100 Mg PO BID PRN Oxycodone-Acetaminophen 5-325 (Oxycodone HCl/Acetaminophen) 5 Mg-325 Mg Tablet 1 Tab PO Q6H PRN Reported Renal Vitamin (B-Complex W/ C & Folic Acid) 1 Cap 1 Cap PO DAILY If on dialysis, take after treatment. Renvela (Sevelamer Carbonate) 800 Mg Tab 800 Mg PO TID Toprol XL (Metoprolol Succinate) 100 Mg Tab 100 Mg PO DAILY Altace (Ramipril) 10 Mg Cap 10 Mg PO BID Clonidine (Clonidine HCl) 0.2 Mg Tab 0.2 Mg PO BID Sensipar (Cinacalcet) 30 Mg Tab 30 Mg PO DAILY Amlodipine (Amlodipine Besylate) 10 Mg Tab 10 Mg PO DAILY Review of Systems General / Constitutional: No: Fever Eyes: No: Visual changes HENT: No: Headaches Cardiovascular: No: Chest Pain or Discomfort Respiratory: No: Shortness of Breath Gastrointestinal: No: Abdominal Pain Genitourinary: No: Dysuria Musculoskeletal: Positive: Edema, Pain Skin: No Rash Neurologic: No: Weakness Psychiatric: No: Depression Endocrine: No: Polydipsia Hematologic/Lymphatic: No: Easy Bruising Physical Exam Narrative GENERAL: Well-nourished, well-developed patient. SKIN: Focused skin assessment warm/dry. HEAD: Normocephalic. EYES: No scleral icterus. No injection or drainage. NECK: Supple, trachea midline. No JVD or lymphadenopathy. CARDIOVASCULAR: Regular rate and rhythm without murmurs, gallops, or rubs. RESPIRATORY: Breath sounds equal bilaterally. No accessory muscle use. GASTROINTESTINAL: Abdomen soft, non-tender, nondistended. MUSCULOSKELETAL: No cyanosis, or edema. BACK: Nontender without obvious deformity. No CVA tenderness. Examination of the right arm shows edema redness swelling tenderness and increase in heat on the right upper arm and forearm. No induration noted. Full range of motion of the fingers. Data Data Last Documented VS Vital Signs Date Time Temp Pulse Resp B/P (MAP) Pulse Ox O2 Delivery O2 Flow Rate FiO2 04/15/17 02:32 98 16 125/96 (106) 98 Room Air Orders Orders Complete Blood Count With Diff (04/15/17 02:35) Comprehensive Metabolic Panel (04/15/17 02:35) Prothrombin Time / Inr (Pt) (04/15/17 02:35) Act Partial Throm Time (Ptt) (04/15/17 02:35) Blood Culture (04/15/17 02:35) Magnesium (Mg) (04/15/17 02:35) Phosphorus (Po4) (04/15/17 02:35) Chest, Single Ap (04/15/17 02:35) Iv Access Insert/Monitor (04/15/17 02:35) Ecg Monitoring (04/15/17 02:35) Oximetry (04/15/17 02:35) Lactic Acid (04/15/17 02:35) Us Arm Soft Tissue (04/15/17 ) Vancomycin Inj (Vancomycin Inj) (04/15/17 03:45) Piperacil-Tazo 2.25 Gm Premix (Zosyn 2.2 (04/15/17 03:45) Labs Laboratory Tests Test 04/15/17 02:50 White Blood Count 5.4 TH/MM3 Red Blood Count 3.39 MIL/MM3 Hemoglobin 10.9 GM/DL Hematocrit 32.4 % Mean Corpuscular Volume 95.6 FL Mean Corpuscular Hemoglobin 32.3 PG Mean Corpuscular Hemoglobin Concent 33.8 % Red Cell Distribution Width 14.6 % Platelet Count 200 TH/MM3 Mean Platelet Volume 8.8 FL Neutrophils (%) (Auto) 61.6 % Lymphocytes (%) (Auto) 17.5 % Monocytes (%) (Auto) 15.5 % Eosinophils (%) (Auto) 4.1 % Basophils (%) (Auto) 1.3 % Neutrophils # (Auto) 3.3 TH/MM3 Lymphocytes # (Auto) 0.9 TH/MM3 Monocytes # (Auto) 0.8 TH/MM3 Eosinophils # (Auto) 0.2 TH/MM3 Basophils # (Auto) 0.1 TH/MM3 CBC Comment DIFF FINAL Differential Comment Prothrombin Time 10.0 SEC Prothromb Time International Ratio 1.0 RATIO Activated Partial Thromboplast Time 28.5 SEC Blood Urea Nitrogen 53 MG/DL Creatinine 13.49 MG/DL Random Glucose 91 MG/DL Total Protein 8.1 GM/DL Albumin 3.5 GM/DL Calcium Level 9.6 MG/DL Phosphorus Level 6.7 MG/DL Magnesium Level 2.4 MG/DL Alkaline Phosphatase 93 U/L Aspartate Amino Transf (AST/SGOT) 9 U/L Alanine Aminotransferase (ALT/SGPT) 12 U/L Total Bilirubin 0.3 MG/DL Sodium Level 133 MEQ/L Potassium Level 5.3 MEQ/L Chloride Level 97 MEQ/L Carbon Dioxide Level 28.0 MEQ/L Anion Gap 8 MEQ/L Estimat Glomerular Filtration Rate 5 ML/MIN Lactic Acid Level 1.2 mmol/L MDM Medical Decision Making Medical Screen Exam Complete: Yes Emergency Medical Condition: Yes Interpretation(s) 3:34 AM. CBC WBC 5.4. Hemoglobin 10.9 hematocrit 32.4. Sodium 133. Potassium 5.3. Chloride 97. BUN 53. Creatinine 13.49. GFR 5. Lactic acid 1.2. 3:53 AM. Ultrasound of extremities shows diffuse soft tissue edema and fluid collection. Differential Diagnosis Differential diagnosis including cellulitis, abscess, DVT. Narrative Course 47-year-old male with increasing redness swelling tenderness right arm. Status post fistula placement 5 days ago. Vancomycin 1 g IV given. Zosyn 2.25 g IV given. Fermin Yepez MD Apr 15, 2017 02:42
[2017-04-15 03:03] LABS: AUTOMATED NEUTROPHIL # 3.3 TH/MM3 (1.8-7.7); BASOPHIL # 0.1 TH/MM3 (0-0.2); BASOPHIL % 1.3 % (0.0-2.0); EOSINOPHIL # 0.2 TH/MM3 (0-0.4); EOSINOPHIL % 4.1 % (0.0-4.0); HEMATOCRIT 32.4 % (39.0-51.0); HEMOGLOBIN 10.9 GM/DL (13.0-17.0); LYMPH % 17.5 % (9.0-44.0); LYMPHOCYTE # 0.9 TH/MM3 (1.0-4.8); MEAN CELL VOLUME 95.6 FL (80.0-100.0); MEAN CORPUSCULAR HEMOGLOBIN 32.3 PG (27.0-34.0); MEAN CORPUSCULAR HGB CONC 33.8 % (32.0-36.0); MEAN PLATELET VOLUME 8.8 FL (7.0-11.0); MONO % 15.5 % (0.0-8.0); MONOCYTE # 0.8 TH/MM3 (0-0.9); NEUT % 61.6 % (16.0-70.0); PLATELET COUNT 200 TH/MM3 (150-450); RED BLOOD COUNT 3.39 MIL/MM3 (4.50-5.90); RED CELL DISTRIBUTION WIDTH 14.6 % (11.6-17.2); WHITE BLOOD COUNT 5.4 TH/MM3 (4.0-11.0)
[2017-04-15 03:22] LABS: ALBUMIN 3.5 GM/DL (3.4-5.0); ALT (GPT) 12 U/L (12-78); AST (GOT) 9 U/L (15-37); BLOOD UREA NITROGEN 53 MG/DL (7-18); CALCIUM 9.6 MG/DL (8.5-10.1); CHLORIDE 97 MEQ/L (98-107); GLOMERULAR FILTRATION RATE 5 ML/MIN (>89); GLUCOSE,RANDOM 91 MG/DL (74-106); MAGNESIUM 2.4 MG/DL (1.5-2.5); PHOSPHORUS 6.7 MG/DL (2.5-4.9); SODIUM (NA) 133 MEQ/L (136-145)
[2017-04-15 03:24] LABS: ALKALINE PHOSPHATASE 93 U/L (45-117); TOTAL BILIRUBIN ADULT 0.3 MG/DL (0.2-1.0); TOTAL PROTEIN 8.1 GM/DL (6.4-8.2)
[2017-04-15 03:29] LABS: CREATININE 13.49 MG/DL (0.60-1.30)
--- NOTE | 2017-04-15 03:44 | RADRPT ---
EXAM DATE/TIME: 04/15/2017 02:58 [facility] COMPARISON: No previous studies available for comparison. INDICATIONS : Abscess. MEDICAL HISTORY : Congestive heart failure. Hypertension. Chest pain. Dyspnea. Renal failure. SURGICAL HISTORY : Bilateral AV fistula. ENCOUNTER: Initial ACUITY: 4-6 days PAIN SCORE: 10/10 LOCATION: Right arm. AREA EVALUATED: Right arm. FINDINGS: There is diffuse subcutaneous edema with hyperemia of the surrounding soft tissues in the right arm a nd forearm. There is a complex appearing fluid collection measuring approximately 3.7 x 1.1 x 3.2 cm surrounding a blood vessel in the mid arm. CONCLUSION: Diffuse subcutaneous edema of the right arm. In the right mid arm there is a complex collection that consists of partial fluid measuring up to 3.7 cm. This finding is nonspecific and could represent an infected or sterile complex fluid collection. Giovanni River MD on April 15, 2017 at 3:38 Board Certified Radiologist. This report was verified electronically.
[2017-04-15] MEDS ORDERED: VANCOMYCIN INJ 1,000 MG in SODIUM CHLOR 0.9% 250 ML INJ 250 ML IV ONE (03:45)
[2017-04-15] MEDS ORDERED: PIPERACIL-TAZO 2.25 GM PREMIX 50 ML IV ONE (03:45)
--- NOTE | 2017-04-15 03:46 | RADRPT ---
EXAM DATE/TIME: 04/15/2017 03:17 [facility] COMPARISON: CHEST SINGLE AP, August 06, 2013, 5:43. INDICATIONS : Right arm fistula surgery and now painful and swollen. MEDICAL HISTORY : Congestive heart failure. Hypertension Renal failure, chronic. SURGICAL HISTORY : A-V fistula right arm ENCOUNTER: Initial ACUITY: 1 day PAIN SCORE: 0/10 LOCATION: Bilateral chest FINDINGS: Portable AP view of the chest demonstrates a normal-sized cardiac silhouette. Right IJ vascular león ter distal tip is near the cavoatrial junction. No effusion, consolidation, or pneumothorax is identi fied. Vascular stent overlies the left axilla. EKG lines overlie the patient. CONCLUSION: No acute cardiopulmonary abnormality is identified. Giovanni River MD on April 15, 2017 at 3:43 Board Certified Radiologist. This report was verified electronically.
[2017-04-15] MEDS ORDERED: SENNOSIDES 8.6 MG TAB PO PRN (04:15)
[2017-04-15] MEDS ORDERED: MAGNESIUM HYDROXIDE SUSP 30 ML CUP PO PRN (04:15)
[2017-04-15] MEDS ORDERED: BISACODYL 10 MG SUPP RECTAL PRN (04:15)
[2017-04-15] MEDS ORDERED: LACTULOSE SYRUP 20 GM/30 ML CUP PO PRN (04:15)
[2017-04-15] MEDS ORDERED: ONDANSETRON HCL 4 MG/2 ML VIAL IVP PRN (04:15)
[2017-04-15] MEDS ORDERED: ACETAMINOPHEN 325 MG TAB PO PRN ×2 (04:15→08:30)
--- NOTE | 2017-04-15 04:40 | HHI.HP ---
[facility] Vikash Hedrick MD Admission Diagnosis Right arm cellulitis. Right arm abscess. Diagnoses: (1) Abscess Diagnosis: Principal (2) ESRD (end stage renal disease) on dialysis Diagnosis: Principal (3) HTN (hypertension) Diagnosis: Principal Travel History International Travel<30 Days: No Contact w/Intl Traveler <30 Da: No Traveled to Known Affected Are: No History of Present Illness This is a 47-year-old male with a PMH of HTN and ESRD on HD M/W/ who presented to the ER w/ complaints of right arm swelling. Previous LUE AV Fistula failure , therefore underwent Right Vas-Cath Placement in addition to RUE AV graft by Dr. Nunez on 04/09/17. Per pt he's had RUE swelling since procedure, however now progressively worse. Pain is constant, severe, 9/10, non-radiating, worse w / movement. Denies fever or chills. On arrival, BP 125/96, HR 98, O2 sat 98% on RA. CBC essentially at baseline. Chemistry at baseline, creatinine 13.49, previously 12.60 on 04/10/17. Lactic Acid normal. INR 1.0. CXR with no acute findings. IUE Doppler with diffuse ceftazidime of right arm, complex collection consisting of partial fluid right mid arm, nonspecific possible infection. S/p Blood Cultures, Vanc/Zosyn in ER. Review of Systems Except as stated in HPI: all other systems reviewed are Neg ROS: 14 point review of systems otherwise negative. Past Family Social History Past Medical History PMH: HTN and ESRD on HD M/W/ Past Surgical History PAST SURGICAL HISTORY: LUE AV Fistula, Right Vas Catheter, RUE AV Graft Allergies: Coded Allergies: No Known Allergies (Verified Allergy, Unknown, 04/15/17) Family History PAST FAMILY HISTORY: Reviewed. No h/o DM or CAD Social History PAST SOCIAL HISTORY: Negative for alcohol, tobacco or drugs. Physical Exam Vital Signs Vital Signs Date Time Temp Pulse Resp B/P (MAP) Pulse Ox O2 Delivery O2 Flow Rate FiO2 04/15/17 02:32 98 16 125/96 (106) 98 Room Air Physical Exam PE: GENERAL: Pleasant middle-aged black male in no acute distress. HEENT: PERRLA, EOMI. No scleral icterus or conjunctival pallor. No lid lag or facial droop. CARDIOVASCULAR: Regular rate and rhythm. No obvious murmurs to auscultation. No chest tenderness to palpation. RESPIRATORY: No obvious rhonchi or wheezing. Clear to auscultation. Breath sounds equal bilaterally. GASTROINTESTINAL: Abdomen soft, non-tender, nondistended. BS normal. MUSCULOSKELETAL: Extremities without clubbing, cyanosis, or edema. No obvious deformities. RUE w/ significant erythema/induration right upper arm, decreased ROM due to swelling. Pulses intact. NEUROLOGICAL: Awake, alert and oriented x4. No focal neurologic deficits. Moving both upper and lower extremities spontaneously. Laboratory Laboratory Tests Test 04/15/17 02:50 White Blood Count 5.4 Red Blood Count 3.39 Hemoglobin 10.9 Hematocrit 32.4 Mean Corpuscular Volume 95.6 Mean Corpuscular Hemoglobin 32.3 Mean Corpuscular Hemoglobin Concent 33.8 Red Cell Distribution Width 14.6 Platelet Count 200 Mean Platelet Volume 8.8 Neutrophils (%) (Auto) 61.6 Lymphocytes (%) (Auto) 17.5 Monocytes (%) (Auto) 15.5 Eosinophils (%) (Auto) 4.1 Basophils (%) (Auto) 1.3 Neutrophils # (Auto) 3.3 Lymphocytes # (Auto) 0.9 Monocytes # (Auto) 0.8 Eosinophils # (Auto) 0.2 Basophils # (Auto) 0.1 CBC Comment DIFF FINAL Differential Comment Prothrombin Time 10.0 Prothromb Time International Ratio 1.0 Activated Partial Thromboplast Time 28.5 Blood Urea Nitrogen 53 Creatinine 13.49 Random Glucose 91 Total Protein 8.1 Albumin 3.5 Calcium Level 9.6 Phosphorus Level 6.7 Magnesium Level 2.4 Alkaline Phosphatase 93 Aspartate Amino Transf (AST/SGOT) 9 Alanine Aminotransferase (ALT/SGPT) 12 Total Bilirubin 0.3 Sodium Level 133 Potassium Level 5.3 Chloride Level 97 Carbon Dioxide Level 28.0 Anion Gap 8 Estimat Glomerular Filtration Rate 5 Lactic Acid Level 1.2 Date/Time Source Procedure Growth Status 04/15/17 02:50 Blood Peripheral Aerobic Blood Culture Pending Received 04/15/17 02:50 Blood Peripheral Anaerobic Blood Culture Pending Received Result Diagram: 04/15/1724904/15/17249 Caprini VTE Risk Assessment Caprini VTE Risk Assessment: No/Low Risk (score <= 1) Caprini Risk Assessment Model Point Value = 1 Point Value = 2 Point Value = 3 Point Value = 5 Age 41-60 Minor surgery BMI > 25 kg/m2 Swollen legs Varicose veins or History of unexplained or recurrent spontaneous Oral contraceptives or hormone replacement Sepsis (< 1 month) Serious lung disease, including pneumonia (< 1 month) Abnormal pulmonary function Acute myocardial infarction Congestive heart failure (< 1 month) History of inflammatory bowel disease Medical patient at bed rest Age 61-74 Arthroscopic surgery Major open surgery (> 45 min) Laparoscopic surgery (> 45 min) Malignancy Confined to bed (> 72 hours) Immobilizing plaster cast Central venous access Age >= 75 History of VTE Family history of VTE Factor V Leiden Prothrombin [id number] Lupus anticoagulant Anticardiolipin antibodies Elevated serum homocysteine Heparin-induced thrombocytopenia Other congenital or acquired thrombophilia Stroke (< 1 month) Elective arthroplasty Hip, pelvis, or leg fracture Acute spinal cord injury (< 1 month) Prophylaxis Regimen Total Risk Factor Score Risk Level Prophylaxis Regimen 0-1 Low Early ambulation 2 Moderate Order ONE of the following: *Sequential Compression Device (SCD) *Heparin 5000 units SQ BID 3-4 Higher Order ONE of the following medications: *Heparin 5000 units SQ TID *Enoxaparin/Lovenox 40 mg SQ daily (WT < 150 kg, CrCl > 30 mL/min) *Enoxaparin/Lovenox 30 mg SQ daily (WT < 150 kg, CrCl > 10-29 mL/min) *Enoxaparin/Lovenox 30 mg SQ BID (WT < 150 kg, CrCl > 30 mL/min) AND/OR *Sequential Compression Device (SCD) 5 or more Highest Order ONE of the following medications: *Heparin 5000 units SQ TID (Preferred with Epidurals) *Enoxaparin/Lovenox 40 mg SQ daily (WT < 150 kg, CrCl > 30 mL/min) *Enoxaparin/Lovenox 30 mg SQ daily (WT < 150 kg, CrCl > 10-29 mL/min) *Enoxaparin/Lovenox 30 mg SQ BID (WT < 150 kg, CrCl > 30 mL/min) AND *Sequential Compression Device (SCD) Assessment and Plan Problem List: (1) Abscess ICD Code: L02.91 - Cutaneous abscess, unspecified (2) ESRD (end stage renal disease) on dialysis ICD Code: N18.6 - End stage renal disease; Z99.2 - Dependence on renal dialysis (3) HTN (hypertension) ICD Code: I10 - Essential (primary) hypertension Assessment and Plan A/P: 1. Abscess: concern for post-surgical abscess at recent site of RUE AV Graft, progressive swelling since surgery 04/09/17. Doppler RUE w/ diffuse subcutaneous edema of right arm, complex collection right mid arm possibly infection. S/p Blood Cultures, Vanc/Zosyn in ER. Follow up cultures, continue w / IV Abx. Consult Vascular Sx for further evaluation/possible intervention. 2. ESRD on HD: M/W/F via Right Vas-Cath, follows w/ Dr. Hedrick, will consult to resume HD and to manage Vanc dosing. Resume home medications. 3. HTN: Resume home medications, on multiple antihypertensives, monitor BP. 4. DVT Prophylaxis: SCD/Teds. 5. Social work for d/c planning as needed. 6. Case discussed w/ ER physician at length, labs/records/imaging reviewed by me. Physician Certification 2 Midnight Certification Type: Admission for Inpatient Services Order for Inpatient Services The services are ordered in accordance with Medicare regulations or non- Medicare payer requirements, as applicable. In the case of services not specified as inpatient-only, they are appropriately provided as inpatient services in accordance with the 2-midnight benchmark. Estimated LOS (days): 2 days is the estimated time the patient will need to remain in the hospital, assuming treatment plan goals are met and no additional complications. Post-Hospital Plan: Not yet determined Roxana Cho MD Apr 15, 2017 04:40
--- NOTE | 2017-04-15 08:02 | PD.VS.PN ---
Subjective Subjective/Hospital Course Pt with marked edema R UE Patent AVF duplex shows diffuse edema Objective Vitals/I&O Date Time Temp Pulse Resp B/P (MAP) Pulse Ox O2 Delivery O2 Flow Rate FiO2 04/15/17 02:32 98 16 125/96 (106) 98 Room Air 04/15/17 04/15/17 04/15/17 07:00 15:00 23:00 Intake Total 300 ml Balance 300 ml Physical Exam R UE 4+ edematous motor intact incisions ok Laboratory Laboratory Tests Test 04/15/17 02:50 White Blood Count 5.4 Red Blood Count 3.39 Hemoglobin 10.9 Hematocrit 32.4 Mean Corpuscular Volume 95.6 Mean Corpuscular Hemoglobin 32.3 Mean Corpuscular Hemoglobin Concent 33.8 Red Cell Distribution Width 14.6 Platelet Count 200 Mean Platelet Volume 8.8 Neutrophils (%) (Auto) 61.6 Lymphocytes (%) (Auto) 17.5 Monocytes (%) (Auto) 15.5 Eosinophils (%) (Auto) 4.1 Basophils (%) (Auto) 1.3 Neutrophils # (Auto) 3.3 Lymphocytes # (Auto) 0.9 Monocytes # (Auto) 0.8 Eosinophils # (Auto) 0.2 Basophils # (Auto) 0.1 CBC Comment DIFF FINAL Differential Comment Prothrombin Time 10.0 Prothromb Time International Ratio 1.0 Activated Partial Thromboplast Time 28.5 Blood Urea Nitrogen 53 Creatinine 13.49 Random Glucose 91 Total Protein 8.1 Albumin 3.5 Calcium Level 9.6 Phosphorus Level 6.7 Magnesium Level 2.4 Alkaline Phosphatase 93 Aspartate Amino Transf (AST/SGOT) 9 Alanine Aminotransferase (ALT/SGPT) 12 Total Bilirubin 0.3 Sodium Level 133 Potassium Level 5.3 Chloride Level 97 Carbon Dioxide Level 28.0 Anion Gap 8 Estimat Glomerular Filtration Rate 5 Lactic Acid Level 1.2 Date/Time Source Procedure Growth Status 04/15/17 02:50 Blood Peripheral Aerobic Blood Culture Pending Received 04/15/17 02:50 Blood Peripheral Anaerobic Blood Culture Pending Received Imaging Last 48 hours Impressions Chest X-Ray 04/15/17 0235 Signed Impressions: Service Date/Time: Saturday, April 15, 2017 03:17 - CONCLUSION: No acute cardiopulmonary abnormality is identified. Giovanni River MD Upper Extremity Ultrasound 04/15/17 0000 Signed Impressions: Service Date/Time: Saturday, April 15, 2017 02:58 - CONCLUSION: Diffuse subcutaneous edema of the right arm. In the right mid arm there is a complex collection that consists of partial fluid measuring up to 3.7 cm. This finding is nonspecific and could represent an infected or sterile complex fluid collection. Giovanni River MD Assessment and Plan Plan edema likely worsened by outflow venous obstruction 1. HEAVEN wrap arm fingers to shoulder 2. Rec changing R chest catheter to LEFT side 3. May require fistulogram w/ central venous intervention but ideally should wait until surgical graft heals 4. Last resort would be access ligation, but given failed L UE AVF that would be last resort Genaro Nunez MD Apr 15, 2017 08:02
[2017-04-15] MEDS ORDERED: SODIUM CHLOR 0.9% 1000 ML INJ 1,000 ML IV PRN (08:23)
[2017-04-15] MEDS ORDERED: SODIUM CHLOR 0.9% 1000 ML INJ 1,000 ML OTHER PRN ×2 (08:23)
[2017-04-15] MEDS: MORPHINE SULFATE 2 MG/ML INJ IV PUSH PRN ×4 (08:25→21:01)
[2017-04-15] MEDS: SODIUM CHLORIDE 0.9% FLUSH 10 ML FLUSH IV FLUSH PRN ×2 (08:27→11:21)
[2017-04-15] MEDS ORDERED: HEPARIN SODIUM - IV 10,000 UNITS/10 ML VIAL IV FLUSH PRN (08:30)
[2017-04-15] MEDS ORDERED: NITROGLYCERIN 0.4 MG SL 25 TABS/BTL SL PRN (08:30)
[2017-04-15] MEDS ORDERED: SODIUM CHLORIDE 0.9% FLUSH 10 ML FLUSH IV FLUSH PRN (08:30)
[2017-04-15] MEDS ORDERED: GELATIN 12 MM/7 MM FOAM TOP PRN (08:30)
[2017-04-15] MEDS ORDERED: MANNITOL 12.5 GM/50 ML VIAL IV PRN (08:30)
[2017-04-15] MEDS ORDERED: ALBUMIN 25% INJ 100 ML IV PRN (08:30)
[2017-04-15] MEDS ORDERED: cloNIDine HCL 0.1 MG TAB PO PRN (08:30)
[2017-04-15] MEDS ORDERED: GENTAMICIN SULFATE 20 MG/2 ML VIAL OTHER PRN (08:30)
[2017-04-15] MEDS ORDERED: EPOETIN ALFA 10,000 UNITS/ML VIAL IV PUSH PRN (08:30)
[2017-04-15] MEDS ORDERED: ONDANSETRON HCL 4 MG/2 ML VIAL IV PUSH PRN (08:30)
[2017-04-15] MEDS ORDERED: HEPARIN SODIUM - IV 10,000 UNITS/10 ML VIAL PRN (08:30)
[2017-04-15] MEDS ORDERED: diphenhydrAMINE HCL 25 MG CAP PO PRN (08:30)
[2017-04-15] MEDS: CINACALCET HYDROCHLORIDE 30 MG TAB PO SCH (08:35)
[2017-04-15] MEDS: DOCUSATE SODIUM 50 MG/SENNA 8.6 MG TAB PO SCH ×2 (08:36→21:00)
[2017-04-15] MEDS: METOPROLOL SUCCINATE 50 MG EXTENDED RELEASE TAB PO SCH (08:36)
--- NOTE | 2017-04-15 08:36 | PD.CONS ---
HPI Service Nephrology Consult Requested By Reason for Consult ESRD Primary Care Physician Vikash Hedrick MD History of Present Illness Mr. Rubio is a 47 year old with history of ESRD for which he is on HD MWF. Patient underwent right upper extremity AVF placement on and was discharged the following day. He reports that after he went home, he noticed progressive swelling of the right upper extremity associated with pain. He denies any fever. He has been admitted to the hospital with these complaints. US revealed edema. There also appears to be some fluid collection in the right mid arm. He has been seen by Dr. Nunez. I have reviewed his note. Patient needs dialysis today. Review of Systems Constitutional: COMPLAINS OF: Fatigue, DENIES: Diaphoretic episodes, Fever Cardiovascular: DENIES: Chest pain, Palpitations Gastrointestinal: DENIES: Abdominal pain, Black stools Hematologic/lymphatic: DENIES: Bruising Neurologic: DENIES: Abnormal gait, Headache, Localized weakness Past Family Social History Allergies: Coded Allergies: No Known Allergies (Verified Allergy, Unknown, 04/15/17) Past Medical History Hypertension ESRD Secondary hyperparathyroidism. Reported Medications Docusate Sodium 100 Mg Cap 100 Mg PO BID PRN Oxycodone-Acetaminophen 5-325 (Oxycodone HCl/Acetaminophen) 5 Mg-325 Mg Tablet 1 Tab PO Q6H PRN Reported Renal Vitamin (B-Complex W/ C & Folic Acid) 1 Cap 1 Cap PO DAILY If on dialysis, take after treatment. Renvela (Sevelamer Carbonate) 800 Mg Tab 800 Mg PO TID Toprol XL (Metoprolol Succinate) 100 Mg Tab 100 Mg PO DAILY Altace (Ramipril) 10 Mg Cap 10 Mg PO BID Clonidine (Clonidine HCl) 0.2 Mg Tab 0.2 Mg PO BID Sensipar (Cinacalcet) 30 Mg Tab 30 Mg PO DAILY Amlodipine (Amlodipine Besylate) 10 Mg Tab 10 Mg PO DAILY Active Ordered Medications Current Medications Medications (Trade) Dose Ordered Sig/Roberta Route Start Time Stop Time Status Last Admin Piperacillin Sod/ Tazobactam Sod 50 ml @ 100 mls/hr Q6H IV 04/15/17 10:00 (NS Flush) 2 ml UNSCH PRN IV FLUSH 04/15/17 04:15 (NS Flush) 2 ml BID IV FLUSH 04/15/17 09:00 (Zofran Inj) 4 mg Q6H PRN IVP 04/15/17 04:15 (Tylenol) 650 mg Q6H PRN PO 04/15/17 04:15 ([place] 5-325 Mg) 1 tab Q4H PRN PO 04/15/17 04:15 (Morphine Inj) 2 mg Q3H PRN IV PUSH 04/15/17 04:15 (Ayse-Colace) 1 tab BID PO 04/15/17 09:00 (Milk Of Magnesia Liq) 30 ml Q12H PRN PO 04/15/17 04:15 (Senokot) 17.2 mg Q12H PRN PO 04/15/17 04:15 (Dulcolax Supp) 10 mg DAILY PRN RECTAL 04/15/17 04:15 (Lactulose Liq) 30 ml DAILY PRN PO 04/15/17 04:15 (Norvasc) 10 mg DAILY PO 04/15/17 09:00 (Nephrocaps) 1 cap DAILY PO 04/15/17 09:00 (Sensipar) 30 mg DAILY PO 04/15/17 09:00 (Catapres) 0.2 mg BID PO 04/15/17 09:00 (Toprol Xl) 100 mg DAILY PO 04/15/17 09:00 (Altace) 10 mg BID PO 04/15/17 09:00 Family History reviewed, non contributory Social History no tobacco, no ETOH Physical Exam Vital Signs Vital Signs Date Time Temp Pulse Resp B/P (MAP) Pulse Ox O2 Delivery O2 Flow Rate FiO2 04/15/17 08:17 04/15/17 02:32 98 16 125/96 (106) 98 Room Air Physical Exam GENERAL: patient is not in distress. SKIN: Warm and dry. HEAD: Normocephalic. EYES: No scleral icterus. No injection or drainage. NECK: Supple, trachea midline. No JVD or lymphadenopathy. CARDIOVASCULAR: Regular rate and rhythm without murmurs, gallops, or rubs. RESPIRATORY: Breath sounds equal bilaterally. No accessory muscle use. GASTROINTESTINAL: Abdomen soft, non-tender, nondistended. MUSCULOSKELETAL: swelling of the right arm, extending to forearm and hands, fingers. Subcutaneous edema. AVF seems patent. BACK: Nontender without obvious deformity. No CVA tenderness. Laboratory Laboratory Tests Test 04/15/17 02:50 White Blood Count 5.4 Red Blood Count 3.39 Hemoglobin 10.9 Hematocrit 32.4 Mean Corpuscular Volume 95.6 Mean Corpuscular Hemoglobin 32.3 Mean Corpuscular Hemoglobin Concent 33.8 Red Cell Distribution Width 14.6 Platelet Count 200 Mean Platelet Volume 8.8 Neutrophils (%) (Auto) 61.6 Lymphocytes (%) (Auto) 17.5 Monocytes (%) (Auto) 15.5 Eosinophils (%) (Auto) 4.1 Basophils (%) (Auto) 1.3 Neutrophils # (Auto) 3.3 Lymphocytes # (Auto) 0.9 Monocytes # (Auto) 0.8 Eosinophils # (Auto) 0.2 Basophils # (Auto) 0.1 CBC Comment DIFF FINAL Differential Comment Prothrombin Time 10.0 Prothromb Time International Ratio 1.0 Activated Partial Thromboplast Time 28.5 Blood Urea Nitrogen 53 Creatinine 13.49 Random Glucose 91 Total Protein 8.1 Albumin 3.5 Calcium Level 9.6 Phosphorus Level 6.7 Magnesium Level 2.4 Alkaline Phosphatase 93 Aspartate Amino Transf (AST/SGOT) 9 Alanine Aminotransferase (ALT/SGPT) 12 Total Bilirubin 0.3 Sodium Level 133 Potassium Level 5.3 Chloride Level 97 Carbon Dioxide Level 28.0 Anion Gap 8 Estimat Glomerular Filtration Rate 5 Lactic Acid Level 1.2 Date/Time Source Procedure Growth Status 04/15/17 02:50 Blood Peripheral Aerobic Blood Culture Pending Received 04/15/17 02:50 Blood Peripheral Anaerobic Blood Culture Pending Received Result Diagram: 04/15/17 0250 04/15/17 0250 Assessment and Plan Problem List: (1) ESRD (end stage renal disease) on dialysis ICD Codes: N18.6 - End stage renal disease; Z99.2 - Dependence on renal dialysis Plan: Dialysis today and MWF. Epogen for anemia. Monitor fluid and electrolytes. (2) HTN (hypertension) ICD Codes: I10 - Essential (primary) hypertension Plan: resume home medications. Monitor. (3) Metabolic bone disease ICD Codes: E88.9 - Metabolic disorder, unspecified; M90.80 - Osteopathy in diseases classified elsewhere, unspecified site Plan: continue phosphorus binder and Sensipar. Monitor phosphorus. Phosphorus binder not in MAR currently. (4) Swelling of right upper extremity ICD Codes: M79.89 - Other specified soft tissue disorders Plan: recent access surgery. Some fluid collection noted. Could due to inflammation from surgery, but central vein stenosis will have to be considered. HEAVEN wrap recommended. Arm elevation may be useful. Vascular surgery followup. Assessment and Plan Thanks for the consult. Johann Oconnor MD Apr 15, 2017 08:36
[2017-04-15] MEDS: cloNIDine HCL 0.2 MG TAB PO SCH ×2 (08:38→21:00)
[2017-04-15 08:45] VITALS: BP 125/72; PULSE 88; RESP 19; TEMP 97.8; O2SAT 97
[2017-04-15] MEDS: SODIUM CHLORIDE 0.9% FLUSH 10 ML FLUSH IV FLUSH SCH ×2 (09:00→21:00)
[2017-04-15] MEDS: RAMIPRIL 5 MG CAP PO SCH ×2 (09:13→21:00)
[2017-04-15] MEDS: VITAMIN B CMPLX/VITC/FOLIC AC CAP PO SCH (09:13)
[2017-04-15] MEDS ORDERED: PIPERACIL-TAZO 2.25 GM PREMIX 50 ML IV SCH (10:00)
[2017-04-15 16:17] VITALS: BP 129/70; PULSE 92; RESP 18; TEMP 98.3; O2SAT 97
[2017-04-15 20:00] VITALS: BP 125/72; PULSE 101; RESP 16; TEMP 98.2; O2SAT 96
[2017-04-15] MEDS: PIPERACIL-TAZO 2.25 GM PREMIX 50 ML IV SCH (21:00)
[2017-04-16] VITALS (7 sets, daily range): BP systolic 97–132; BP diastolic 52–84; PULSE 81–98; RESP 16–20; TEMP 97.4–98.5; O2SAT 96–99
[2017-04-16] MEDS: ACETAMINOPHEN/HYDROcodone 325 MG/5 MG TAB PO PRN (00:21)
[2017-04-16] MEDS: MORPHINE SULFATE 2 MG/ML INJ IV PUSH PRN ×4 (04:08→21:32)
[2017-04-16 07:19] LABS: AUTOMATED NEUTROPHIL # 2.9 TH/MM3 (1.8-7.7); BASOPHIL % 0.7 % (0.0-2.0); EOSINOPHIL # 0.2 TH/MM3 (0-0.4); HEMATOCRIT 31.1 % (39.0-51.0); HEMOGLOBIN 10.3 GM/DL (13.0-17.0); LYMPH % 20.6 % (9.0-44.0); LYMPHOCYTE # 1.1 TH/MM3 (1.0-4.8); MEAN CORPUSCULAR HEMOGLOBIN 31.6 PG (27.0-34.0); MEAN CORPUSCULAR HGB CONC 33.2 % (32.0-36.0); MEAN PLATELET VOLUME 8.8 FL (7.0-11.0); MONO % 19.3 % (0.0-8.0); NEUT % 55.4 % (16.0-70.0); PLATELET COUNT 208 TH/MM3 (150-450); RED BLOOD COUNT 3.27 MIL/MM3 (4.50-5.90); RED CELL DISTRIBUTION WIDTH 14.7 % (11.6-17.2); WHITE BLOOD COUNT 5.2 TH/MM3 (4.0-11.0)
[2017-04-16 07:57] LABS: ALBUMIN 3.2 GM/DL (3.4-5.0); ALKALINE PHOSPHATASE 89 U/L (45-117); ALT (GPT) 13 U/L (12-78); AST (GOT) 9 U/L (15-37); BICARBONATE 27.5 MEQ/L (21.0-32.0); BLOOD UREA NITROGEN 40 MG/DL (7-18); CHLORIDE 98 MEQ/L (98-107); GLOMERULAR FILTRATION RATE 6 ML/MIN (>89); GLUCOSE,RANDOM 86 MG/DL (74-106); PHOSPHORUS 6.2 MG/DL (2.5-4.9); SODIUM (NA) 134 MEQ/L (136-145); TOTAL BILIRUBIN ADULT 0.4 MG/DL (0.2-1.0)
--- NOTE | 2017-04-16 08:00 | HHI.PR ---
Subjective Remarks Patient is in bed he does not appear in acute distress. Says right arm pain is better controlled. Swelling in his right arm is the same did not improve much. No fever or chills overnight. No nausea or vomiting no diarrhea or constipation. Does not have much appetite. Had dialysis yesterday. Objective Vitals Vital Signs Date Time Temp Pulse Resp B/P (MAP) Pulse Ox O2 Delivery O2 Flow Rate FiO2 04/16/17 04:00 Room Air 04/16/17 04:00 97.7 90 16 122/65 (84) 96 04/16/17 00:00 Room Air 04/16/17 00:00 98.5 95 16 105/58 (74) 96 04/15/17 20:00 98.2 101 16 125/72 (89) 96 04/15/17 20:00 Room Air 04/15/17 16:17 98.3 92 18 129/70 (89) 97 04/15/17 11:26 18 04/15/17 08:45 97.8 88 19 125/72 (89) 97 04/15/17 08:17 I/O 04/15/17 04/15/17 04/15/17 04/16/17 04/16/17 04/16/17 07:00 15:00 23:00 07:00 15:00 23:00 Intake Total 300 ml 240 ml Output Total 3000 ml Balance 300 ml -2760 ml Intake Oral 240 ml IV Total 300 ml Output Hemodialysis 3000 ml Result Diagram: 04/16/17 0642 04/15/17 0250 Imaging Last Impressions Chest X-Ray 04/15/17 0235 Signed Impressions: Service Date/Time: Saturday, April 15, 2017 03:17 - CONCLUSION: No acute cardiopulmonary abnormality is identified. Giovanni River MD Upper Extremity Ultrasound 04/15/17 0000 Signed Impressions: Service Date/Time: Saturday, April 15, 2017 02:58 - CONCLUSION: Diffuse subcutaneous edema of the right arm. In the right mid arm there is a complex collection that consists of partial fluid measuring up to 3.7 cm. This finding is nonspecific and could represent an infected or sterile complex fluid collection. Giovanni River MD Objective Remarks GENERAL: Pleasant middle-aged black male in no acute distress. HEENT: PERRLA, EOMI. No scleral icterus or conjunctival pallor. No lid lag or facial droop. CARDIOVASCULAR: Regular rate and rhythm. No obvious murmurs to auscultation. No chest tenderness to palpation. RESPIRATORY: No obvious rhonchi or wheezing. Clear to auscultation. Breath sounds equal bilaterally. GASTROINTESTINAL: Abdomen soft, non-tender, nondistended. BS normal. MUSCULOSKELETAL: Extremities without clubbing, cyanosis, or edema. No obvious deformities. RUE w/ significant erythema/induration right upper arm, decreased ROM due to swelling. Pulses intact. NEUROLOGICAL: Awake, alert and oriented x4. No focal neurologic deficits. Moving both upper and lower extremities spontaneously. A/P Problem List: (1) Abscess ICD Code: L02.91 - Cutaneous abscess, unspecified (2) ESRD (end stage renal disease) on dialysis ICD Code: N18.6 - End stage renal disease; Z99.2 - Dependence on renal dialysis (3) HTN (hypertension) ICD Code: I10 - Essential (primary) hypertension Assessment and Plan Abscess: concern for post-surgical abscess at recent site of RUE AV Graft, progressive swelling since surgery 04/09/17. Doppler RUE w/ diffuse subcutaneous edema of right arm, complex collection right mid arm possibly infection. Blood Cultures are pending Continue IV antibiotics Vanc/Zosyn. Follow up cultures Consult Vascular Sx seen by Dr. Nunez, appreciate recommendations ESRD on HD: M/W/F via Right Vas-Cath, follows w/ Dr. Hedrick, will consult to resume HD and to manage Vanc dosing. Resume home medications. HTN: Resume home medications, on multiple antihypertensives, monitor BP. DVT Prophylaxis: SCD/Teds. CM consulted for d/c planning as needed. Discussed the patient, nurse Celine Rivera MD Apr 16, 2017 08:00
[2017-04-16 08:29] LABS: CREATININE 11.66 MG/DL (0.60-1.30)
--- NOTE | 2017-04-16 08:30 | HHI.NPPN ---
Subjective Interval History Sitting on a chair. Right arm swelling is stable, not worse. Continues to have some discomfort. I am unable to appreciate a bruit. Review of Systems General Constitutional: Fatigue Objective Data Data Vital Signs Date Time Temp Pulse Resp B/P (MAP) Pulse Ox O2 Delivery O2 Flow Rate FiO2 04/16/17 04:00 Room Air 04/16/17 04:00 97.7 90 16 122/65 (84) 96 04/16/17 00:00 Room Air 04/16/17 00:00 98.5 95 16 105/58 (74) 96 04/15/17 20:00 98.2 101 16 125/72 (89) 96 04/15/17 20:00 Room Air 04/15/17 16:17 98.3 92 18 129/70 (89) 97 04/15/17 11:26 18 04/15/17 08:45 97.8 88 19 125/72 (89) 97 -: 04/16/17 0642 04/15/17 0250 Physical Exam General Appearance: Well Developed, No Acute Distress Throat Throat Exam: Oral Mucosa [place] & Moist Neck Neck Exam: Neck Supple Pulmonary Resp Exam: Clear Bilaterally, Breath Sounds Equal Cardiology CV Exam: Regular, Normal Sinus Rhythm Gastrointestinal/Abdomen GI Exam: Soft, Non-Tender Musculoskeletal MS Remarks right arm swelling. Integumentary Skin Exam: Intact Extremeties Extremeties Remarks edema of the right upper extremity. Neurologic Neuro Exam: Alert, Awake, Oriented, Moving All Extremities Assessment/Plan Problem List: (1) ESRD (end stage renal disease) on dialysis ICD Codes: N18.6 - End stage renal disease; Z99.2 - Dependence on renal dialysis Plan: Dialysis will be continued MWF. Epogen for anemia. Monitor fluid and electrolytes. (2) HTN (hypertension) ICD Codes: I10 - Essential (primary) hypertension Plan: On Altace. BP is acceptable. Monitor. (3) Metabolic bone disease ICD Codes: E88.9 - Metabolic disorder, unspecified; M90.80 - Osteopathy in diseases classified elsewhere, unspecified site Plan: continue phosphorus binder and Sensipar. Monitor phosphorus. Labs are pending today. I have restarted Renvela. Change diet to potassium and phosphorus restricted diet. No need for protein restriction. (4) Swelling of right upper extremity ICD Codes: M79.89 - Other specified soft tissue disorders Plan: recent access surgery. Some fluid collection noted. Could due to inflammation from surgery, but central vein stenosis will have to be considered. HEAVEN wrap recommended. Arm elevation may be useful. Vascular surgery followup. Newly created AV access may have thrombosed. Consider stopping antibiotic. Johann Oconnor MD Apr 16, 2017 08:30
[2017-04-16] MEDS: VITAMIN B CMPLX/VITC/FOLIC AC CAP PO SCH (09:00)
[2017-04-16] MEDS: CINACALCET HYDROCHLORIDE 30 MG TAB PO SCH (09:47)
[2017-04-16] MEDS: SODIUM CHLORIDE 0.9% FLUSH 10 ML FLUSH IV FLUSH SCH ×2 (09:47→21:00)
[2017-04-16] MEDS: PIPERACIL-TAZO 2.25 GM PREMIX 50 ML IV SCH ×2 (09:47→21:11)
[2017-04-16] MEDS: DOCUSATE SODIUM 50 MG/SENNA 8.6 MG TAB PO SCH ×2 (09:47→21:11)
[2017-04-16] MEDS: RAMIPRIL 5 MG CAP PO SCH ×3 (09:48→21:11)
[2017-04-16] MEDS: METOPROLOL SUCCINATE 50 MG EXTENDED RELEASE TAB PO SCH (09:48)
[2017-04-16] MEDS: cloNIDine HCL 0.2 MG TAB PO SCH ×2 (09:48→21:11)
[2017-04-16] MEDS: SEVELAMER CARBONATE 800 MG TAB PO SCH ×2 (12:32→16:36)
[2017-04-17 00:06] VITALS: BP 98/53; PULSE 85; RESP 18; TEMP 98.6; O2SAT 100
[2017-04-17] MEDS: ACETAMINOPHEN/HYDROcodone 325 MG/5 MG TAB PO PRN ×3 (04:58→21:53)
[2017-04-17 05:36] VITALS: BP 96/53; PULSE 84; RESP 18; TEMP 97.3; O2SAT 99
--- NOTE | 2017-04-17 07:58 | HHI.NPPN ---
Subjective Interval History To have dialysis today. Right arm swelling. Review of Systems General Constitutional: Fatigue Objective Data Data Vital Signs Date Time Temp Pulse Resp B/P (MAP) Pulse Ox O2 Delivery O2 Flow Rate FiO2 04/17/17 05:36 97.3 84 18 96/53 (67) 99 04/17/17 04:00 Room Air 04/17/17 00:06 98.6 85 18 98/53 (68) 100 04/17/17 00:00 Room Air 04/16/17 20:00 Room Air 04/16/17 16:51 98 21 04/16/17 16:00 97.4 81 20 97/52 (67) 98 04/16/17 12:18 99 21 04/16/17 12:00 98.2 96 20 115/58 (77) 97 04/16/17 08:00 97.7 98 20 120/60 (80) 99 -: 04/16/17 0642 04/16/17 0642 Physical Exam General Appearance: Well Developed, No Acute Distress Throat Throat Exam: Oral Mucosa [place] & Moist Neck Neck Exam: Neck Supple Pulmonary Resp Exam: Clear Bilaterally, Breath Sounds Equal Cardiology CV Exam: Regular, Normal Sinus Rhythm Gastrointestinal/Abdomen GI Exam: Soft, Non-Tender Musculoskeletal MS Remarks right arm swelling. Integumentary Skin Exam: Intact Extremeties Extremeties Remarks edema of the right upper extremity. Neurologic Neuro Exam: Alert, Awake, Oriented, Moving All Extremities Assessment/Plan Problem List: (1) ESRD (end stage renal disease) on dialysis ICD Codes: N18.6 - End stage renal disease; Z99.2 - Dependence on renal dialysis Plan: Dialysis will be continued MWF. Epogen for anemia. Monitor fluid and electrolytes. (2) HTN (hypertension) ICD Codes: I10 - Essential (primary) hypertension Plan: On Altace. BP is acceptable. Monitor. (3) Metabolic bone disease ICD Codes: E88.9 - Metabolic disorder, unspecified; M90.80 - Osteopathy in diseases classified elsewhere, unspecified site Plan: continue phosphorus binder and Sensipar. Monitor phosphorus. I have restarted Renvela. Changed diet to potassium and phosphorus restricted diet. No need for protein restriction. (4) Swelling of right upper extremity ICD Codes: M79.89 - Other specified soft tissue disorders Plan: recent access surgery. Some fluid collection noted. Could due to inflammation from surgery, but central vein stenosis will have to be considered. HEAVEN wrap recommended. Arm elevation may be useful. Vascular surgery followup. Newly created AV access may have thrombosed. Johann Oconnor MD Apr 17, 2017 07:58
[2017-04-17 08:08] VITALS: BP 105/56; PULSE 82; RESP 18; TEMP 97.9; O2SAT 98
--- NOTE | 2017-04-17 08:24 | HHI.PR ---
Subjective Remarks In bed appears in nad. Feels much better today. No n/v/d/c. Went for HD BP into a lower side discussed with the nurse will hold BP meds Patient has no pain i his right arm however selling is worsened after HD Objective Vitals Vital Signs Date Time Temp Pulse Resp B/P (MAP) Pulse Ox O2 Delivery O2 Flow Rate FiO2 04/17/17 05:36 97.3 84 18 96/53 (67) 99 04/17/17 04:00 Room Air 04/17/17 00:06 98.6 85 18 98/53 (68) 100 04/17/17 00:00 Room Air 04/16/17 20:00 Room Air 04/16/17 16:51 98 21 04/16/17 16:00 97.4 81 20 97/52 (67) 98 04/16/17 12:18 99 21 04/16/17 12:00 98.2 96 20 115/58 (77) 97 I/O 04/16/17 04/16/17 04/16/17 04/17/17 04/17/17 04/17/17 07:00 15:00 23:00 07:00 15:00 23:00 Intake Total 50 ml 240 ml Output Total 700 ml Balance 50 ml -460 ml Intake Oral 240 ml IV Total 50 ml Output Urine Total 700 ml Result Diagram: 04/16/17 0642 04/16/17 0642 Imaging Last Impressions Chest X-Ray 04/15/17 0235 Signed Impressions: Service Date/Time: Saturday, April 15, 2017 03:17 - CONCLUSION: No acute cardiopulmonary abnormality is identified. Giovanni River MD Upper Extremity Ultrasound 04/15/17 0000 Signed Impressions: Service Date/Time: Saturday, April 15, 2017 02:58 - CONCLUSION: Diffuse subcutaneous edema of the right arm. In the right mid arm there is a complex collection that consists of partial fluid measuring up to 3.7 cm. This finding is nonspecific and could represent an infected or sterile complex fluid collection. Giovanni River MD Objective Remarks GENERAL: Pleasant middle-aged black male in no acute distress. HEENT: PERRLA, EOMI. No scleral icterus or conjunctival pallor. No lid lag or facial droop. CARDIOVASCULAR: Regular rate and rhythm. No obvious murmurs to auscultation. No chest tenderness to palpation. RESPIRATORY: No obvious rhonchi or wheezing. Clear to auscultation. Breath sounds equal bilaterally. GASTROINTESTINAL: Abdomen soft, non-tender, nondistended. BS normal. MUSCULOSKELETAL: Extremities without clubbing, cyanosis, or edema. No obvious deformities. RUE w/ significant erythema/induration right upper arm, decreased ROM due to swelling. Pulses intact. NEUROLOGICAL: Awake, alert and oriented x4. No focal neurologic deficits. Moving both upper and lower extremities spontaneously. A/P Problem List: (1) Abscess ICD Code: L02.91 - Cutaneous abscess, unspecified (2) ESRD (end stage renal disease) on dialysis ICD Code: N18.6 - End stage renal disease; Z99.2 - Dependence on renal dialysis (3) HTN (hypertension) ICD Code: I10 - Essential (primary) hypertension Assessment and Plan ?Abscess: concern for post-surgical abscess at recent site of RUE AV Graft, progressive swelling since surgery 04/09/17. Doppler RUE w/ diffuse subcutaneous edema of right arm, complex collection right mid arm possibly infection. Blood Cultures are pending Continue IV antibiotics Vanc/Zosyn. Follow up cultures Consult Vascular Sx seen by Dr. Nunez, appreciate recommendations. Plans for surgical intervention tomorrow 04/17 ESRD on HD: M/W/F via Right Vas-Cath, follows w/ Dr. Hedrick, will consult to resume HD and to manage Vanc dosing. Resume home medications. HTN: Resume home medications, on multiple antihypertensives, monitor BP. DVT Prophylaxis: SCD/Teds. CM consulted for d/c planning as needed. Discussed the patient, nurse dc plan : pending improvement. Dr Nunez plans for surgical intervention tomorrow 04/17 Celine Rivera MD Apr 17, 2017 08:24
[2017-04-17] MEDS: cloNIDine HCL 0.2 MG TAB PO SCH ×2 (09:00→21:52)
[2017-04-17] MEDS: VITAMIN B CMPLX/VITC/FOLIC AC CAP PO SCH (09:00)
[2017-04-17] MEDS: DOCUSATE SODIUM 50 MG/SENNA 8.6 MG TAB PO SCH ×2 (09:00→21:52)
[2017-04-17] MEDS: METOPROLOL SUCCINATE 50 MG EXTENDED RELEASE TAB PO SCH (09:00)
[2017-04-17] MEDS: RAMIPRIL 5 MG CAP PO SCH ×2 (09:00→21:52)
[2017-04-17] MEDS: SEVELAMER CARBONATE 800 MG TAB PO SCH ×3 (09:00→15:54)
[2017-04-17] MEDS: CINACALCET HYDROCHLORIDE 30 MG TAB PO SCH (09:00)
[2017-04-17] MEDS: PIPERACIL-TAZO 2.25 GM PREMIX 50 ML IV SCH ×2 (09:01→21:54)
[2017-04-17 09:16] LABS: AUTOMATED NEUTROPHIL # 3.3 TH/MM3 (1.8-7.7); BASOPHIL % 0.8 % (0.0-2.0); EOSINOPHIL # 0.2 TH/MM3 (0-0.4); EOSINOPHIL % 4.1 % (0.0-4.0); HEMATOCRIT 31.9 % (39.0-51.0); HEMOGLOBIN 10.7 GM/DL (13.0-17.0); LYMPH % 19.7 % (9.0-44.0); LYMPHOCYTE # 1.1 TH/MM3 (1.0-4.8); MEAN CORPUSCULAR HEMOGLOBIN 32.1 PG (27.0-34.0); MEAN CORPUSCULAR HGB CONC 33.5 % (32.0-36.0); MEAN PLATELET VOLUME 8.8 FL (7.0-11.0); MONO % 14.6 % (0.0-8.0); MONOCYTE # 0.8 TH/MM3 (0-0.9); NEUT % 60.8 % (16.0-70.0); PLATELET COUNT 227 TH/MM3 (150-450); RED BLOOD COUNT 3.32 MIL/MM3 (4.50-5.90); RED CELL DISTRIBUTION WIDTH 14.2 % (11.6-17.2); WHITE BLOOD COUNT 5.4 TH/MM3 (4.0-11.0)
[2017-04-17 09:41] LABS: CALCIUM 9.7 MG/DL (8.5-10.1)
[2017-04-17 09:46] LABS: CREATININE 14.49 MG/DL (0.60-1.30)
[2017-04-17] MEDS ORDERED: Vancomycin Consult Pharmacy 1 EA OTHER SCH (11:30)
[2017-04-17] MEDS: SODIUM CHLORIDE 0.9% FLUSH 10 ML FLUSH IV FLUSH SCH ×2 (12:52→22:00)
[2017-04-17] MEDS ORDERED: VANCOMYCIN INJ 1,250 MG in SODIUM CHLOR 0.9% 250 ML INJ 250 ML IV SCH (13:00)
[2017-04-17] MEDS ORDERED: VANCOMYCIN INJ 1,500 MG in SODIUM CHLORID 0.9% 500 ML INJ 500 ML IV ONE (14:00)
[2017-04-17 14:34] VITALS: O2SAT 98
[2017-04-17 16:08] VITALS: BP 121/70; PULSE 107; RESP 18; TEMP 97.7; O2SAT 94
[2017-04-17 20:00] VITALS: BP 155/67; PULSE 99; RESP 16; TEMP 97.6; O2SAT 96
[2017-04-18] VITALS (7 sets, daily range): BP systolic 101–122; BP diastolic 53–64; PULSE 77–91; RESP 14–20; TEMP 97.3–97.8; O2SAT 94–100
--- NOTE | 2017-04-18 06:40 | PD.VS.PN ---
Subjective Subjective/Hospital Course Persistent marked edema R UE Objective Vitals/I&O Date Time Temp Pulse Resp B/P (MAP) Pulse Ox O2 Delivery O2 Flow Rate FiO2 04/18/17 04:00 97.8 91 16 116/58 (77) 96 04/18/17 00:00 97.3 89 14 119/64 (82) 94 04/17/17 20:00 97.6 99 16 155/67 (96) 96 04/17/17 16:20 98 Room Air 04/17/17 16:08 97.7 107 18 121/70 (87) 94 04/17/17 14:34 98 04/17/17 09:07 18 04/17/17 08:08 97.9 82 18 105/56 (72) 98 Physical Exam R UE motor intact but +++ edema including chest wall Laboratory Laboratory Tests Test 04/17/17 08:24 White Blood Count 5.4 Red Blood Count 3.32 Hemoglobin 10.7 Hematocrit 31.9 Mean Corpuscular Volume 96.0 Mean Corpuscular Hemoglobin 32.1 Mean Corpuscular Hemoglobin Concent 33.5 Red Cell Distribution Width 14.2 Platelet Count 227 Mean Platelet Volume 8.8 Neutrophils (%) (Auto) 60.8 Lymphocytes (%) (Auto) 19.7 Monocytes (%) (Auto) 14.6 Eosinophils (%) (Auto) 4.1 Basophils (%) (Auto) 0.8 Neutrophils # (Auto) 3.3 Lymphocytes # (Auto) 1.1 Monocytes # (Auto) 0.8 Eosinophils # (Auto) 0.2 Basophils # (Auto) 0.0 CBC Comment DIFF FINAL Differential Comment Blood Urea Nitrogen 57 Creatinine 14.49 Random Glucose 73 Calcium Level 9.7 Sodium Level 132 Potassium Level 6.7 Chloride Level 95 Carbon Dioxide Level 27.0 Anion Gap 10 Estimat Glomerular Filtration Rate 4 Date/Time Source Procedure Growth Status 04/15/17 02:50 Blood Peripheral Aerobic Blood Culture - Preliminary NO GROWTH IN 2 DAYS Resulted 04/15/17 02:50 Blood Peripheral Anaerobic Blood Culture - Preliminary NO GROWTH IN 2 DAYS Resulted Assessment and Plan Plan edema likely worsened by outflow venous obstruction discussed with patient options. will take to OR today for graft revision and R UE venogram with potential intervention may ultimately need graft ligation or catheter exchange for LEFT side NPO Genaro Nunez MD Apr 18, 2017 06:40
--- NOTE | 2017-04-18 07:48 | HHI.NPPN ---
Subjective Interval History To go to OR today. He is NPO. Start D10. Was hyperkalemic yesterday, was dialyzed. Review of Systems General Constitutional: Fatigue Objective Data Data Vital Signs Date Time Temp Pulse Resp B/P (MAP) Pulse Ox O2 Delivery O2 Flow Rate FiO2 04/18/17 04:00 97.8 91 16 116/58 (77) 96 04/18/17 00:00 97.3 89 14 119/64 (82) 94 04/17/17 20:00 97.6 99 16 155/67 (96) 96 04/17/17 16:20 98 Room Air 04/17/17 16:08 97.7 107 18 121/70 (87) 94 04/17/17 14:34 98 04/17/17 09:07 18 04/17/17 08:08 97.9 82 18 105/56 (72) 98 -: 04/17/17 0824 04/17/17 0824 Physical Exam General Appearance: Well Developed, No Acute Distress Throat Throat Exam: Oral Mucosa [place] & Moist Neck Neck Exam: Neck Supple Pulmonary Resp Exam: Clear Bilaterally, Breath Sounds Equal Cardiology CV Exam: Regular, Normal Sinus Rhythm Gastrointestinal/Abdomen GI Exam: Soft, Non-Tender Musculoskeletal MS Remarks right arm swelling. Integumentary Skin Exam: Intact Extremeties Extremeties Remarks edema of the right upper extremity. Neurologic Neuro Exam: Alert, Awake, Oriented, Moving All Extremities Assessment/Plan Problem List: (1) ESRD (end stage renal disease) on dialysis ICD Codes: N18.6 - End stage renal disease; Z99.2 - Dependence on renal dialysis Plan: Dialysis will be continued MWF. Epogen for anemia. Monitor fluid and electrolytes. In order to prevent hyperkalemia, I have ordered D10 when he is NPO. (2) HTN (hypertension) ICD Codes: I10 - Essential (primary) hypertension Plan: On Altace. BP is acceptable. Monitor. (3) Metabolic bone disease ICD Codes: E88.9 - Metabolic disorder, unspecified; M90.80 - Osteopathy in diseases classified elsewhere, unspecified site Plan: continue phosphorus binder and Sensipar. Monitor phosphorus. I have restarted Renvela. Changed diet to potassium and phosphorus restricted diet. No need for protein restriction. (4) Swelling of right upper extremity ICD Codes: M79.89 - Other specified soft tissue disorders Plan: recent access surgery. Some fluid collection noted. Could due to inflammation from surgery, but central vein stenosis will have to be considered. HEAVEN wrap recommended. Arm elevation may be useful. Vascular surgery followup. To OR today. Dr. Nunez's note reviewed. Newly created AV access may have thrombosed. Johann Oconnor MD Apr 18, 2017 07:48
[2017-04-18] MEDS ORDERED: DEXTROSE 10% INJ 1,000 ML IV SCH (08:00)
[2017-04-18] MEDS: RAMIPRIL 5 MG CAP PO SCH ×3 (09:44→22:01)
[2017-04-18] MEDS: SEVELAMER CARBONATE 800 MG TAB PO SCH ×3 (09:44→17:51)
[2017-04-18] MEDS: METOPROLOL SUCCINATE 50 MG EXTENDED RELEASE TAB PO SCH (09:44)
[2017-04-18] MEDS: DOCUSATE SODIUM 50 MG/SENNA 8.6 MG TAB PO SCH ×2 (09:45→22:02)
[2017-04-18] MEDS: CINACALCET HYDROCHLORIDE 30 MG TAB PO SCH (09:45)
[2017-04-18] MEDS: SODIUM CHLORIDE 0.9% FLUSH 10 ML FLUSH IV FLUSH SCH ×2 (09:45→22:02)
[2017-04-18] MEDS: VITAMIN B CMPLX/VITC/FOLIC AC CAP PO SCH (09:45)
[2017-04-18] MEDS: cloNIDine HCL 0.2 MG TAB PO SCH ×2 (09:45→22:02)
[2017-04-18] MEDS: PIPERACIL-TAZO 2.25 GM PREMIX 50 ML IV SCH ×2 (09:46→22:01)
--- NOTE | 2017-04-18 10:21 | HHI.PR ---
Subjective Remarks Pt complains of pain on the right upper ext, 09/20. scheduled to go to OR today. Not sure at what time. denies any n/v Objective Vitals Vital Signs Date Time Temp Pulse Resp B/P (MAP) Pulse Ox O2 Delivery O2 Flow Rate FiO2 04/18/17 08:00 97.3 85 20 122/58 (79) 97 04/18/17 04:00 97.8 91 16 116/58 (77) 96 04/18/17 04:00 Room Air 04/18/17 00:00 97.3 89 14 119/64 (82) 94 04/18/17 00:00 Room Air 04/17/17 20:00 97.6 99 16 155/67 (96) 96 04/17/17 19:00 Room Air 04/17/17 16:20 98 Room Air 04/17/17 16:08 97.7 107 18 121/70 (87) 94 04/17/17 14:34 98 I/O 04/17/17 04/17/17 04/17/17 04/18/17 04/18/17 04/18/17 07:00 15:00 23:00 07:00 15:00 23:00 Intake Total 240 ml 910 ml 0 ml Output Total 700 ml 1000 ml 0 ml Balance -460 ml -1000 ml 910 ml 0 ml Intake Oral 240 ml 360 ml 0 ml IV Total 550 ml Output Urine Total 700 ml 0 ml Hemodialysis 1000 ml # Bowel Movements 1 0 Result Diagram: 04/17/17 0824 04/17/17 0824 Imaging Last Impressions Chest X-Ray 04/15/17 0235 Signed Impressions: Service Date/Time: Saturday, April 15, 2017 03:17 - CONCLUSION: No acute cardiopulmonary abnormality is identified. Giovanni River MD Upper Extremity Ultrasound 04/15/17 0000 Signed Impressions: Service Date/Time: Saturday, April 15, 2017 02:58 - CONCLUSION: Diffuse subcutaneous edema of the right arm. In the right mid arm there is a complex collection that consists of partial fluid measuring up to 3.7 cm. This finding is nonspecific and could represent an infected or sterile complex fluid collection. Giovanni River MD Objective Remarks GENERAL:laying in bed HEENT: EOMI. CARDIOVASCULAR: Regular rate and rhythm. No obvious murmurs to auscultation. RESPIRATORY: No obvious rhonchi or wheezing. Clear to auscultation. GASTROINTESTINAL: Abdomen soft, non-tender, nondistended. BS normal. MUSCULOSKELETAL: RUE w/ significant erythema/induration right upper arm, decreased ROM due to swelling. Pulses intact. NEUROLOGICAL: Awake, alert and oriented x4. No focal neurologic deficits. Moving both upper and lower extremities spontaneously. A/P Problem List: (1) Abscess ICD Code: L02.91 - Cutaneous abscess, unspecified (2) ESRD (end stage renal disease) on dialysis ICD Code: N18.6 - End stage renal disease; Z99.2 - Dependence on renal dialysis (3) HTN (hypertension) ICD Code: I10 - Essential (primary) hypertension Assessment and Plan ?Abscess: concern for post-surgical abscess at recent site of RUE AV Graft, progressive swelling since surgery 04/09/17. Doppler RUE w/ diffuse subcutaneous edema of right arm, complex collection right mid arm possibly infection. Blood Cultures neg x 2 days Continue IV antibiotics Vanc/Zosyn. Vascular Sx seen by Dr. Nunez, following and will be taking pt to OR today ESRD on HD: M/W/F via Right Vas-Cath, follows w/ Dr. Hedrick, will consult to resume HD and to manage Vanc dosing. Resume home medications. HTN: Resume home medications, on multiple antihypertensives, monitor BP. DVT Prophylaxis: SCD/Teds. CM consulted for d/c planning as needed. Discharge Planning OR today Miley Park MD Apr 18, 2017 10:21
[2017-04-18 10:24] LABS: AUTOMATED NEUTROPHIL # 3.4 TH/MM3 (1.8-7.7); BASOPHIL % 0.9 % (0.0-2.0); EOSINOPHIL # 0.2 TH/MM3 (0-0.4); HEMATOCRIT 28.2 % (39.0-51.0); HEMOGLOBIN 9.5 GM/DL (13.0-17.0); LYMPH % 15.6 % (9.0-44.0); LYMPHOCYTE # 0.8 TH/MM3 (1.0-4.8); MEAN CELL VOLUME 95.7 FL (80.0-100.0); MEAN CORPUSCULAR HEMOGLOBIN 32.3 PG (27.0-34.0); MEAN CORPUSCULAR HGB CONC 33.8 % (32.0-36.0); MONO % 15.3 % (0.0-8.0); MONOCYTE # 0.8 TH/MM3 (0-0.9); NEUT % 64.2 % (16.0-70.0); PLATELET COUNT 226 TH/MM3 (150-450); RED BLOOD COUNT 2.94 MIL/MM3 (4.50-5.90); RED CELL DISTRIBUTION WIDTH 14.6 % (11.6-17.2); WHITE BLOOD COUNT 5.3 TH/MM3 (4.0-11.0)
[2017-04-18] MEDS ORDERED: MORPHINE SULFATE 2 MG/ML INJ IV PUSH ONE (10:30)
[2017-04-18 10:45] LABS: BICARBONATE 27.9 MEQ/L (21.0-32.0)
[2017-04-18 10:47] LABS: RANDOM VANCOMYCIN 30.4 COMMENT
[2017-04-18 10:52] LABS: CREATININE 12.23 MG/DL (0.60-1.30)
[2017-04-18] MEDS ORDERED: NEOSTIGMINE 5 MG/5 ML SYRINGE IV PUSH ONE (12:00)
[2017-04-18] MEDS ORDERED: ROCURONIUM INJ 50 MG/5 ML SYRINGE IV PUSH ONE (12:00)
[2017-04-18] MEDS ORDERED: GLYCOPYRROLATE 1 MG/5 ML SYRINGE IV PUSH ONE (12:00)
[2017-04-18] MEDS ORDERED: LIDOCAINE HCL 1% PF 5 ML SYRINGE OTHER ONE (12:00)
[2017-04-18] MEDS ORDERED: PHENYLEPH/NS 1000 MCG/10 ML SYR IV ONE (12:00)
[2017-04-18] MEDS ORDERED: PROPOFOL 200 MG/20 ML AMP IV ONE (12:00)
[2017-04-18] MEDS: DEXTROSE 10% INJ 500 ML IV SCH (12:46)
[2017-04-18] MEDS ORDERED: VANCOMYCIN HCL 1000 MG VIAL ONE (13:25)
[2017-04-18] MEDS ORDERED: THROMBIN (TOPICAL) 20,000 UNIT SPRAY KIT ONE (13:25)
[2017-04-18] MEDS ORDERED: PROTAMINE SULFATE 50 MG/5 ML VIAL ONE (13:25)
[2017-04-18] MEDS ORDERED: HEPARIN-NS/PF INJ 500 ML ONE (13:25)
[2017-04-18] MEDS ORDERED: HEPARIN SODIUM - IV 10,000 UNITS/10 ML VIAL ONE (13:25)
[2017-04-18] MEDS ORDERED: BUPIVACAINE HCL PF 0.5% 10 ML VIAL ONE (13:26)
[2017-04-18] MEDS ORDERED: BUPIVACAINE HCL PF 0.5% 30 ML VIAL ONE (14:10)
--- NOTE | 2017-04-18 15:26 | HHI.PR ---
cc: Genaro Nunez MD Immediate Post Op Note Procedure Date: Apr 18, 2017 Pre Op Diagnosis: Central vein occlusion s/p R UE AVG Post Op Diagnosis: Central vein thrombosis around catheter Surgeon: Genaro Nunez Aids Nurse(s): Giovanni Mendoza Procedure: R UE venogram Findings: Patent AVG Central vein (SCV) occlusion around graft but able to get wire easily past Additional Information: needs R Chest catheter exchanged for LEFT side Complications: none Specimen(s) removed: none Estimated blood loss: 30mL Anesthesia: General Drains: None Fluids: 400mL IVF Patient to: PACU Patient Condition: Good Date/Time of Procedure: SEE SURGICAL CARE RECORD Genaro Nunez MD Apr 18, 2017 15:26
[2017-04-18] MEDS ORDERED: DO NOT ADM ANY ANTICOAGULANT DRUGS PRN (17:30)
--- NOTE | 2017-04-18 19:39 | MP ---
cc: Genaro Nunez MD, Robert J MD DATE OF OPERATION: 04/18/2017 PREOPERATIVE DIAGNOSIS: Arm edema status post right upper extremity arteriovenous fistula, possible fistula occlusion. POSTOPERATIVE DIAGNOSIS: Patent fistula with central vein occlusion around a central venous catheter. PROCEDURE: Right upper extremity venogram. ATTENDING SURGEON: Genaro Nunez MD ANESTHESIA: General. INDICATIONS: Mr. Rubio is a gentleman with end-stage renal disease, who has a right brachial artery based access. He has a swollen arm post access creation and there is some concern for access thrombosis. He was taken to the operating room for exploration and venogram to evaluate his central veins given his arm swelling. There is no prior catheter-based imaging available for my review since his arm is swelling. Intraoperatively, it was found that his access is widely patent and his subclavian vein is thrombosed around his dialysis access catheter. PROCEDURE IN DETAIL: Informed consent was obtained from patient. He was taken to the operating room and placed supine on the operating room table. An appropriate timeout was taken to ensure the patient's identify, operative site and planned procedure. The administration of 1 gram of vancomycin was initiated prior to skin incision and will be discontinued after a single preoperative dose. Everyone in the room agreed with timeout and we proceeded. Vancomycin was chosen because of the patient's end-stage renal disease. His right arm was prepped and draped. An incision was made over the course of the fistula, carried down through subcutaneous tissue with electrocautery. The graft was identified and encircled with vessel loops. The patient was systemically heparinized with 3000 units of IV heparin. Proximal and distal controls were controlled with profunda clamps and a transverse graftotomy was made with an 11 blade and the clamps were released. The graft was widely patent and this was clearly evident. The graftotomy was closed with 5-0 Prolene suture. A 21-gauge micropuncture needle was used to access the fistula. This was exchanged using Seldinger technique for a micropuncture sheath, through which a fistulogram was obtained. This showed the patient's fistula to be widely patent, but the central veins were occluded. A 0.035 Glidewire was introduced. The micropuncture sheath was exchanged for a 4-[place] sheath and a Berenstein catheter was placed over the wire and through the sheath, then the Berenstein and Glidewire were navigated to the subclavian vein and into the superior vena cava. Subclavian venography showed there to be thrombus around the catheter that was narrowing the lumen of the fistula. The wire, catheter and sheath were removed. The graftotomy was closed with 6-0 Prolene suture. The wound was irrigated, infiltrated with Marcaine, made hemostatic and closed with 2-0 Polysorb and 2-0 nylon. Sponge and needle counts were correct at the end of the case. I was present, scrubbed and performed the entire procedure. MD NIK Arreaga//luis , 05:56 PM , 07:27 PM
[2017-04-18] MEDS: ACETAMINOPHEN/HYDROcodone 325 MG/5 MG TAB PO PRN (22:02)
[2017-04-19 04:08] VITALS: BP 103/61; PULSE 83; RESP 16; TEMP 97.3; O2SAT 93
[2017-04-19 08:00] VITALS: BP 126/58; PULSE 81; RESP 18; TEMP 97.9; O2SAT 96
[2017-04-19] MEDS: SEVELAMER CARBONATE 800 MG TAB PO SCH ×3 (08:00→17:00)
[2017-04-19] MEDS: DEXTROSE 10% INJ 500 ML IV SCH (08:30)
[2017-04-19] MEDS: METOPROLOL SUCCINATE 50 MG EXTENDED RELEASE TAB PO SCH (09:00)
[2017-04-19] MEDS: RAMIPRIL 5 MG CAP PO SCH (09:00)
[2017-04-19] MEDS: cloNIDine HCL 0.2 MG TAB PO SCH (09:00)
--- NOTE | 2017-04-19 10:49 | PD.VS.PN ---
Subjective POD #: 1 Subjective/Hospital Course 47/M with R UE Edema Pt s/p R UE Venogram with findings of central vein (SCV) occlusion around graft AVG-Patent Pt w/o c/o hand pain UE warm w/ motor intact Objective Vitals/I&O Date Time Temp Pulse Resp B/P (MAP) Pulse Ox O2 Delivery O2 Flow Rate FiO2 04/19/17 04:08 97.3 83 16 103/61 (75) 93 04/18/17 23:42 97.5 82 18 105/55 (72) 94 04/18/17 23:02 16 04/18/17 21:46 97.4 79 18 106/53 (70) 94 04/18/17 17:17 96 Nasal Cannula 2.00 04/18/17 16:50 97.3 77 18 101/55 (70) 100 04/18/17 16:44 96 Room Air 04/18/17 16:30 97.6 78 12 120/61 (80) 96 Room Air 04/18/17 16:15 79 11 107/50 (69) 94 04/18/17 16:00 77 12 116/58 (77) 95 04/18/17 15:45 83 8 117/57 (77) 98 04/18/17 15:42 97.6 83 20 108/61 (77) 92 Nasal Cannula 2 04/19/17 04/19/17 04/19/17 06:59 14:59 22:59 Intake Total 240 ml Output Total 0 ml Balance 240 ml Exam: GENERAL: A&OX3,NAD,GCS15 SKIN: UE Warm and dry w/ motor intact/ Incision to R UE intact w/o D/R HEAD: Normocephalic. EYES: No scleral icterus. No injection or drainage. NECK: Supple, trachea midline. No JVD or lymphadenopathy. R UE with moderate swelling Palpable R radial pulse Laboratory Date/Time Source Procedure Growth Status 04/15/17 02:50 Blood Peripheral Aerobic Blood Culture - Preliminary NO GROWTH IN 3 DAYS Resulted 04/15/17 02:50 Blood Peripheral Anaerobic Blood Culture - Preliminary NO GROWTH IN 3 DAYS Resulted Assessment and Plan Assessment: (1) AVF (arteriovenous fistula) (2) Swelling of right upper extremity Plan 47/M with R UE edema likely worsened by outflow venous obstruction Pt S/P R UE Venogram with findings of Central vein thrombosis around catheter Patent AVG Plan Recommend R Chest catheter exchanged for LEFT side D/W Nephrology D/C planning w/ out pt follow up Tiffani Land NP [facility] [phone] Discharge Planning Clear for d/c from a vascular stand point Arranged out pt f/u Tiffani Land Apr 19, 2017 10:49
[2017-04-19 12:00] VITALS: O2SAT 94
[2017-04-19 12:30] VITALS: BP 111/67; PULSE 92; RESP 18; TEMP 97.3; O2SAT 94
[2017-04-19] MEDS: PIPERACIL-TAZO 2.25 GM PREMIX 50 ML IV SCH (13:28)
[2017-04-19] MEDS: DOCUSATE SODIUM 50 MG/SENNA 8.6 MG TAB PO SCH (13:28)
[2017-04-19] MEDS: SODIUM CHLORIDE 0.9% FLUSH 10 ML FLUSH IV FLUSH SCH (13:29)
[2017-04-19] MEDS: CINACALCET HYDROCHLORIDE 30 MG TAB PO SCH (13:29)
[2017-04-19] MEDS: VITAMIN B CMPLX/VITC/FOLIC AC CAP PO SCH (13:30)
[2017-04-19 16:00] VITALS: BP 114/63; PULSE 110; RESP 20; TEMP 97.7; O2SAT 94
--- NOTE | 2017-04-19 16:46 | HHI.DCPOC ---
Discharge Care Plan Diagnosis: (1) AVF (arteriovenous fistula) (2) Swelling of right upper extremity Goals to Promote Your Health * To prevent worsening of your condition and complications * To maintain your health at the optimal level Directions to Meet Your Goals Take your medications as prescribed Follow your dietary instruction Follow activity as directed Keep your appointments as scheduled Take your immunizations and boosters as scheduled If your symptoms worsen call your PCP, if no PCP go to Urgent Care Center or Emergency Room Smoking is Dangerous to Your Health. Avoid second hand smoke Call the 24-hour hour crisis hotline for domestic abuse at Leroy Nuñez MD Apr 19, 2017 16:46
--- NOTE | 2017-04-19 16:53 | HHI.DS ---
Discharge Summary Admission Date Apr 15, 2017 at 04:20 Discharge Date: Apr 19, 2017 Admitting Diagnosis Right arm cellulitis. Right arm abscess. (1) ESRD (end stage renal disease) on dialysis ICD Code: N18.6 - End stage renal disease; Z99.2 - Dependence on renal dialysis (2) HTN (hypertension) ICD Code: I10 - Essential (primary) hypertension (3) Occlusion of peripherally inserted central catheter (PICC) line ICD Code: T82.898A - Other specified complication of vascular prosthetic devices, implants and grafts, initial encounter (4) AVF (arteriovenous fistula) ICD Code: I77.0 - Arteriovenous fistula, acquired (5) Swelling of right upper extremity ICD Code: M79.89 - Other specified soft tissue disorders Procedures PROCEDURE: Right upper extremity venogram: Patent fistula with central vein occlusion around a central venous catheter. Brief History - From Admission This is a 47-year-old male with a PMH of HTN and ESRD on HD M/W/F who presented to the ER w/ complaints of right arm swelling. Previous LUE AV Fistula failure , therefore underwent Right Vas-Cath Placement in addition to RUE AV graft by Dr. Nunez on 04/09/17. Per pt he's had RUE swelling since procedure, however now progressively worse. Pain is constant, severe, 9/10, non-radiating, worse w / movement. Denies fever or chills. On arrival, BP 125/96, HR 98, O2 sat 98% on RA. CBC essentially at baseline. Chemistry at baseline, creatinine 13.49, previously 12.60 on 04/10/17. Lactic Acid normal. INR 1.0. CXR with no acute findings. IUE Doppler with diffuse ceftazidime of right arm, complex collection consisting of partial fluid right mid arm, nonspecific possible infection. S/p Blood Cultures, Vanc/Zosyn in ER. CBC/BMP: 04/18/17 1000 04/18/17 1000 Significant Findings Laboratory Tests Test 04/17/17 08:24 04/18/17 10:00 Red Blood Count 3.32 MIL/MM3 (4.50-5.90) 2.94 MIL/MM3 (4.50-5.90) Hemoglobin 10.7 GM/DL (13.0-17.0) 9.5 GM/DL (13.0-17.0) Hematocrit 31.9 % (39.0-51.0) 28.2 % (39.0-51.0) Monocytes (%) (Auto) 14.6 % (0.0-8.0) 15.3 % (0.0-8.0) Eosinophils (%) (Auto) 4.1 % (0.0-4.0) Blood Urea Nitrogen 57 MG/DL (7-18) 41 MG/DL (7-18) Creatinine 14.49 MG/DL (0.60-1.30) 12.23 MG/DL (0.60-1.30) Random Glucose 73 MG/DL (74-106) Sodium Level 132 MEQ/L (136-145) 134 MEQ/L (136-145) Potassium Level 6.7 MEQ/L (3.5-5.1) 5.9 MEQ/L (3.5-5.1) Chloride Level 95 MEQ/L (98-107) Estimat Glomerular Filtration Rate 4 ML/MIN (>89) 5 ML/MIN (>89) Lymphocytes # (Auto) 0.8 TH/MM3 (1.0-4.8) Imaging Last Impressions Chest X-Ray 04/15/17 0235 Signed Impressions: Service Date/Time: Saturday, April 15, 2017 03:17 - CONCLUSION: No acute cardiopulmonary abnormality is identified. Giovanni River MD Upper Extremity Ultrasound 04/15/17 0000 Signed Impressions: Service Date/Time: Saturday, April 15, 2017 02:58 - CONCLUSION: Diffuse subcutaneous edema of the right arm. In the right mid arm there is a complex collection that consists of partial fluid measuring up to 3.7 cm. This finding is nonspecific and could represent an infected or sterile complex fluid collection. Giovanni River MD PE at Discharge sitting up in bed NAD mild diffuse forearm edema extending down to right hand Hospital Course Pt was admitted, started on iv abx out of presumption for abscess. Vascular surgery performed venogram which showed fistula with central vein occlusion around a central venous catheter as suspected cause of RUE edema; no evidence of abscess. D/w nephrology, will arrange to have his perm cath removed and a new one entered on his left side as an outpatient. Pt Condition on Discharge: Stable Discharge Disposition: Discharge Home Discharge Time: <= 30 minutes Discharge Instructions DIET: Follow Instructions for: Renal Failure Diet Activities you can perform: Weight Bearing as Rosa Other Activity Instructions: weight bearing as tolerated to right upper arm Follow up Referrals: Nephrology - 04/22/17 PCP Follow-up - 1 Week Vascular Surgery @ Vascular Surgery with Genaro Nunez MD Continued Medications: Amlodipine (Amlodipine) 10 Mg Tab 10 MG PO DAILY for Blood Pressure Management, #30 TAB 0 Refills B-Complex W/ C & Folic Acid (Renal Vitamin) 1 Cap 1 CAP PO DAILY for Nutritional Supplement, #30 CAP 0 Refills If on dialysis, take after treatment. Cinacalcet (Sensipar) 30 Mg Tab 30 MG PO DAILY, #30 TAB 0 Refills Clonidine (Clonidine) 0.2 Mg Tab 0.2 MG PO BID for Blood Pressure Management, #60 TAB 0 Refills Docusate Sodium (Docusate Sodium) 100 Mg Cap 100 MG PO BID PRN for CONSTIPATION, #60 CAP 0 Refills Metoprolol Succinate ER 24 HR (Toprol XL) 100 Mg Tab 100 MG PO DAILY, #30 TAB 0 Refills Oxycodone HCl/Acetaminophen (Oxycodone-Acetaminophen 5-325) 5 Mg-325 Mg Tablet 1 TAB PO Q6H PRN for Pain, #40 TAB Ramipril (Altace) 10 Mg Cap 10 MG PO BID, #60 CAP 0 Refills Sevelamer Carbonate (Renvela) 800 Mg Tab 800 MG PO TID for Control phosphorous levels, #90 TAB 0 Refills Leroy Nuñez MD Apr 19, 2017 16:53
--- NOTE | 2017-04-19 17:33 | HHI.NPPN ---
Subjective Renal Failure: Chronic, End Stage Renal Disease Interval History S/p venogram yesterday. Had dialysis today. He is ambulatory in room, anticipating discharge. (Pilar Bravo) Review of Systems General Constitutional: Fatigue (Pilar Bravo) Objective Data Data 04/19/17 04/20/17 19:00 07:00 Output Total 2000 ml Balance -2000 ml Hemodialysis 2000 ml Vital Signs Date Time Temp Pulse Resp B/P (MAP) Pulse Ox O2 Delivery O2 Flow Rate FiO2 04/19/17 12:30 97.3 92 18 111/67 (82) 94 04/19/17 12:00 94 Nasal Cannula 2.00 04/19/17 08:00 97.9 81 18 126/58 (80) 96 04/19/17 08:00 Room Air 04/19/17 04:08 97.3 83 16 103/61 (75) 93 04/18/17 23:42 97.5 82 18 105/55 (72) 94 04/18/17 23:02 16 04/18/17 21:46 97.4 79 18 106/53 (70) 94 (Pilar Bravo) -: 04/18/17 1000 04/18/17 1000 Tubes & Lines: Perma-Cath (Pilar Bravo) Physical Exam General Appearance: Well Developed, No Acute Distress (Pilar Bravo) Ears & Nose Ears & Nose Exam: Nasal Mucosa [place] (Pliar Bravo) Throat Throat Exam: Oral Mucosa [place] & Moist (Pilar Bravo) Neck Neck Exam: Neck Supple (Pilar Bravo) Pulmonary Resp Exam: Clear Bilaterally, Breath Sounds Equal (Pilar Bravo) Cardiology CV Exam: Regular, Normal Sinus Rhythm (Pilar Bravo) Gastrointestinal/Abdomen GI Exam: Soft, Non-Tender (Pilar Bravo) Musculoskeletal MS Exam: Normal Gait, Normal Tone (Pilar Bravo) Integumentary Skin Exam: Warm, Dry, Intact (Pilar Bravo) Extremeties Extremities Exam: Pedal Pulses Palpable, Moderate Edema (Pilar Bravo) Neurologic Neuro Exam: Alert, Awake, Oriented, Speech Clear, Moving All Extremities (Pilar Bravo) Assessment/Plan Discussed Condition With: Patient Assessment Summary: Anemia of CKD, Hypertension, End Stage Renal Disease Problem List: (1) ESRD (end stage renal disease) on dialysis ICD Codes: N18.6 - End stage renal disease; Z99.2 - Dependence on renal dialysis Plan: Dialysis will be continued MWF. Today had 2L fluid removal. Stable for discharge today. Will go home with Permcath. Plan is to go to vascular center Saturday at 1230. They will remove existing PC and place another on left side. His HD chair has been moved to 1245 Saturday. The patient is aware of the plans. NPO after midnight Saturday night. We will follow in outpatient setting Importance of using phosphorus binders was encouraged. Epogen with dialysis for anemia. (2) Swelling of right upper extremity ICD Codes: M79.89 - Other specified soft tissue disorders Plan: Vascular followed, s/p venogram showing stenosis of vessels where permcath sits. Needs it removed. See above. To follow with vascular at discharge. HEAVEN wrap, elevation. (3) Metabolic bone disease ICD Codes: E88.9 - Metabolic disorder, unspecified; M90.80 - Osteopathy in diseases classified elsewhere, unspecified site Plan: Advised binder use with meals, on Renvela and Sensipar. potassium and phosphorus restricted diet at discharge. High protein diet. (4) HTN (hypertension) ICD Codes: I10 - Essential (primary) hypertension Plan: Stable, medications were reviewed. (Pilar Bravo) Plan patient was seen and examined. Agree with above assessment and plan. (Johann Oconnor MD) Pilar Bravo Apr 19, 2017 17:33 Johann Oconnor MD Apr 19, 2017 21:31
== END 2017-04-19 18:28 | disposition home or self-care (01) | DRG 314 ==
LOC: NEPE 01:27 → NEDA 04:20 → NEDH 10:12 → N04A 14:05
PROVIDERS: ADMIT Hospitalist; ATTEND Hospitalist
PROC: 5A1D70Z Performance of Urinary Filtration, Intermittent, Less than 6 Hours Per Day (ICD-10-PCS; 2017-04-15)
PROC: B51M1ZZ Fluoroscopy of Right Upper Extremity Veins using Low Osmolar Contrast (ICD-10-PCS; principal; 2017-04-18 14:18)
DX: T82.868A Thrombosis due to vascular prosthetic devices, implants and grafts, initial encounter (principal); I82.B11 Acute embolism and thrombosis of right subclavian vein; I13.2 Hypertensive heart and chronic kidney disease with heart failure and with stage 5 chronic kidney disease, or end stage renal disease; N18.6 End stage renal disease; I50.9 Heart failure, unspecified; N25.81 Secondary hyperparathyroidism of renal origin; E88.89 Other specified metabolic disorders; R60.0 Localized edema; E87.5 Hyperkalemia; D63.1 Anemia in chronic kidney disease; Z99.2 Dependence on renal dialysis
CPT/HCPCS: 71045; 76882; 76937; 80048; 80053; 80202; 83605; 83735; 84100; 85025; 85610; 85730; 87040; 90935; 96374; 96375; C1769; J1580; J1644; J2270; J2370; J2543; J2710; J2720; J3010; J3370; J7040; J7050; Q4081